=== PATIENT | male | born 1975 | race Caucasian/White ===

== ENCOUNTER 2017-07-03 10:09 | Emergency (ER) | END 2017-07-03 17:03 | disposition home or self-care (01) ==

== ENCOUNTER 2017-07-14 16:15 | Inpatient (IN) | END 2017-07-16 16:45 | disposition home or self-care (01) | DRG 378 ==

== ENCOUNTER 2017-07-31 09:05 | Emergency (ER) | END 2017-07-31 19:05 | disposition home or self-care (01) ==

== ENCOUNTER 2017-08-01 09:57 | Emergency (ER) | END 2017-08-01 22:08 | disposition left against medical advice (07) ==

== ENCOUNTER 2017-08-14 08:16 | Emergency (ER) | END 2017-08-14 12:22 | disposition home or self-care (01) ==

== ENCOUNTER 2017-08-27 07:09 | Emergency (ER) | END 2017-08-27 10:08 | disposition home or self-care (01) ==

== ENCOUNTER 2017-09-09 07:12 | Emergency (ER) | END 2017-09-09 16:07 | disposition home or self-care (01) ==

== ENCOUNTER 2017-09-18 07:12 | Emergency (ER) | END 2017-09-18 10:51 | disposition home or self-care (01) ==

== ENCOUNTER 2017-10-02 07:48 | Emergency (ER) | END 2017-10-02 10:22 | disposition home or self-care (01) ==

== ENCOUNTER 2017-10-11 07:44 | Emergency (ER) | END 2017-10-11 10:34 | disposition home or self-care (01) ==

== ENCOUNTER 2017-10-14 13:47 | Emergency (ER) | END 2017-10-14 18:43 | disposition left against medical advice (07) ==

== ENCOUNTER 2017-10-19 09:58 | Emergency (ER) | END 2017-10-19 12:55 | disposition home or self-care (01) ==

== ENCOUNTER 2017-10-27 10:15 | Emergency (ER) | END 2017-10-27 14:30 | disposition home or self-care (01) ==

== ENCOUNTER 2017-11-02 10:18 | Emergency (ER) | END 2017-11-02 13:14 | disposition home or self-care (01) ==

== ENCOUNTER 2017-11-03 08:52 | Emergency (ER) | END 2017-11-03 14:57 | disposition home or self-care (01) ==

== ENCOUNTER 2017-11-09 09:14 | Emergency (ER) | END 2017-11-09 14:02 | disposition home or self-care (01) ==

== ENCOUNTER 2017-11-30 08:38 | Emergency (ER) | END 2017-11-30 12:38 | disposition left against medical advice (07) ==

== ENCOUNTER 2017-12-07 08:29 | Emergency (ER) | END 2017-12-07 12:45 | disposition home or self-care (01) ==

== ENCOUNTER 2017-12-22 09:18 | Emergency (ER) | END 2017-12-22 15:15 | disposition home or self-care (01) ==

== ENCOUNTER 2018-01-01 08:00 | Emergency (ER) | END 2018-01-01 12:10 | disposition home or self-care (01) ==

== ENCOUNTER 2018-01-14 07:45 | Emergency (ER) | END 2018-01-14 10:01 | disposition home or self-care (01) ==

== ENCOUNTER 2018-01-26 08:06 | Emergency (ER) | END 2018-01-27 01:45 | disposition left against medical advice (07) ==

== ENCOUNTER 2018-01-27 07:34 | Emergency (ER) | END 2018-01-27 10:15 | disposition home or self-care (01) ==

== ENCOUNTER 2018-02-01 08:15 | Emergency (ER) | END 2018-02-01 11:44 | disposition home or self-care (01) ==

== ENCOUNTER 2018-02-08 09:31 | Emergency (ER) | END 2018-02-08 12:05 | disposition home or self-care (01) ==

== ENCOUNTER 2018-02-12 08:27 | Emergency (ER) | END 2018-02-12 16:25 | disposition home or self-care (01) ==

== ENCOUNTER 2018-02-22 09:45 | Emergency (ER) | END 2018-02-22 13:50 | disposition home or self-care (01) ==

== ENCOUNTER 2018-02-28 09:10 | Emergency (ER) | END 2018-02-28 12:44 | disposition home or self-care (01) ==

== ENCOUNTER 2018-03-05 08:37 | Emergency (ER) | END 2018-03-05 11:25 | disposition home or self-care (01) ==

== ENCOUNTER 2018-03-11 08:07 | Emergency (ER) | END 2018-03-11 10:26 | disposition home or self-care (01) ==

== ENCOUNTER 2018-03-16 09:02 | Emergency (ER) | END 2018-03-16 14:26 | disposition home or self-care (01) ==

== ENCOUNTER 2018-03-24 09:03 | Emergency (ER) | END 2018-03-24 12:29 | disposition home or self-care (01) ==

== ENCOUNTER 2018-03-29 09:41 | Emergency (ER) | END 2018-03-29 12:46 | disposition home or self-care (01) ==

== ENCOUNTER 2018-04-02 07:45 | Emergency (ER) | END 2018-04-02 08:37 | disposition home or self-care (01) ==

== ENCOUNTER 2018-04-09 07:02 | Emergency (ER) | END 2018-04-09 13:27 | disposition home or self-care (01) ==

== ENCOUNTER 2018-04-26 09:33 | Emergency (ER) | END 2018-04-26 14:40 | disposition left against medical advice (07) ==

== ENCOUNTER 2018-05-06 07:46 | Emergency (ER) | END 2018-05-06 09:06 | disposition left against medical advice (07) ==

== ENCOUNTER 2018-05-07 14:18 | Emergency (ER) | END 2018-05-07 17:06 | disposition left against medical advice (07) ==

== ENCOUNTER 2018-05-08 22:17 | Emergency (ER) | END 2018-05-09 04:15 | disposition home or self-care (01) ==

== ENCOUNTER 2018-05-20 07:45 | Emergency (ER) | END 2018-05-20 09:14 | disposition home or self-care (01) ==

== ENCOUNTER 2018-05-26 06:09 | Emergency (ER) | END 2018-05-26 11:33 | disposition home or self-care (01) ==

== ENCOUNTER 2018-05-31 07:39 | Emergency (ER) | END 2018-05-31 09:41 | disposition home or self-care (01) ==

== ENCOUNTER 2018-05-31 10:16 | Emergency (ER) | END 2018-05-31 11:57 | disposition home or self-care (01) ==

== ENCOUNTER 2018-06-05 10:20 | Emergency (ER) | END 2018-06-05 14:31 | disposition home or self-care (01) ==

== ENCOUNTER 2018-06-18 06:08 | Emergency (ER) | END 2018-06-18 09:06 | disposition home or self-care (01) ==

== ENCOUNTER 2018-06-25 05:58 | Emergency (ER) | END 2018-06-25 06:50 | disposition left against medical advice (07) ==

== ENCOUNTER 2018-06-26 07:04 | Emergency (ER) | END 2018-06-26 09:36 | disposition home or self-care (01) ==

== ENCOUNTER 2018-07-03 07:42 | Emergency (ER) | payer SELFPAY ==
[~2018-07-03] VITALS: Ht 170.2 cm; Wt 73.0 kg
[~2018-07-03 07:42] MED LIST: ESOM40CA PO; FOLI0.8T2 PO; FURO40TA4 PO; MIDO10TA PO; RIFA550T4 PO; SPIR100T4 PO; THIA100T10 PO
[2018-07-03 07:44] VITALS: Ht 170.2 cm; Wt 73.0 kg
== END 2018-07-03 08:00 | disposition left against medical advice (07) ==
LOC: E/R 07:42
DX: Z53.21 Procedure and treatment not carried out due to patient leaving prior to being seen by health care provider (principal)

== ENCOUNTER 2018-07-04 05:35 | Emergency (ER) | payer MEDICAID ==
[~2018-07-04] VITALS: Ht 170.2 cm; Wt 72.4 kg
[2018-07-04 05:42] VITALS: Ht 170.2 cm; Wt 72.4 kg
--- NOTE | 2018-07-04 06:36 | ERD ---
ER Documentation Chief Complaint Chief Complaint c/o abdominal distention, hx of liver cirrhosis HPI This is a 42-year-old male with history of liver cirrhosis and ascites who is here for therapeutic paracentesis only has no abdominal pain no fever no nausea vomiting diarrhea ROS All systems reviewed and are negative except as per history of present illness. Medications Home Meds Reported Medications Spironolactone* (Spironolactone*) 100 Mg Tablet, 100 MG PO DAILY, TAB 06/18/18 Furosemide* (Furosemide*) 40 Mg Tablet, 40 MG PO DAILY, TAB 06/18/18 Esomeprazole Mag Trihydrate (Nexium) 40 Mg Capsule.dr, 40 MG PO DAILY, #30 CAP 02/22/18 Folic Acid/Vitamin B Comp W-C (Renal Multivitamin Tablet) 0.8 Mg Tablet, 0.8 MG PO DAILY, TAB 02/08/18 Thiamine* (Thiamine*) 100 Mg Tablet, 100 MG PO DAILY, TAB 10/27/17 Rifaximin* (Xifaxan*) 550 Mg Tablet, 550 MG PO BID, TAB 10/27/17 Midodrine* (Midodrine*) 10 Mg Tablet, 10 MG PO TID, TAB 10/27/17 Allergies Allergies: Coded Allergies: No Known Allergy (Unverified , 06/26/18) PMhx/Soc History of Surgery: No Anesthesia Reaction: No Hx Neurological Disorder: No Hx Respiratory Disorders: No Hx Cardiac Disorders: No Hx Psychiatric Problems: No Hx Miscellaneous Medical Probl: No (alcohol abuse; liver cirrhosis) Hx Alcohol Use: Yes Hx Substance Use: No Hx Tobacco Use: No Smoking Status: Never smoker FmHx Family History: No coronary disease Physical Exam Vitals Vital Signs Date Temp Pulse Resp B/P (MAP) Pulse Ox O2 O2 Flow FiO2 Time Delivery Rate 07/04/18 98.2 82 18 133/80 98 05:42 (97) Physical Exam Const: Well-developed, well-nourished Head: Atraumatic, normocephalic Eyes: Normal Conjunctiva, PERRLA, EOMI, normal sclera, no nystagmus ENT: Normal External Ears, Nose and Mouth, moist mucus membranes. Neck: Full range of motion. No meningismus, no lymphadenopathy. Resp: Clear to auscultation bilaterally, no wheezing, rhonchi, rales Cardio: Regular rate and rhythm, no murmurs, S1 S2 present Abd: Soft, non tender x 4, ascites. Normal bowel sounds, no guarding or rebound, no pulsitile abdominal masses or bruits Skin: No petechiae or rashes, no ecchymosis , no maculopapular rash Back: No midline or flank tenderness Ext: No cyanosis, or edema, FROM x 4, normal inspection, neur ovascularly intact x 4 Neur: Awake and alert, STR 5/5 x 4, sensation intact x 4, no focal findings, cerebellum intact Psych: Normal Mood and Affect Procedures/MDM Patient will get a therapeutic paracentesis by interventional radiologist and then be discharged home Departure Diagnosis: Primary Impression: Ascites Ascites type: other type Qualified Codes: R18.8 - Other ascites Condition: Stable VLAD HOBBS DO Jul 04, 2018 06:36
== END 2018-07-04 07:11 | disposition home or self-care (01) ==
LOC: E/R 05:35
DX: R18.8 Other ascites (principal)
CPT/HCPCS: 99282

== ENCOUNTER 2018-07-06 07:38 | Emergency (ER) | payer MEDICAID ==
[~2018-07-06] VITALS: Ht 167.6 cm; Wt 74.9 kg
[2018-07-06 07:40] VITALS: Ht 167.6 cm; Wt 74.9 kg
--- NOTE | 2018-07-06 11:36 | ERD ---
ER Documentation Chief Complaint Chief Complaint Complains of abdominla pain Hx of Ascites HPI 42-year-old male with an extensive history of ascites from alcoholic liver disease presents the emergency department for recurrent ascites. Patient presents often for drainage of his fluid and presents again for routine drainage of his fluid. He reports no abdominal pain, fevers, melena or any other complaints. ROS All systems reviewed and are negative except as per history of present illness. Medications Home Meds Reported Medications Spironolactone* (Spironolactone*) 100 Mg Tablet, 100 MG PO DAILY, TAB 06/18/18 Furosemide* (Furosemide*) 40 Mg Tablet, 40 MG PO DAILY, TAB 06/18/18 Esomeprazole Mag Trihydrate (Nexium) 40 Mg Capsule.dr, 40 MG PO DAILY, #30 CAP 02/22/18 Folic Acid/Vitamin B Comp W-C (Renal Multivitamin Tablet) 0.8 Mg Tablet, 0.8 MG PO DAILY, TAB 02/08/18 Thiamine* (Thiamine*) 100 Mg Tablet, 100 MG PO DAILY, TAB 10/27/17 Rifaximin* (Xifaxan*) 550 Mg Tablet, 550 MG PO BID, TAB 10/27/17 Midodrine* (Midodrine*) 10 Mg Tablet, 10 MG PO TID, TAB 10/27/17 Allergies Allergies: Coded Allergies: No Known Allergy (Unverified , 06/26/18) PMhx/Soc History of Surgery: No Anesthesia Reaction: No Hx Neurological Disorder: No Hx Respiratory Disorders: No Hx Cardiac Disorders: No Hx Psychiatric Problems: No Hx Miscellaneous Medical Probl: No (alcohol abuse; liver cirrhosis) Hx Alcohol Use: Yes (FORMER) Hx Substance Use: No Hx Tobacco Use: No Smoking Status: Never smoker FmHx Noncontributory for chief complaint Physical Exam Vitals Vital Signs Date Temp Pulse Resp B/P (MAP) Pulse Ox O2 O2 Flow FiO2 Time Delivery Rate 07/06/18 97.8 93 20 143/89 97 07:40 (107) Physical Exam GENERAL: Chronically ill male in no acute distress HEENT: Pupils equal, round, and reactive to light. EOMI. There is no scleral icterus. NECK: C-spine is soft and supple, there is no meningismus. There is no cervical lymphadenopathy. LUNGS: Clear to auscultation bilaterally. There are no rales, wheezes or rhonchi. HEART: Regular rate and rhythm, no murmurs, clicks, rubs or gallops. ABDOMEN: Soft, fluid wave appreciated. Nontender. No rebound or guarding. EXTREMITIES: There is no peripheral cyanosis or edema. No focal swelling or erythema. NEURO: The patient moves all four extremities with 5/5 strength. Cranial nerves II - XII are intact. Normal gait. Alert and oriented, no asterixis SKIN: There is no apparent rash or petechiae. HEME/LYMPHATIC: There is no evidence of excessive bruising or lymphedema. PSYCHIATRIC: The patient does not appear anxious or depressed. Procedures/MDM Patient was taken to a room, seen and examined. No significant decompensation was appreciated. A routine therapeutic paracentesis was ordered. 1135: Patient was reevaluated post paracentesis and felt much better Medical decision makin-year-old male presents the emergency department for therapeutic paracentesis. Patient shows no evidence of significant decompensated SBP, bleeding, infection. Patient appears clinically well and appropriate for outpatient care. Departure Diagnosis: Primary Impression: Alcoholic cirrhosis of liver with ascites Condition: Stable Patient Instructions: Ascites DONELL GORMAN Jul 06, 2018 11:36
[2018-07-06 11:37] VITALS: BP 130/87; PULSE 89; RESP 16
[2018-07-06] MEDS ORDERED: LIDOCAINE 1% (MPF) 5 ML VIAL ONE (13:59)
--- NOTE | 2018-07-06 14:01 | NUR ---
US GUIDED RT PARACENTESIS PERFORMED PER DR CALDWELL 4500ML FLUID ASPIRATED AND DISCARDED PT TOLERATED PROCEDURE WELL
== END 2018-07-06 11:38 | disposition home or self-care (01) ==
LOC: E/R 07:38
DX: K70.31 Alcoholic cirrhosis of liver with ascites (principal)
CPT/HCPCS: Z7502; Z7610

== ENCOUNTER 2018-07-13 11:06 | Emergency (ER) | payer SELFPAY ==
[2018-07-14] MEDS ORDERED: LACT20SO2 PO (08:23)
[2018-07-14] MEDS ORDERED: MELA10CA PO (08:24)
== END 2018-07-13 11:28 | disposition left against medical advice (07) ==
LOC: E/R 11:06
DX: Z53.21 Procedure and treatment not carried out due to patient leaving prior to being seen by health care provider (principal)

== ENCOUNTER 2018-07-14 04:00 | Emergency (ER) | payer SELFPAY ==
[~2018-07-14] VITALS: Ht 170.2 cm; Wt 74.4 kg
[2018-07-14 04:03] VITALS: Ht 170.2 cm; Wt 74.4 kg
[2018-07-14] MEDS ORDERED: LACT20SO2 PO (08:23)
[2018-07-14] MEDS ORDERED: MELA10CA PO (08:24)
== END 2018-07-14 06:10 | disposition left against medical advice (07) ==
LOC: E/R 04:00
DX: Z53.21 Procedure and treatment not carried out due to patient leaving prior to being seen by health care provider (principal)

== ENCOUNTER 2018-07-14 06:52 | Emergency (ER) | payer MEDICAID ==
[~2018-07-14] VITALS: Wt 74.1 kg
[2018-07-14] MEDS ORDERED: LACT20SO2 PO (08:23)
[2018-07-14] MEDS ORDERED: MELA10CA PO (08:24)
[2018-07-14] MEDS ORDERED: LIDOCAINE 1% (MPF) 5 ML VIAL ONE (09:49)
--- NOTE | 2018-07-14 12:06 | ERD ---
ER Documentation Chief Complaint Chief Complaint PT HERE FOR AP/PARACENTESIS HPI Patient is a 42-year-old male with cirrhosis who presents for paracentesis. He has abdominal distention. He denies fevers. He has had multiple visits to the ER for similar. Review of the emergency department information exchange system shows visits to 5 separate emergency departments. ROS All systems reviewed and are negative except as per history of present illness. Medications Home Meds Reported Medications Melatonin (Melatonin) 10 Mg Capsule, 10 MG PO HS, CAP 07/14/18 Lactulose* (Lactulose*) 20 Gm/30 Ml Solution, 20 GM PO BID PRN for CONSTIPATION, ML 07/14/18 Spironolactone* (Spironolactone*) 100 Mg Tablet, 100 MG PO DAILY, TAB 06/18/18 Furosemide* (Furosemide*) 40 Mg Tablet, 40 MG PO DAILY, TAB 06/18/18 Esomeprazole Mag Trihydrate (Nexium) 40 Mg Capsule.dr, 40 MG PO DAILY, #30 CAP 02/22/18 Folic Acid/Vitamin B Comp W-C (Renal Multivitamin Tablet) 0.8 Mg Tablet, 0.8 MG PO DAILY, TAB 02/08/18 Thiamine* (Thiamine*) 100 Mg Tablet, 100 MG PO DAILY, TAB 10/27/17 Rifaximin* (Xifaxan*) 550 Mg Tablet, 550 MG PO BID, TAB 10/27/17 Midodrine* (Midodrine*) 10 Mg Tablet, 10 MG PO TID, TAB 10/27/17 Allergies Allergies: Coded Allergies: No Known Allergy (Unverified , 07/14/18) PMhx/Soc History of Surgery: No Anesthesia Reaction: No Hx Neurological Disorder: No Hx Respiratory Disorders: No Hx Cardiac Disorders: No Hx Psychiatric Problems: No Hx Miscellaneous Medical Probl: No (alcohol abuse; liver cirrhosis) Hx Alcohol Use: Yes (FORMER) Hx Substance Use: No Hx Tobacco Use: No Smoking Status: Never smoker FmHx Family History: No diabetes Physical Exam Vitals Vital Signs Date Temp Pulse Resp B/P (MAP) Pulse Ox O2 O2 Flow FiO2 Time Delivery Rate 07/14/18 97.2 95 16 131/75 98 06:55 (93) Physical Exam Const: No acute distress Head: Atraumatic Eyes: Normal Conjunctiva ENT: Normal External Ears, Nose and Mouth. Neck: Full range of motion. No meningismus. Resp: Clear to auscultation bilaterally Cardio: Regular rate and rhythm, no murmurs Abd: Soft, abdominal distention with positive fluid wave Skin: No petechiae or rashes Back: No midline or flank tenderness Ext: No cyanosis, or edema Neur: Awake and alert Psych: Normal Mood and Affect Results 24 hrs Current Medications Medications Dose Sig/Ivan Start Time Status Last (Trade) Ordered Route PRN Stop Time Admin Dose Reason Admin Lidocaine 5 ml STK-MED 07/14/18 DC (Xylocaine ONCE .ROUTE 09:49 1% (Mpf)) 07/14/18 09:50 Procedures/MDM Ultrasound-guided paracentesis performed by radiology. Labs were done within the last 30 days. Patient is a 42-year-old male who presents with acute ascites. Paracentesis was completed. The patient will be discharged. I doubt spontaneous bacterial peritonitis. Departure Diagnosis: Primary Impression: Abdominal pain Abdominal location: generalized Qualified Codes: R10.84 - Generalized abdominal pain Additional Impression: Ascites Ascites type: other type Qualified Codes: R18.8 - Other ascites Condition: Fair Patient Instructions: Ascites Referrals: [facility] YOU HAVE RECEIVED A MEDICAL SCREENING EXAM AND THE RESULTS INDICATE THAT YOU DO NOT HAVE A CONDITION THAT REQUIRES URGENT TREATMENT IN THE EMERGENCY DEPARTMENT. FURTHER EVALUATION AND TREATMENT OF YOUR CONDITION CAN WAIT UNTIL YOU ARE SEEN IN YOUR DOCTORS OFFICE WITHIN THE NEXT 1-2 DAYS. IT IS YOUR RESPONSIBILITY TO MAKE AN APPOINTMENT FOR FOLOW-UP CARE. IF YOU HAVE A PRIMARY DOCTOR --you should call your primary doctor and schedule an appointment IF YOU DO NOT HAVE A PRIMARY DOCTOR YOU CAN CALL OUR PHYSICIAN REFERRAL HOTLINE AT IF YOU CAN NOT AFFORD TO SEE A PHYSICIAN YOU CAN CHOSE FROM THE FOLLOWING [facility] [address] [facility]. [facility] [address] [facility]. [facility] [address] [facility] [facility] [address] [facility]. [facility] [address] [facility]. [facility]. [address] Additional Instructions: Call your primary care doctor TOMORROW for an appointment during the next 1 WEEK.Tell the inclusion intern that you were referred from this facility.See the doctor sooner or return here if your condition worsens before your appointment time. MARILUZ DOHERTY MD Jul 14, 2018 12:06
== END 2018-07-14 11:08 | disposition home or self-care (01) ==
LOC: E/R 06:52
DX: R14.0 Abdominal distension (gaseous) (principal); R18.8 Other ascites
CPT/HCPCS: 49083; Z7502; Z7610

== ENCOUNTER 2018-07-21 07:59 | Emergency (ER) | payer MEDICAID ==
[~2018-07-21] VITALS: Ht 167.6 cm; Wt 69.6 kg
[~2018-07-21 07:59] MED LIST changes: +LACT20SO2 PO; +MELA10CA PO
[2018-07-21 08:02] VITALS: Ht 167.6 cm; Wt 69.6 kg
--- NOTE | 2018-07-21 08:14 | ERD ---
ER Documentation Chief Complaint Chief Complaint Complains of abdominal pain Hx of Ascites HPI 42-year-old male with a history of alcoholic alcoholic liver cirrhosis and ascites and frequent paracenteses, well-known to this ED presents to the ED complaining of mild abdominal distention. Denies abdominal pain, nausea, vomiting, diarrhea, constipation, hematemesis, hematochezia or melanotic stools. No shortness of breath or cough. Denies leg pain or swelling. No fevers or chills. Patient reports that his weight has been stable and he has an appointment at [facility] hematology July 29 and thinks he can make it until then without a repeat paracentesis. ROS All systems reviewed and are negative except as per history of present illness. Medications Home Meds Reported Medications Melatonin (Melatonin) 10 Mg Capsule, 10 MG PO HS, CAP 07/14/18 Lactulose* (Lactulose*) 20 Gm/30 Ml Solution, 20 GM PO BID PRN for CONSTIPATION, ML 07/14/18 Spironolactone* (Spironolactone*) 100 Mg Tablet, 100 MG PO DAILY, TAB 06/18/18 Furosemide* (Furosemide*) 40 Mg Tablet, 40 MG PO DAILY, TAB 06/18/18 Esomeprazole Mag Trihydrate (Nexium) 40 Mg Capsule.dr, 40 MG PO DAILY, #30 CAP 02/22/18 Folic Acid/Vitamin B Comp W-C (Renal Multivitamin Tablet) 0.8 Mg Tablet, 0.8 MG PO DAILY, TAB 02/08/18 Thiamine* (Thiamine*) 100 Mg Tablet, 100 MG PO DAILY, TAB 10/27/17 Rifaximin* (Xifaxan*) 550 Mg Tablet, 550 MG PO BID, TAB 10/27/17 Midodrine* (Midodrine*) 10 Mg Tablet, 10 MG PO TID, TAB 10/27/17 Allergies Allergies: Coded Allergies: No Known Allergy (Unverified , 07/14/18) PMhx/Soc Reviewed in chart. As per HPI. History of Surgery: No Anesthesia Reaction: No Hx Neurological Disorder: No Hx Respiratory Disorders: No Hx Cardiac Disorders: No Hx Psychiatric Problems: No Hx Miscellaneous Medical Probl: No (alcohol abuse; liver cirrhosis) Hx Alcohol Use: Yes (FORMER) Hx Substance Use: No Hx Tobacco Use: No Physical Exam Vitals Vital Signs Date Temp Pulse Resp B/P (MAP) Pulse Ox O2 O2 Flow FiO2 Time Delivery Rate 07/21/18 98.0 86 20 134/82 100 08:02 (99) Physical Exam Const: No acute distress Head: Atraumatic Eyes: Normal Conjunctiva. Anicteric. ENT: Normal External Ears, Nose and Mouth. Neck: Full range of motion. No meningismus. Resp: Clear to auscultation bilaterally. No rales or wheezes. Cardio: Regular rate and rhythm, no murmurs Abd: Soft, non tender, distended. Positive fluid wave. Normal bowel sounds. No rebound or guarding. Skin: Spider hemangiomata Back: No midline or flank tenderness Ext: No cyanosis, or edema Neur: Awake and alert. No focal deficit Psych: Normal Mood and Affect Procedures/MDM DOCUMENTS REVIEWED: ED nurse, prior ED, prior records MEDICAL DECISION MAKIN-year-old male with a history of alcoholic alcoholic liver cirrhosis and ascites and frequent paracenteses, well-known to this ED presents to the ED complaining of mild abdominal distention. No shortness of breath, signs of volume overload or indication for urgent paracentesis at this time. Patient is comfortable and thinks he can make it to his appointment at [facility] had pathology on July 29. Stable for discharge with precautionary instructions and outpatient follow-up as counseled. Counseled patient and family regarding diagnostic workup, diagnosis and need for followup. Understands to return to ED if symptoms recur, worsen or any other concerns. Departure Diagnosis: Primary Impression: Alcoholic cirrhosis of liver with ascites Condition: Stable KATELYNN CRESPO MD Jul 21, 2018 08:14
== END 2018-07-21 08:58 | disposition home or self-care (01) ==
LOC: E/R 07:59
DX: K70.31 Alcoholic cirrhosis of liver with ascites (principal)
CPT/HCPCS: 99283

== ENCOUNTER 2018-07-27 07:02 | Emergency (ER) | payer MEDICAID ==
[~2018-07-27] VITALS: Ht 167.6 cm; Wt 74.9 kg
[2018-07-27 07:05] VITALS: Ht 167.6 cm; Wt 74.9 kg
--- NOTE | 2018-07-27 10:03 | ERD ---
ER Documentation Chief Complaint Chief Complaint Complains of abdominal pain Hx of Ascites HPI This is a well-known patient to the ER who is here for therapeutic paracentesis. He has no physical complaints other than some abdominal swelling. He says is "not that bad at this time". ROS All systems reviewed and are negative except as per history of present illness. Medications Home Meds Reported Medications Melatonin (Melatonin) 10 Mg Capsule, 10 MG PO HS, CAP 07/14/18 Lactulose* (Lactulose*) 20 Gm/30 Ml Solution, 20 GM PO BID PRN for CONSTIPATION, ML 07/14/18 Spironolactone* (Spironolactone*) 100 Mg Tablet, 100 MG PO DAILY, TAB 06/18/18 Furosemide* (Furosemide*) 40 Mg Tablet, 40 MG PO DAILY, TAB 06/18/18 Esomeprazole Mag Trihydrate (Nexium) 40 Mg Capsule.dr, 40 MG PO DAILY, #30 CAP 02/22/18 Folic Acid/Vitamin B Comp W-C (Renal Multivitamin Tablet) 0.8 Mg Tablet, 0.8 MG PO DAILY, TAB 02/08/18 Thiamine* (Thiamine*) 100 Mg Tablet, 100 MG PO DAILY, TAB 10/27/17 Rifaximin* (Xifaxan*) 550 Mg Tablet, 550 MG PO BID, TAB 10/27/17 Midodrine* (Midodrine*) 10 Mg Tablet, 10 MG PO TID, TAB 10/27/17 Allergies Allergies: Coded Allergies: No Known Allergy (Unverified , 07/14/18) PMhx/Soc History of Surgery: No Anesthesia Reaction: No Hx Neurological Disorder: No Hx Respiratory Disorders: No Hx Cardiac Disorders: No Hx Psychiatric Problems: No Hx Miscellaneous Medical Probl: No (alcohol abuse; liver cirrhosis) Hx Alcohol Use: Yes (FORMER) Hx Substance Use: No Hx Tobacco Use: No FmHx Family History: No coronary disease Physical Exam Vitals Vital Signs Date Temp Pulse Resp B/P (MAP) Pulse Ox O2 O2 Flow FiO2 Time Delivery Rate 07/27/18 98.0 85 20 136/86 98 07:05 (103) Physical Exam Const: No acute distress Head: Atraumatic Eyes: Normal Conjunctiva ENT: Normal External Ears, Nose and Mouth. Neck: Full range of motion. No meningismus. Resp: Clear to auscultation bilaterally Cardio: Regular rate and rhythm, no murmurs Abd: Soft, non tender, mild ascites. Normal bowel sounds Skin: No petechiae or rashes Back: No midline or flank tenderness Ext: No cyanosis, or edema Neur: Awake and alert Psych: Normal Mood and Affect Procedures/MDM Patient says he is tired of waiting here. He decided that he will leave the ER and go to [facility] or he will be treated and evaluated there. Departure Diagnosis: Primary Impression: Ascites Ascites type: other type Qualified Codes: R18.8 - Other ascites Condition: Stable Patient Instructions: Ascites Referrals: NO PRIMARY,CARE PHYSICIAN (PCP) VLAD HOBBS DO Jul 27, 2018 10:03
[2018-07-27 11:22] VITALS: BP 135/84; PULSE 86; RESP 17
--- NOTE | 2018-07-27 11:26 | NUR ---
US GUIDED RT PARACENTESIS PERFORMED PER DR CALDWELL 4200 ML FLUID ASPIRATED AND DISCARDED PT TOLERATED PROCEDURE WELL
[2018-07-27] MEDS ORDERED: LIDOCAINE 1% (MPF) 5 ML VIAL ONE (11:37)
== END 2018-07-27 11:24 | disposition home or self-care (01) ==
LOC: E/R 07:02
DX: R18.8 Other ascites (principal)
CPT/HCPCS: 49083; Z7502; Z7610

== ENCOUNTER 2018-08-20 06:44 | Emergency (ER) | payer MEDICAID ==
[~2018-08-20] VITALS: Ht 170.2 cm; Wt 77.0 kg
[2018-08-20 06:45] VITALS: Ht 170.2 cm; Wt 77.0 kg
[2018-08-20 07:14] VITALS: BP 119/89; PULSE 80; RESP 18
--- NOTE | 2018-08-20 07:15 | ERD ---
ER Documentation Chief Complaint Chief Complaint needs paracentsis HPI 42-year-old male presents the emergency department complaining of abdominal swelling. Patient states she had an upper respiratory infection over the last few days but has been compliant with his medications for his cirrhosis. He reports swelling in his abdomen. He reports no abdominal pain, no fevers, chills, melena, hematemesis. Patient reports no shortness of breath. ROS All systems reviewed and are negative except as per history of present illness. Medications Home Meds Reported Medications Melatonin (Melatonin) 10 Mg Capsule, 10 MG PO HS, CAP 07/14/18 Lactulose* (Lactulose*) 20 Gm/30 Ml Solution, 20 GM PO BID PRN for CONSTIPATION, ML 07/14/18 Spironolactone* (Spironolactone*) 100 Mg Tablet, 100 MG PO DAILY, TAB 06/18/18 Furosemide* (Furosemide*) 40 Mg Tablet, 40 MG PO DAILY, TAB 06/18/18 Esomeprazole Mag Trihydrate (Nexium) 40 Mg Capsule.dr, 40 MG PO DAILY, #30 CAP 02/22/18 Folic Acid/Vitamin B Comp W-C (Renal Multivitamin Tablet) 0.8 Mg Tablet, 0.8 MG PO DAILY, TAB 02/08/18 Thiamine* (Thiamine*) 100 Mg Tablet, 100 MG PO DAILY, TAB 10/27/17 Rifaximin* (Xifaxan*) 550 Mg Tablet, 550 MG PO BID, TAB 10/27/17 Midodrine* (Midodrine*) 10 Mg Tablet, 10 MG PO TID, TAB 10/27/17 Allergies Allergies: Coded Allergies: No Known Allergy (Unverified , 08/13/18) PMhx/Soc History of Surgery: No Anesthesia Reaction: No Hx Neurological Disorder: No Hx Respiratory Disorders: No Hx Cardiac Disorders: No Hx Psychiatric Problems: No Hx Miscellaneous Medical Probl: No (alcohol abuse; liver cirrhosis) Hx Alcohol Use: Yes (FORMER) Hx Substance Use: No Hx Tobacco Use: No Smoking Status: Unknown if ever smoked Physical Exam Vitals Vital Signs Date Temp Pulse Resp B/P (MAP) Pulse Ox O2 O2 Flow FiO2 Time Delivery Rate 08/20/18 76 18 122/87 97 06:57 (99) 08/20/18 97.6 78 18 132/76 98 06:45 (94) Physical Exam GENERAL: Patient is chronically ill with his cirrhosis but appears well. He is well-known to the emergency department and he looks better than I seen him in the past HEENT: Pupils equal, round, and reactive to light. EOMI. There is no scleral icterus. NECK: C-spine is soft and supple, there is no meningismus. There is no cervical lymphadenopathy. LUNGS: Clear to auscultation bilaterally. There are no rales, wheezes or rhonchi. HEART: Regular rate and rhythm, no murmurs, clicks, rubs or gallops. ABDOMEN: Soft, mildly distended. Patient does not have tense ascites at this time and looks relatively well controlled given his previous evaluations. He is nontender with no peritoneal findings. EXTREMITIES: There is no peripheral cyanosis or edema. No focal swelling or erythema. NEURO: The patient moves all four extremities with 5/5 strength. Cranial nerves II - XII are intact. Normal gait. Alert and oriented SKIN: There is no apparent rash or petechiae. HEME/LYMPHATIC: There is no evidence of excessive bruising or lymphedema. PSYCHIATRIC: The patient does not appear anxious or depressed. Procedures/MDM Patient was taken to a room, seen and examined Medical decision makin-year-old male with a known history of alcoholic liver disease and ascites presents the emergency department for evaluation of his abdominal swelling. Although he does have a small amount of fluid and ascit es in his abdomen, which is known for the patient, he appears to be relatively well controlled for his usual state of health. At this time he does not appear to need a therapeutic paracentesis and seems appropriate for outpatient care. Departure Diagnosis: Primary Impression: Ascites Condition: Stable Patient Instructions: Ascites Additional Instructions: Please follow up with your doctor. Continue your usual medications Return for any problems or concerns DONELL GORMAN Aug 20, 2018 07:15
== END 2018-08-20 07:18 | disposition home or self-care (01) ==
LOC: E/R 06:44
DX: R18.8 Other ascites (principal)
CPT/HCPCS: 99282

== ENCOUNTER 2018-08-22 07:28 | Emergency (ER) | payer MEDICAID ==
[~2018-08-22] VITALS: Ht 172.7 cm; Wt 72.0 kg
[2018-08-22 07:35] VITALS: BP 153/85; PULSE 73; RESP 16; Ht 172.7 cm; Wt 72.0 kg
--- NOTE | 2018-08-22 12:59 | ERD ---
ER Documentation Chief Complaint Chief Complaint pt is bib self for paracentesis, hx same HPI Patient is a 42-year-old male with cirrhosis who presents for paracentesis. He gets frequent paracentesis and he is well-known to myself and to our staff for similar. He denies fevers. Upon review of old medical record the patient has multiple visits for the same. ROS All systems reviewed and are negative except as per history of present illness. Medications Home Meds Reported Medications Melatonin (Melatonin) 10 Mg Capsule, 10 MG PO HS, CAP 07/14/18 Lactulose* (Lactulose*) 20 Gm/30 Ml Solution, 20 GM PO BID PRN for CONSTIPATION, ML 07/14/18 Spironolactone* (Spironolactone*) 100 Mg Tablet, 100 MG PO DAILY, TAB 06/18/18 Furosemide* (Furosemide*) 40 Mg Tablet, 40 MG PO DAILY, TAB 06/18/18 Esomeprazole Mag Trihydrate (Nexium) 40 Mg Capsule.dr, 40 MG PO DAILY, #30 CAP 02/22/18 Folic Acid/Vitamin B Comp W-C (Renal Multivitamin Tablet) 0.8 Mg Tablet, 0.8 MG PO DAILY, TAB 02/08/18 Thiamine* (Thiamine*) 100 Mg Tablet, 100 MG PO DAILY, TAB 10/27/17 Rifaximin* (Xifaxan*) 550 Mg Tablet, 550 MG PO BID, TAB 10/27/17 Midodrine* (Midodrine*) 10 Mg Tablet, 10 MG PO TID, TAB 10/27/17 Allergies Allergies: Coded Allergies: No Known Allergy (Unverified , 08/13/18) PMhx/Soc History of Surgery: No Anesthesia Reaction: No Hx Neurological Disorder: No Hx Respiratory Disorders: No Hx Cardiac Disorders: No Hx Psychiatric Problems: No Hx Miscellaneous Medical Probl: No (alcohol abuse; liver cirrhosis) Hx Alcohol Use: Yes (FORMER) Hx Substance Use: No Hx Tobacco Use: No Smoking Status: Never smoker FmHx Family History: No diabetes Physical Exam Vitals Vital Signs Date Temp Pulse Resp B/P (MAP) Pulse Ox O2 O2 Flow FiO2 Time Delivery Rate 08/22/18 98.6 73 16 153/85 97 07:35 (107) Physical Exam Const: No acute distress Head: Atraumatic Eyes: Normal Conjunctiva ENT: Normal External Ears, Nose and Mouth. Neck: Full range of motion. No meningismus. Resp: Clear to auscultation bilaterally Cardio: Regular rate and rhythm, no murmurs Abd: Abdominal distention with positive fluid wave Skin: No petechiae or rashes Back: No midline or flank tenderness Ext: No cyanosis, or edema Neur: Awake and alert Psych: Normal Mood and Affect Procedures/MDM Patient is a 42-year-old male who presents with ascites. The patient was going to have an ultrasound-guided paracentesis but got tired of waiting and left prior to the procedure being done. He did not require laboratory studies as he has had labs done within the last 30 days. He can return for any worsening symptoms. I doubt spontaneous bacterial peritonitis. Departure Diagnosis: Primary Impression: Ascites Ascites type: other type Qualified Codes: R18.8 - Other ascites Condition: Fair Patient Instructions: Ascites Referrals: Your doctor Additional Instructions: Call your primary care doctor TOMORROW for an appointment during the next 1-2 days.See the doctor sooner or return here if your condition worsens before your appointment time. MARILUZ DOHERTY MD Aug 22, 2018 12:59
== END 2018-08-22 10:02 | disposition left against medical advice (07) ==
LOC: E/R 07:28
DX: R18.8 Other ascites (principal)
CPT/HCPCS: 99282

== ENCOUNTER 2018-08-23 13:43 | Emergency (ER) | payer SELFPAY ==
[~2018-08-23] VITALS: Wt 76.2 kg
[2018-08-23 13:45] VITALS: BP 142/82; PULSE 88; RESP 18
== END 2018-08-23 16:33 | disposition left against medical advice (07) ==
LOC: E/R 13:43
DX: Z53.21 Procedure and treatment not carried out due to patient leaving prior to being seen by health care provider (principal)

== ENCOUNTER 2018-08-23 16:15 | Emergency (ER) | payer MEDICAID ==
[~2018-08-23] VITALS: Wt 76.2 kg
[2018-08-23 16:28] VITALS: BP 142/82; PULSE 88; RESP 18
--- NOTE | 2018-08-23 19:56 | ERD ---
ER Documentation Chief Complaint Chief Complaint PARACENTISIS HPI This is a 42-year-old male with liver failure and he is repeatedly here for therapeutic paracentesis. He is here for another paracentesis. He says that he has been sleeping very well the past few nights because his brother in preparing for the . He says he is overdue for paracentesis because of all these activities going on unfortunately. Denies any chest pain nausea vomiting diarrhea ROS All systems reviewed and are negative except as per history of present illness. Medications Home Meds Reported Medications Melatonin (Melatonin) 10 Mg Capsule, 10 MG PO HS, CAP 07/14/18 Lactulose* (Lactulose*) 20 Gm/30 Ml Solution, 20 GM PO BID PRN for CONSTIPATION, ML 07/14/18 Spironolactone* (Spironolactone*) 100 Mg Tablet, 100 MG PO DAILY, TAB 06/18/18 Furosemide* (Furosemide*) 40 Mg Tablet, 40 MG PO DAILY, TAB 06/18/18 Esomeprazole Mag Trihydrate (Nexium) 40 Mg Capsule.dr, 40 MG PO DAILY, #30 CAP 02/22/18 Folic Acid/Vitamin B Comp W-C (Renal Multivitamin Tablet) 0.8 Mg Tablet, 0.8 MG PO DAILY, TAB 02/08/18 Thiamine* (Thiamine*) 100 Mg Tablet, 100 MG PO DAILY, TAB 10/27/17 Rifaximin* (Xifaxan*) 550 Mg Tablet, 550 MG PO BID, TAB 10/27/17 Midodrine* (Midodrine*) 10 Mg Tablet, 10 MG PO TID, TAB 10/27/17 Allergies Allergies: Coded Allergies: No Known Allergy (Unverified , 08/13/18) PMhx/Soc History of Surgery: No Anesthesia Reaction: No Hx Neurological Disorder: No Hx Respiratory Disorders: No Hx Cardiac Disorders: No Hx Psychiatric Problems: No Hx Miscellaneous Medical Probl: No (alcohol abuse; liver cirrhosis) Hx Alcohol Use: Yes (FORMER) Hx Substance Use: No Hx Tobacco Use: No Smoking Status: Never smoker FmHx Family History: No coronary disease Physical Exam Vitals Vital Signs Date Temp Pulse Resp B/P (MAP) Pulse Ox O2 O2 Flow FiO2 Time Delivery Rate 08/23/18 99.0 88 18 142/82 99 16:28 (102) Physical Exam Const: No acute distress Head: Atraumatic Eyes: Normal Conjunctiva ENT: Normal External Ears, Nose and Mouth. Neck: Full range of motion. No meningismus. Resp: Clear to auscultation bilaterally Cardio: Regular rate and rhythm, no murmurs Abd: Soft, non tender, distended with ascites. Normal bowel sounds Skin: No petechiae or rashes Back: No midline or flank tenderness Ext: No cyanosis, or edema Neur: Awake and alert Psych: Normal Mood and Affect Procedures/MDM The patient waited for paracentesis however it could not get done at this time so he eloped from the ER Departure Diagnosis: Primary Impression: Ascites Ascites type: other type Qualified Codes: R18.8 - Other ascites Condition: Stable VLAD HOBBS DO Aug 23, 2018 19:56
== END 2018-08-23 20:15 | disposition left against medical advice (07) ==
LOC: E/R 16:15
DX: R18.8 Other ascites (principal)
CPT/HCPCS: 99282

== ENCOUNTER 2018-08-23 23:53 | Emergency (ER) | payer SELFPAY ==
[~2018-08-23] VITALS: Wt 79.0 kg
[2018-08-23 23:57] VITALS: BP 155/100; PULSE 94; RESP 18
== END 2018-08-24 00:06 | disposition left against medical advice (07) ==
LOC: E/R 23:53
DX: Z53.21 Procedure and treatment not carried out due to patient leaving prior to being seen by health care provider (principal)

== ENCOUNTER 2018-08-27 06:08 | Emergency (ER) | payer MEDICAID ==
[~2018-08-27] VITALS: Wt 76.1 kg
[2018-08-27 06:10] VITALS: BP 136/76; PULSE 82; RESP 18
--- NOTE | 2018-08-27 09:10 | ERD ---
ER Documentation Chief Complaint Chief Complaint PT STATES HE NEEDS HIS ABD TAPPED AND DRAINED HPI Patient is a 42-year-old male with cirrhosis who presents for paracentesis. He gets frequent paracentesis and he is well-known to myself and to our staff. He denies fevers. Upon review of old medical record the patient has multiple visits for the same weekly issue. ROS All systems reviewed and are negative except as per history of present illness. Medications Home Meds Reported Medications Melatonin (Melatonin) 10 Mg Capsule, 10 MG PO HS, CAP 07/14/18 Lactulose* (Lactulose*) 20 Gm/30 Ml Solution, 20 GM PO BID PRN for CONSTIPATION, ML 07/14/18 Spironolactone* (Spironolactone*) 100 Mg Tablet, 100 MG PO DAILY, TAB 06/18/18 Furosemide* (Furosemide*) 40 Mg Tablet, 40 MG PO DAILY, TAB 06/18/18 Esomeprazole Mag Trihydrate (Nexium) 40 Mg Capsule.dr, 40 MG PO DAILY, #30 CAP 02/22/18 Folic Acid/Vitamin B Comp W-C (Renal Multivitamin Tablet) 0.8 Mg Tablet, 0.8 MG PO DAILY, TAB 02/08/18 Thiamine* (Thiamine*) 100 Mg Tablet, 100 MG PO DAILY, TAB 10/27/17 Rifaximin* (Xifaxan*) 550 Mg Tablet, 550 MG PO BID, TAB 10/27/17 Midodrine* (Midodrine*) 10 Mg Tablet, 10 MG PO TID, TAB 10/27/17 Allergies Allergies: Coded Allergies: No Known Allergy (Unverified , 08/13/18) PMhx/Soc Cirrhosis, recurrent ascites History of Surgery: No Anesthesia Reaction: No Hx Neurological Disorder: No Hx Respiratory Disorders: No Hx Cardiac Disorders: No Hx Psychiatric Problems: No Hx Miscellaneous Medical Probl: No (alcohol abuse; liver cirrhosis) Hx Alcohol Use: Yes (FORMER) Hx Substance Use: No Hx Tobacco Use: No FmHx Family History: No diabetes Physical Exam Vitals Vital Signs Date Temp Pulse Resp B/P (MAP) Pulse Ox O2 O2 Flow FiO2 Time Delivery Rate 08/27/18 97.3 82 18 136/76 96 06:10 (96) Physical Exam GEN: Well-developed well-nourished man, no apparent distress Cardio: Regular rate and rhythm, no murmurs Abd: Soft, protuberant, non tender, non distended. Skin: No petechiae or rashes Neur: Awake and alert x3, normal gait, speech normal Psych: Normal Mood and Affect Procedures/MDM I ordered ultrasound-guided paracentesis although patient did not want to wait for the procedure was therefore discharged from the hospital Departure Diagnosis: Primary Impression: Ascites Ascites type: other type Qualified Codes: R18.8 - Other ascites Condition: Stable Patient Instructions: Ascites EMILIANA WOOD MD Aug 27, 2018 09:10
== END 2018-08-27 07:50 | disposition home or self-care (01) ==
LOC: E/R 06:08
DX: R18.8 Other ascites (principal)
CPT/HCPCS: 99282

== ENCOUNTER 2018-08-28 22:23 | Emergency (ER) | payer SELFPAY ==
[2018-08-22 07:35] VITALS: BMI 24.1
[2018-08-27 06:10] VITALS: BP 136/76; PULSE 82; RESP 18
== END 2018-08-28 22:45 | disposition left against medical advice (07) ==
LOC: E/R 22:23
DX: Z53.21 Procedure and treatment not carried out due to patient leaving prior to being seen by health care provider (principal)

== ENCOUNTER 2018-08-29 04:21 | Emergency (ER) | payer MEDICAID ==
[~2018-08-29] VITALS: Ht 170.2 cm; Wt 75.0 kg
[2018-08-29 04:24] VITALS: BP 140/101; PULSE 94; RESP 19; Ht 170.2 cm; Wt 75.0 kg
== END 2018-08-29 04:55 | disposition left against medical advice (07) ==
LOC: E/R 04:21
DX: Z53.21 Procedure and treatment not carried out due to patient leaving prior to being seen by health care provider (principal)

== ENCOUNTER → 2018-08-29 | Emergency (ER) | payer MEDICAID ==
[~2018-08-29] VITALS: Ht 170.2 cm; Wt 75.0 kg
[2018-08-29 08:38] VITALS: BP 146/90; PULSE 79; RESP 18; Ht 170.2 cm; Wt 75.0 kg
--- NOTE | 2018-08-29 09:11 | ERD ---
ER Documentation Chief Complaint Chief Complaint pt is bib self with c/o abd swelling, seen here this am for same , LWBS HPI 42-year-old gentleman with known ascites who presents to the emergency room requesting a paracentesis. Patient was seen earlier this morning but left without being seen. Patient denies any fevers or chills, hematemesis. No abdominal pain only mild distention. ROS All systems reviewed and are negative except as per history of present illness. Medications Home Meds Reported Medications Melatonin (Melatonin) 10 Mg Capsule, 10 MG PO HS, CAP 07/14/18 Lactulose* (Lactulose*) 20 Gm/30 Ml Solution, 20 GM PO BID PRN for CONSTIPATION, ML 07/14/18 Spironolactone* (Spironolactone*) 100 Mg Tablet, 100 MG PO DAILY, TAB 06/18/18 Furosemide* (Furosemide*) 40 Mg Tablet, 40 MG PO DAILY, TAB 06/18/18 Esomeprazole Mag Trihydrate (Nexium) 40 Mg Capsule.dr, 40 MG PO DAILY, #30 CAP 02/22/18 Folic Acid/Vitamin B Comp W-C (Renal Multivitamin Tablet) 0.8 Mg Tablet, 0.8 MG PO DAILY, TAB 02/08/18 Thiamine* (Thiamine*) 100 Mg Tablet, 100 MG PO DAILY, TAB 10/27/17 Rifaximin* (Xifaxan*) 550 Mg Tablet, 550 MG PO BID, TAB 10/27/17 Midodrine* (Midodrine*) 10 Mg Tablet, 10 MG PO TID, TAB 10/27/17 Allergies Allergies: Coded Allergies: No Known Allergy (Unverified , 08/13/18) PMhx/Soc History of Surgery: No Anesthesia Reaction: No Hx Neurological Disorder: No Hx Respiratory Disorders: No Hx Cardiac Disorders: No Hx Psychiatric Problems: No Hx Miscellaneous Medical Probl: No (alcohol abuse; liver cirrhosis) Hx Alcohol Use: Yes (FORMER) Hx Substance Use: No Hx Tobacco Use: No FmHx Family History: No diabetes Physical Exam Vitals Vital Signs Date Temp Pulse Resp B/P (MAP) Pulse Ox O2 O2 Flow FiO2 Time Delivery Rate 08/29/18 97.9 79 18 146/90 98 08:38 (108) Physical Exam General: Well developed, well nourished, no acute distress Head: Normocephalic, atraumatic. Eyes: EOM intact ENT: Moist mucous membranes Neck: Full ROM Respiratory: No respiratory distress Cardiovascular: Well perfused distally Abdominal: Protuberant with fluid wave, nontender : Deferred MSK: No edema, no unilateral swelling, 5/5 strength Neurologic: Alert and oriented, moving all extremities, normal speech, steady gait Skin: No rash Psych: Normal mood Procedures/MDM EKG, MONITORS, & DIAGNOSTIC IMAGING: Patient left prior to paracentesis LAB INTERPRETATION: No significant coagulopathy noted on labs that are updated within the past 30 days MEDICAL DECISION MAKING: The patient presents with abdominal ascites likely secondary to cirrhosis. Patient does not exhibit any signs or symptoms concerning for complications of cirrhosis such as GI bleed, hepatic encephalopathy or spontaneous bacterial peritonitis. There is no indication currently for diagnostic paracentesis. The patient is ambulatory and disruptive throughout the emergency room. When he was asked to go back to his room the patient was upset and stating that we were not caring for him. He was advised that his paracentesis has been ordered. At this point the patient states that he has "things to do ". The patient walked out of the emergency room prior to completion of his workup and paracentesis. The patient's frequency of visits are concerning for malingering. The patient's ascites seems to be not clinically significant at this time. I do not believe that the patient's frequency of visits represent worsening cirrhosis or liver d isease. They are more likely reflection of the patient's malingering status. He had no clinical signs or symptoms of emergent medical condition and he walked out of the emergency room without receiving his discharge paperwork. DISPOSITION PLAN: Patient walked out of the emergency room prior to completion of workup. Departure Diagnosis: Primary Impression: Alcoholic cirrhosis of liver with ascites Additional Impression: Malingering Condition: Stable JOZEF CARLIN MD Aug 29, 2018 09:11
== END | disposition left against medical advice (07) ==
LOC: E/R 08:35
DX: K70.31 Alcoholic cirrhosis of liver with ascites (principal); Z76.5 Malingerer [conscious simulation]
CPT/HCPCS: 99282

== ENCOUNTER 2018-08-30 11:59 | Emergency (ER) | payer SELFPAY ==
[~2018-08-30] VITALS: Ht 170.2 cm; Wt 76.1 kg
[2018-08-30 12:00] VITALS: BP 162/114; PULSE 104; RESP 17; Ht 170.2 cm; Wt 76.1 kg
== END 2018-08-30 13:30 | disposition left against medical advice (07) ==
LOC: E/R 11:59
DX: Z53.21 Procedure and treatment not carried out due to patient leaving prior to being seen by health care provider (principal)

== ENCOUNTER 2018-09-01 04:41 | Emergency (ER) | payer MEDICAID ==
[~2018-09-01] VITALS: Ht 172.7 cm; Wt 76.0 kg
[2018-09-01 04:42] VITALS: Ht 172.7 cm; Wt 76.0 kg
--- NOTE | 2018-09-01 05:25 | ERD ---
ER Documentation Chief Complaint Chief Complaint AP; HX OF CIRRHOSIS, PARACENTESIS HPI This is a 43-year-old male with abdominal pain history of cirrhosis. Patient has history of multiple episodes of paracentesis. Secondary to cirrhosis. Denies any fevers or chills. Denies any other current complaints. ROS All systems reviewed and are negative except as per history of present illness. Medications Home Meds Reported Medications Melatonin (Melatonin) 10 Mg Capsule, 10 MG PO HS, CAP 07/14/18 Lactulose* (Lactulose*) 20 Gm/30 Ml Solution, 20 GM PO BID PRN for CONSTIPATION, ML 07/14/18 Spironolactone* (Spironolactone*) 100 Mg Tablet, 100 MG PO DAILY, TAB 06/18/18 Furosemide* (Furosemide*) 40 Mg Tablet, 40 MG PO DAILY, TAB 06/18/18 Esomeprazole Mag Trihydrate (Nexium) 40 Mg Capsule.dr, 40 MG PO DAILY, #30 CAP 02/22/18 Folic Acid/Vitamin B Comp W-C (Renal Multivitamin Tablet) 0.8 Mg Tablet, 0.8 MG PO DAILY, TAB 02/08/18 Thiamine* (Thiamine*) 100 Mg Tablet, 100 MG PO DAILY, TAB 10/27/17 Rifaximin* (Xifaxan*) 550 Mg Tablet, 550 MG PO BID, TAB 10/27/17 Midodrine* (Midodrine*) 10 Mg Tablet, 10 MG PO TID, TAB 10/27/17 Allergies Allergies: Coded Allergies: No Known Allergy (Unverified , 08/13/18) PMhx/Soc History of Surgery: No Anesthesia Reaction: No Hx Neurological Disorder: No Hx Respiratory Disorders: No Hx Cardiac Disorders: No Hx Psychiatric Problems: No Hx Miscellaneous Medical Probl: No (alcohol abuse; liver cirrhosis) Hx Alcohol Use: Yes (FORMER) Hx Substance Use: No Hx Tobacco Use: No Physical Exam Vitals Vital Signs Date Temp Pulse Resp B/P (MAP) Pulse Ox O2 O2 Flow FiO2 Time Delivery Rate 09/01/18 97.8 90 18 153/91 98 04:42 (111) Physical Exam Const: No acute distress Head: Atraumatic Eyes: Normal Conjunctiva ENT: Normal External Ears, Nose and Mouth. Neck: Full range of motion. No meningismus. Resp: Clear to auscultation bilaterally Cardio: Regular rate and rhythm, no murmurs Abd: Soft, non tender, non distended. Normal bowel sounds Skin: No petechiae or rashes Back: No midline or flank tenderness Ext: No cyanosis, or edema Neur: Awake and alert Psych: Normal Mood and Affect Results 24 hrs Laboratory Tests Test 09/01/18 05:17 White Blood Count Pending Red Blood Count Pending Hemoglobin Pending Hematocrit Pending Mean Corpuscular Volume Pending Mean Corpuscular Hemoglobin Pending Mean Corpuscular Hemoglobin Concent Pending Red Cell Distribution Width Pending Platelet Count Pending Mean Platelet Volume Pending Procedures/MDM Medical decision making: This is a patient has relatively severe ascites and needed paracentesis. At this point patient is awaiting ultrasound-guided paracentesis is stable for outpatient management once his paracentesis is done. Follow-up with primary care physician. Return for any worsening symptoms or any fevers chills nausea vomiting. Departure Diagnosis: Primary Impression: Ascites Ascites type: due to alcoholic cirrhosis Qualified Codes: K70.31 - Alcoholic cirrhosis of liver with ascites Condition: Stable JAYLAN BUCKNER Sep 01, 2018 05:25
--- NOTE | 2018-09-01 08:08 | QN ---
Documentation Comment Patient decided that he wanted to leave and not wait for interventional ra diology to perform his paracentesis. He was instructed to return for paracentesis after 8 AM in the future so that he does not have to wait hours for his paracentesis. MARILUZ DOHERTY MD Sep 01, 2018 08:08
== END 2018-09-01 08:12 | disposition left against medical advice (07) ==
LOC: E/R 04:41
DX: K70.31 Alcoholic cirrhosis of liver with ascites (principal)
CPT/HCPCS: 36415; 80053; 83690; 85025; 85610; 85730; Z7502; 99283

== ENCOUNTER 2018-09-01 08:21 | Emergency (ER) | payer MEDICAID ==
[~2018-09-01] VITALS: Ht 167.6 cm; Wt 75.0 kg
[2018-09-01 08:28] VITALS: Ht 167.6 cm; Wt 75.0 kg
--- NOTE | 2018-09-01 09:03 | ERD ---
ER Documentation Chief Complaint Chief Complaint Complains of abdominal pain Hx of Ascites HPI Patient is a 43-year-old male with ascites who presents for paracentesis. He was here earlier for paracentesis but did not want to wait so went home and came back. He is asking if Dr. Martini is available to do his paracentesis because he does not want to wait. Upon review of old medical records the patient has multiple visits to the ER for similar complaints. He is well-known to myself and to our staff. He does have a care plan in the emergency department information exchange system. ROS All systems reviewed and are negative except as per history of present illness. Medications Home Meds Reported Medications Melatonin (Melatonin) 10 Mg Capsule, 10 MG PO HS, CAP 07/14/18 Lactulose* (Lactulose*) 20 Gm/30 Ml Solution, 20 GM PO BID PRN for CONSTIPATION, ML 07/14/18 Spironolactone* (Spironolactone*) 100 Mg Tablet, 100 MG PO DAILY, TAB 06/18/18 Furosemide* (Furosemide*) 40 Mg Tablet, 40 MG PO DAILY, TAB 06/18/18 Esomeprazole Mag Trihydrate (Nexium) 40 Mg Capsule.dr, 40 MG PO DAILY, #30 CAP 02/22/18 Folic Acid/Vitamin B Comp W-C (Renal Multivitamin Tablet) 0.8 Mg Tablet, 0.8 MG PO DAILY, TAB 02/08/18 Thiamine* (Thiamine*) 100 Mg Tablet, 100 MG PO DAILY, TAB 10/27/17 Rifaximin* (Xifaxan*) 550 Mg Tablet, 550 MG PO BID, TAB 10/27/17 Midodrine* (Midodrine*) 10 Mg Tablet, 10 MG PO TID, TAB 10/27/17 Allergies Allergies: Coded Allergies: No Known Allergy (Unverified , 09/01/18) PMhx/Soc History of Surgery: No Anesthesia Reaction: No Hx Neurological Disorder: No Hx Respiratory Disorders: No Hx Cardiac Disorders: No Hx Psychiatric Problems: No Hx Miscellaneous Medical Probl: No (alcohol abuse; liver cirrhosis) Hx Alcohol Use: Yes (FORMER) Hx Substance Use: No Hx Tobacco Use: No FmHx Family History: No diabetes Physical Exam Vitals Vital Signs Date Temp Pulse Resp B/P (MAP) Pulse Ox O2 O2 Flow FiO2 Time Delivery Rate 09/01/18 98.7 108 20 157/82 95 08:28 (107) Physical Exam Const: No acute distress Head: Atraumatic Eyes: Normal Conjunctiva ENT: Normal External Ears, Nose and Mouth. Neck: Full range of motion. No meningismus. Resp: Clear to auscultation bilaterally Cardio: Regular rate and rhythm, no murmurs Abd: Soft, abdominal distention Skin: No petechiae or rashes Back: No midline or flank tenderness Ext: No cyanosis, or edema Neur: Awake and alert Psych: Normal Mood and Affect Procedures/MDM Patient is a 43-year-old male who presents with acute ascites. He does not want to wait for his paracentesis because it is going to be approximately 1 hour as they are doing a procedure currently. He can return for any worsening symptoms. I doubt spontaneous bacterial peritonitis. Andrea from case management is come to talk to him to try to arrange for outpatient paracentesis but he was not willing to listen to this option. Departure Diagnosis: Primary Impression: Ascites Ascites type: other type Qualified Codes: R18.8 - Other ascites Condition: Fair Patient Instructions: Ascites Referrals: [facility] YOU HAVE RECEIVED A MEDICAL SCREENING EXAM AND THE RESULTS INDICATE THAT YOU DO NOT HAVE A CONDITION THAT REQUIRES URGENT TREATMENT IN THE EMERGENCY DEPARTMENT. FURTHER EVALUATION AND TREATMENT OF YOUR CONDITION CAN WAIT UNTIL YOU ARE SEEN IN YOUR DOCTORS OFFICE WITHIN THE NEXT 1-2 DAYS. IT IS YOUR RESPONSIBILITY TO MAKE AN APPOINTMENT FOR FOLOW-UP CARE. IF YOU HAVE A PRIMARY DOCTOR --you should call your primary doctor and schedule an appointment IF YOU DO NOT HAVE A PRIMARY DOCTOR YOU CAN CALL OUR PHYSICIAN REFERRAL HOTLINE AT IF YOU CAN NOT AFFORD TO SEE A PHYSICIAN YOU CAN CHOSE FROM THE FOLLOWING [facility] [address] [facility]. [facility] [address] [facility]. [facility] [address] [facility]. [facility] [address] [facility]. [facility] [address] [facility]. [facility]. [address] Additional Instructions: Call your primary care doctor TOMORROW for an appointment during the next 1 WEEK.Tell the church secretary that you were referred from this facility.See the doctor sooner or return here if your condition worsens before your appointment time. MARILUZ DOHERTY MD Sep 01, 2018 09:03
== END 2018-09-01 09:39 | disposition left against medical advice (07) ==
LOC: E/R 08:21
DX: R18.8 Other ascites (principal)
CPT/HCPCS: 99282

== ENCOUNTER 2018-09-03 23:51 | Emergency (ER) | payer SELFPAY ==
[~2018-09-03] VITALS: Wt 70.5 kg
[2018-09-04] VITALS: BP 148/90; PULSE 88; RESP 18
== END 2018-09-04 00:46 | disposition left against medical advice (07) ==
LOC: FTE 23:51
DX: Z53.21 Procedure and treatment not carried out due to patient leaving prior to being seen by health care provider (principal)

== ENCOUNTER 2018-09-08 08:32 | Emergency (ER) | payer MEDICAID ==
[~2018-09-08] VITALS: Ht 167.6 cm; Wt 72.3 kg
[2018-09-08 08:40] VITALS: Ht 167.6 cm; Wt 72.3 kg
[2018-09-08 11:25] VITALS: BP 136/77; PULSE 83; RESP 20
[2018-09-08] MEDS ORDERED: LIDOCAINE 1% (MPF) 5 ML VIAL ONE (11:41)
[2018-09-08 12:00] VITALS: BP 132/83; PULSE 84; RESP 18
[2018-09-08 12:11] VITALS: BP 152/79; PULSE 91; RESP 20
--- NOTE | 2018-09-08 14:01 | ERD ---
ER Documentation Chief Complaint Chief Complaint Complains of abdominal pain Hx of ascites HPI Patient is a 43-year-old male with ascites who presents for paracentesis. He has no fevers. He says that he just needs his paracentesis. Upon review of old medical records the patient has multiple visits for similar complaints. He is well-known to myself and to our staff. ROS All systems reviewed and are negative except as per history of present illness. Medications Home Meds Reported Medications Melatonin (Melatonin) 10 Mg Capsule, 10 MG PO HS, CAP 07/14/18 Lactulose* (Lactulose*) 20 Gm/30 Ml Solution, 20 GM PO BID PRN for CONSTIPATION, ML 07/14/18 Spironolactone* (Spironolactone*) 100 Mg Tablet, 100 MG PO DAILY, TAB 06/18/18 Furosemide* (Furosemide*) 40 Mg Tablet, 40 MG PO DAILY, TAB 06/18/18 Esomeprazole Mag Trihydrate (Nexium) 40 Mg Capsule.dr, 40 MG PO DAILY, #30 CAP 02/22/18 Folic Acid/Vitamin B Comp W-C (Renal Multivitamin Tablet) 0.8 Mg Tablet, 0.8 MG PO DAILY, TAB 02/08/18 Thiamine* (Thiamine*) 100 Mg Tablet, 100 MG PO DAILY, TAB 10/27/17 Rifaximin* (Xifaxan*) 550 Mg Tablet, 550 MG PO BID, TAB 10/27/17 Midodrine* (Midodrine*) 10 Mg Tablet, 10 MG PO TID, TAB 10/27/17 Allergies Allergies: Coded Allergies: No Known Allergy (Unverified , 09/01/18) PMhx/Soc Medical and Surgical Hx: pt denies Medical Hx, pt denies Surgical Hx History of Surgery: No Anesthesia Reaction: No Hx Neurological Disorder: No Hx Respiratory Disorders: No Hx Cardiac Disorders: No Hx Psychiatric Problems: No Hx Miscellaneous Medical Probl: No (alcohol abuse; liver cirrhosis) Hx Alcohol Use: Yes (FORMER) Hx Substance Use: No Hx Tobacco Use: No Smoking Status: Unknown if ever smoked FmHx Family History: No diabetes Physical Exam Vitals Vital Signs Date Temp Pulse Resp B/P (MAP) Pulse Ox O2 O2 Flow FiO2 Time Delivery Rate 09/08/18 91 20 152/79 98 Room Air 12:11 (103) 09/08/18 84 18 132/83 99 Room Air 12:00 (99) 09/08/18 83 20 136/77 97 Room Air 11:25 (96) 09/08/18 97.3 84 20 150/88 96 08:40 (108) Physical Exam Const: No acute distress Head: Atraumatic Eyes: Normal Conjunctiva ENT: Normal External Ears, Nose and Mouth. Neck: Full range of motion. No meningismus. Resp: Clear to auscultation bilaterally Cardio: Regular rate and rhythm, no murmurs Abd: Abdominal distention with positive fluid wave Skin: No petechiae or rashes Back: No midline or flank tenderness Ext: No cyanosis, or edema Neur: Awake and alert Psych: Normal Mood and Affect Results 24 hrs Current Medications Medications Dose Sig/Ivan Start Time Status Last (Trade) Ordered Route PRN Stop Time Admin Dose Reason Admin Lidocaine 5 ml STK-MED 09/08/18 DC 09/08/18 (Xylocaine ONCE .ROUTE 11:41 11:59 1% (Mpf)) 09/08/18 11:42 Procedures/MDM Ultrasound-guided paracentesis performed by radiology. Doubt spontaneous bacterial peritonitis. Departure Diagnosis: Primary Impression: Ascites Ascites type: other type Qualified Codes: R18.8 - Other ascites Condition: Stable Patient Instructions: Ascites Referrals: [facility] YOU HAVE RECEIVED A MEDICAL SCREENING EXAM AND THE RESULTS INDICATE THAT YOU DO NOT HAVE A CONDITION THAT REQUIRES URGENT TREATMENT IN THE EMERGENCY DEPARTMENT. FURTHER EVALUATION AND TREATMENT OF YOUR CONDITION CAN WAIT UNTIL YOU ARE SEEN IN YOUR DOCTORS OFFICE WITHIN THE NEXT 1-2 DAYS. IT IS YOUR RESPONSIBILITY TO MAKE AN APPOINTMENT FOR FOLOW-UP CARE. IF YOU HAVE A PRIMARY DOCTOR --you should call your primary doctor and schedule an appointment IF YOU DO NOT HAVE A PRIMARY DOCTOR YOU CAN CALL OUR PHYSICIAN REFERRAL HOTLINE AT IF YOU CAN NOT AFFORD TO SEE A PHYSICIAN YOU CAN CHOSE FROM THE FOLLOWING [facility] [address] [facility] [address] [facility] [address] [facility] [address] [facility] [address] [facility]. [facility] [address] Additional Instructions: Call your primary care doctor TOMORROW for an appointment during the next 1 WEEK.Tell the city secretary that you were referred from this facility.See the doctor sooner or return here if your condition worsens before your appointment time. MARILUZ DOHERTY MD Sep 08, 2018 14:01
== END 2018-09-08 12:13 | disposition home or self-care (01) ==
LOC: E/R 08:32
DX: R18.8 Other ascites (principal)
CPT/HCPCS: Z7502; Z7610

== ENCOUNTER 2018-09-14 11:07 | Emergency (ER) | payer MEDICAID ==
[~2018-09-14] VITALS: Ht 172.7 cm; Wt 75.5 kg
[2018-09-14 11:11] VITALS: Ht 172.7 cm; Wt 75.5 kg
[2018-09-14] MEDS ORDERED: LIDOCAINE 1% (MPF) 5 ML VIAL ONE (14:07)
--- NOTE | 2018-09-14 14:16 | ERD ---
ER Documentation Chief Complaint Chief Complaint here for paracentesis HPI 43-year-old male well-known to the emergency room for paracentesis. The patient presents requesting paracentesis. He denies any fevers chills chest pain or shortness of breath. He denies abdominal pain hematemesis or melena. ROS All systems reviewed and are negative except as per history of present illness. Medications Home Meds Reported Medications Melatonin (Melatonin) 10 Mg Capsule, 10 MG PO HS, CAP 07/14/18 Lactulose* (Lactulose*) 20 Gm/30 Ml Solution, 20 GM PO BID PRN for CONSTIPATION, ML 07/14/18 Spironolactone* (Spironolactone*) 100 Mg Tablet, 100 MG PO DAILY, TAB 06/18/18 Furosemide* (Furosemide*) 40 Mg Tablet, 40 MG PO DAILY, TAB 06/18/18 Esomeprazole Mag Trihydrate (Nexium) 40 Mg Capsule.dr, 40 MG PO DAILY, #30 CAP 02/22/18 Folic Acid/Vitamin B Comp W-C (Renal Multivitamin Tablet) 0.8 Mg Tablet, 0.8 MG PO DAILY, TAB 02/08/18 Thiamine* (Thiamine*) 100 Mg Tablet, 100 MG PO DAILY, TAB 10/27/17 Rifaximin* (Xifaxan*) 550 Mg Tablet, 550 MG PO BID, TAB 10/27/17 Midodrine* (Midodrine*) 10 Mg Tablet, 10 MG PO TID, TAB 10/27/17 Allergies Allergies: Coded Allergies: No Known Allergy (Unverified , 09/14/18) PMhx/Soc History of Surgery: No Anesthesia Reaction: No Hx Neurological Disorder: No Hx Respiratory Disorders: No Hx Cardiac Disorders: No Hx Psychiatric Problems: No Hx Miscellaneous Medical Probl: No (alcohol abuse; liver cirrhosis) Hx Alcohol Use: Yes (FORMER) Hx Substance Use: No Hx Tobacco Use: No Smoking Status: Never smoker FmHx Family History: No diabetes Physical Exam Vitals Vital Signs Date Temp Pulse Resp B/P (MAP) Pulse Ox O2 O2 Flow FiO2 Time Delivery Rate 09/14/18 76 16 144/95 100 Room Air 13:00 (111) 09/14/18 98.3 89 18 163/104 97 11:11 (123) Physical Exam General: Well developed, well nourished, no acute distress Head: Normocephalic, atraumatic. Eyes: EOM intact ENT: Moist mucous membranes Neck: Full ROM Respiratory: No respiratory distress Cardiovascular: Well perfused distally Abdominal: Protuberant with fluid wave, nontender, no peritonitis : Deferred MSK: No edema, no unilateral swelling, 5/5 strength Neurologic: Alert and oriented, moving all extremities, normal speech, steady gait Skin: No rash Psych: Normal mood Results 24 hrs Current Medications Medications Dose Sig/Ivan Start Time Status Last (Trade) Ordered Route PRN Stop Time Admin Dose Reason Admin Lidocaine 5 ml STK-MED 09/14/18 DC 09/14/18 (Xylocaine ONCE .ROUTE 14:07 14:33 1% (Mpf)) 09/14/18 14:08 Procedures/MDM EKG, MONITORS, & DIAGNOSTIC IMAGING: Therapeutic paracentesis performed by interventional radiology. LAB INTERPRETATION: No significant coagulopathy noted on blood work within the past 30 days MEDICAL DECISION MAKING: The patient presents with abdominal ascites likely secondary to cirrhosis. Patient does not exhibit any signs or symptoms concerning for complications of cirrhosis such as GI bleed, hepatic encephalopathy or spontaneous bacterial peritonitis. There is no indication currently for diagnostic paracentesis. The patient will benefit from therapeutic paracentesis by interventional radiology. If the patient remains stable without evidence of hemodynamic compromise or post-paracentesis circulatory dysfunction secondary to fluid shifts the patient can be safely discharged home with close primary care and hepatology follow-up. ER COURSE: The patient had successful therapeutic paracentesis limited to 5L. The patient remained hemodynamically stable and otherwise well-appearing. The patient is safe for discharge home. No indication for albumin infusion at this time. I kept the patient and/or family informed of laboratory and diagnostic imaging results throughout the emergency room course. DISPOSITION PLAN: We discussed follow up with the patient's primary care doctor within 24 to 48 hours as needed. We also discussed return to the emergency room for worsening symptoms or worsening condition. Discharge Medications: None Departure Diagnosis: Primary Impression: Alcoholic cirrhosis of liver with ascites Condition: JOZEF Allen MD Sep 14, 2018 14:15
[2018-09-14 15:07] VITALS: BP 140/89; PULSE 73; RESP 16
== END 2018-09-14 15:11 | disposition home or self-care (01) ==
LOC: E/R 11:07
DX: K70.31 Alcoholic cirrhosis of liver with ascites (principal)
CPT/HCPCS: Z7502; Z7610

== ENCOUNTER 2018-09-21 07:47 | Emergency (ER) | payer MEDICAID ==
[~2018-09-21] VITALS: Wt 75.0 kg
[2018-09-21 07:49] VITALS: BP 138/85; PULSE 98; RESP 18
--- NOTE | 2018-09-21 08:00 | ERD ---
ER Documentation Chief Complaint Chief Complaint abd pain and swelling needs paracenthesis HPI 42-year-old male with a history of alcoholic alcoholic liver cirrhosis, ascites and frequent paracenteses, well-known to this ED presents to the ED complaining of abdominal distention requiring a paracentesis. Denies abdominal pain, nausea, vomiting, diarrhea, constipation, hematemesis, hematochezia or melanotic stools. No shortness of breath or cough. Denies leg pain or swelling. No fevers or chills. ROS All systems reviewed and are negative except as per history of present illness. Medications Home Meds Reported Medications Melatonin (Melatonin) 10 Mg Capsule, 10 MG PO HS, CAP 07/14/18 Lactulose* (Lactulose*) 20 Gm/30 Ml Solution, 20 GM PO BID PRN for CONSTIPATION, ML 07/14/18 Spironolactone* (Spironolactone*) 100 Mg Tablet, 100 MG PO DAILY, TAB 06/18/18 Furosemide* (Furosemide*) 40 Mg Tablet, 40 MG PO DAILY, TAB 06/18/18 Esomeprazole Mag Trihydrate (Nexium) 40 Mg Capsule.dr, 40 MG PO DAILY, #30 CAP 02/22/18 Folic Acid/Vitamin B Comp W-C (Renal Multivitamin Tablet) 0.8 Mg Tablet, 0.8 MG PO DAILY, TAB 02/08/18 Thiamine* (Thiamine*) 100 Mg Tablet, 100 MG PO DAILY, TAB 10/27/17 Rifaximin* (Xifaxan*) 550 Mg Tablet, 550 MG PO BID, TAB 10/27/17 Midodrine* (Midodrine*) 10 Mg Tablet, 10 MG PO TID, TAB 10/27/17 Allergies Allergies: Coded Allergies: No Known Allergy (Unverified , 09/14/18) PMhx/Soc History of Surgery: No Anesthesia Reaction: No Hx Neurological Disorder: No Hx Respiratory Disorders: No Hx Cardiac Disorders: No Hx Psychiatric Problems: No Hx Miscellaneous Medical Probl: No (alcohol abuse; liver cirrhosis) Hx Alcohol Use: Yes (FORMER) Hx Substance Use: No Hx Tobacco Use: No Physical Exam Vitals Vital Signs Date Temp Pulse Resp B/P (MAP) Pulse Ox O2 O2 Flow FiO2 Time Delivery Rate 09/21/18 98.6 98 18 138/85 98 07:49 (102) Physical Exam Const: No acute distress Head: Atraumatic Eyes: Normal Conjunctiva ENT: Normal External Ears, Nose and Mouth. Neck: Full range of motion. No meningismus. Resp: Clear to auscultation bilaterally Cardio: Regular rate and rhythm, no murmurs Abd: Distended. Nontender. Positive fluid wave. Skin: No petechiae or rashes Back: No midline or flank tenderness Ext: No cyanosis, or edema Neur: Awake and alert Psych: Normal Mood and Affect Results 24 hrs Current Medications Medications Dose Sig/Ivan Start Time Status Last (Trade) Ordered Route PRN Stop Time Admin Dose Reason Admin Lidocaine 5 ml STK-MED 09/21/18 DC 09/21/18 (Xylocaine ONCE .ROUTE 14:48 14:49 1% (Mpf)) 09/21/18 14:49 Procedures/MDM DOCUMENTS REVIEWED: ED nurse, prior ED, prior records ED COURSE: Ultrasound-guided paracentesis by IR. PROCEDURE: Ultrasound guided paracentesis CLINICAL INDICATION: Ascites TECHNIQUE: The risks benefits and alternatives of the procedure were explained to the patient. Informed written consent was obtained. A time out was performed. The patient understood the risks benefits and alternatives and wished to proceed with the procedure. COMPARISON: None available FINDINGS: A time out was performed. The overlying skin of the right lower quadrant of the abdomen was prepped and draped in the usual sterile fashion. Approximately 10 cc of lidocaine was injected locally for pain control. Utilizing ultrasound guidance, a skinny 5-Slovak Yueh catheter was placed into the peritoneal cavity without difficulty. The patient tolerated the procedure well without complication. Approximately 5000 cc of clear yellow fluid was obtained. The fluid was not sent to the lab for further analysis. IMPRESSION: 1. Successful ultrasound-guided paracentesis. RPTAT: QQ Physician Saleem Date Time Electronically viewed and signed by Physician Saleem on 09/21/2018 14:39 REEXAMINATION/REEVALUATION: Time: 11:53. Doing well. Symptomatically improved. No hypotension. MEDICAL DECISION MAKIN-year-old male with a history of alcoholic alcoholic liver cirrhosis, ascites and frequent paracenteses, well-known to this ED presents to the ED complaining of abdominal distention requiring a paracentesis. Ultrasound-guided paracentesis performed by interventional radiology and 5 liters removed. Patient feels significantly better. No hypotension. No fever, abdominal tenderness or other signs of an acute intra-abdominal process including spontaneous bacterial peritonitis. Eloped prior to discharge at 12:02. Departure Diagnosis: Primary Impression: Abdominal distention Additional Impression: Alcoholic cirrhosis of liver with ascites Condition: Stable KATELYNN CRESPO MD Sep 21, 2018 08:00
[2018-09-21] MEDS ORDERED: LIDOCAINE 1% (MPF) 5 ML VIAL ONE (14:48)
== END 2018-09-21 12:33 | disposition left against medical advice (07) ==
LOC: E/R 07:47
DX: K70.31 Alcoholic cirrhosis of liver with ascites (principal)
CPT/HCPCS: Z7502; Z7610

== ENCOUNTER 2018-09-28 10:05 | Emergency (ER) | payer MEDICAID ==
[~2018-09-28] VITALS: Ht 167.6 cm; Wt 77.5 kg
[2018-09-28 10:12] VITALS: Ht 167.6 cm; Wt 77.5 kg
--- NOTE | 2018-09-28 10:18 | ERD ---
ER Documentation Chief Complaint Chief Complaint Patient here for paracentesis Hc of Ascites HPI This is a 42-year-old male with a past medical history of alcoholic cirrhosis and ascites requiring frequent paracenteses is presenting for a desire for paracentesis. The patient notes that he requires a paracentesis approximately once a week. He last completed a paracentesis 6 days ago here. The patient endorses abdominal distention related to ascites. The patient denies any shortness of breath. He does not endorse any abdominal pain. He denies any constipation or diarrhea. He denies any black or bloody or tarry stools. He denies any flank pain. He denies any dysuria or hematuria or urgency or frequency. The patient denies feeling weak or fatigued. The patient denies lightheadedness or dizziness. He denies feeling sick. He denies any fever or chills. The patient has had no headache or vision changes. The patient does not endorse neck or back pain. The patient has had no chest pain or trouble breathing. The patient denies nausea or vomiting. The patient has had no focal deficits. The patient has had no weakness or numbness or tingling to the face or extremities. ROS All systems reviewed and are negative except as per history of present illness. Medications Home Meds Reported Medications Melatonin (Melatonin) 10 Mg Capsule, 10 MG PO HS, CAP 07/14/18 Lactulose* (Lactulose*) 20 Gm/30 Ml Solution, 20 GM PO BID PRN for CONSTIPATION, ML 07/14/18 Spironolactone* (Spironolactone*) 100 Mg Tablet, 100 MG PO DAILY, TAB 06/18/18 Furosemide* (Furosemide*) 40 Mg Tablet, 40 MG PO DAILY, TAB 06/18/18 Esomeprazole Mag Trihydrate (Nexium) 40 Mg Capsule.dr, 40 MG PO DAILY, #30 CAP 02/22/18 Folic Acid/Vitamin B Comp W-C (Renal Multivitamin Tablet) 0.8 Mg Tablet, 0.8 MG PO DAILY, TAB 02/08/18 Thiamine* (Thiamine*) 100 Mg Tablet, 100 MG PO DAILY, TAB 10/27/17 Rifaximin* (Xifaxan*) 550 Mg Tablet, 550 MG PO BID, TAB 10/27/17 Midodrine* (Midodrine*) 10 Mg Tablet, 10 MG PO TID, TAB 10/27/17 Allergies Allergies: Coded Allergies: No Known Allergy (Unverified , 09/14/18) PMhx/Soc History of Surgery: No Anesthesia Reaction: No Hx Neurological Disorder: No Hx Respiratory Disorders: No Hx Cardiac Disorders: No Hx Psychiatric Problems: No Hx Miscellaneous Medical Probl: Yes (liver cirrhosis with ascites) Hx Alcohol Use: Yes (FORMER) Hx Substance Use: No Hx Tobacco Use: No FmHx Family History: No diabetes Physical Exam Vitals Vital Signs Date Temp Pulse Resp B/P (MAP) Pulse Ox O2 O2 Flow FiO2 Time Delivery Rate 09/28/18 97.7 76 20 130/84 95 10:12 (99) Physical Exam Const: No acute distress Head: Atraumatic Eyes: Normal Conjunctiva ENT: Normal External Ears, Nose and Mouth. Neck: Full range of motion. No meningismus. Resp: Clear to auscultation bilaterally Cardio: Regular rate and rhythm, no murmurs Abd: Soft, non tender. Abdominal distention with ascites. Normal bowel sounds Skin: No petechiae or rashes Back: No midline or flank tenderness Ext: No cyanosis, or edema Neur: Awake and alert Psych: Normal Mood and Affect Results 24 hrs Current Medications Medications Dose Sig/Ivan Start Time Status Last (Trade) Ordered Route PRN Stop Time Admin Dose Reason Admin Lidocaine 5 ml STK-MED 09/28/18 DC (Xylocaine ONCE .ROUTE 11:19 1% (Mpf)) 09/28/18 11:20 Procedures/MDM MDM The patient's presentation warrants further investigation. Previous medical records, if available, were reviewed. LABS No significant coagulopathy noted on blood test within the past 30 days no indication for repeat based on her process TREATMENT/DISPOSITION The patient presents with abdominal ascites likely secondary to cirrhosis. Patient does not exhibit any signs or symptoms concerning for complications of cirrhosis such as GI bleed, hepatic encephalopathy or spontaneous bacterial peritonitis. There is no indication currently for diagnostic paracentesis. The patient will benefit from therapeutic paracentesis by interventional radiology. This was completed without complication, limited to 5 L. The patient was observed in the emergency department without evidence of hemodynamic compromise or post-paracentesis circulatory dysfunction secondary to fluid shifts. The patient can be safely discharged home with close primary care and hepatology follow-up. DISCHARGE Upon reevaluation of the patient, symptoms have improved. No emergent diagnoses were identified. At this time, I feel that the patient stable for discharge. The patient was instructed to follow-up with a primary care physician in 1-3 days. The patient will be given strict precautions with which to return to the emergency department. Prescriptions: None Disclaimer: Inadvertent spelling and grammatical errors are likely due to E HR/dictation software use and do not reflect on the overall quality of patient care. Note that the electronic time recorded on this note does not necessarily reflect the actual time of the patient encounter. Departure Diagnosis: Primary Impression: Alcoholic cirrhosis of liver with ascites Additional Impressions: Abdominal distention S/P abdominal paracentesis Condition: Stable Patient Instructions: Ascites, Cirrhosis of the Liver, Paracentesis YAMILE AYALA MD Sep 28, 2018 10:18
[2018-09-28] MEDS ORDERED: LIDOCAINE 1% (MPF) 5 ML VIAL ONE (11:19)
[2018-09-28 11:58] VITALS: BP 125/82; PULSE 66; RESP 20
[2018-09-28] MEDS ORDERED: FURO40TA4 PO (12:09)
[2018-09-28] MEDS ORDERED: RIFA550T4 PO (12:09)
[2018-09-28] MEDS ORDERED: ESOM40CA PO (12:10)
[2018-09-28] MEDS ORDERED: SPIR25TA PO (12:10)
[2018-09-28] MEDS ORDERED: SPIR100T4 PO (12:14)
[2018-09-28] MEDS ORDERED: LACT20SO2 PO (12:15)
[2018-09-28] MEDS ORDERED: MELA10TA PO (12:16)
[2018-09-28] MEDS ORDERED: FOLI0.8T2 PO (12:17)
[2018-09-28] MEDS ORDERED: THIA100T56 PO (12:18)
[2018-09-28] MEDS ORDERED: MIDO10TA PO (12:18)
== END 2018-09-28 12:07 | disposition home or self-care (01) ==
LOC: E/R 10:05
DX: K70.31 Alcoholic cirrhosis of liver with ascites (principal); Y84.4 Aspiration of fluid as the cause of abnormal reaction of the patient, or of later complication, without mention of misadventure at the time of the procedure
CPT/HCPCS: Z7502; Z7610

== ENCOUNTER 2018-10-04 14:35 | Emergency (ER) | payer SELFPAY ==
[~2018-10-04] VITALS: Wt 79.2 kg
[~2018-10-04 14:35] MED LIST changes: -MELA10CA PO; +MELA10TA PO; -THIA100T10 PO; +THIA100T56 PO
[2018-10-04 14:37] VITALS: BP 150/85; PULSE 85; RESP 18
== END 2018-10-04 14:53 | disposition left against medical advice (07) ==
LOC: E/R 14:35
DX: Z53.21 Procedure and treatment not carried out due to patient leaving prior to being seen by health care provider (principal)

== ENCOUNTER 2018-10-06 08:49 | Emergency (ER) | payer MEDICAID ==
[~2018-10-06] VITALS: Ht 167.6 cm; Wt 78.7 kg
[2018-10-06 08:51] VITALS: Ht 167.6 cm; Wt 78.7 kg
[2018-10-06 09:35] VITALS: BP 145/85; PULSE 85
[2018-10-06 09:58] VITALS: BP 141/88; PULSE 86
[2018-10-06] MEDS ORDERED: LIDOCAINE 1% (MPF) 5 ML VIAL ONE (10:02)
[2018-10-06 10:21] VITALS: BP 144/97; PULSE 78; RESP 18
--- NOTE | 2018-10-06 10:22 | ERD ---
ER Documentation Chief Complaint Chief Complaint abdominal distention, no distress noted HPI 43-year-old male who is requesting paracentesis. He has a known history of alcoholic related cirrhosis and ascites. Patient describes early satiety. No hematemesis, no melena. No abdominal pain or fevers or chills. ROS All systems reviewed and are negative except as per history of present illness. Medications Home Meds Reported Medications Midodrine* (Midodrine*) 10 Mg Tablet, 10 MG PO TID, TAB 09/28/18 Thiamine* (Vitamin B-1*) 100 Mg Tablet, 100 MG PO DAILY, TAB 09/28/18 Folic Acid/Vitamin B Comp W-C (Renal Multivitamin Tablet) 0.8 Mg Tablet, 0.8 MG PO DAILY, TAB 09/28/18 Melatonin (Melatonin) 10 Mg Tablet, 10 MG PO HS, TAB 09/28/18 Lactulose* (Lactulose*) 20 Gm/30 Ml Solution, 30 ML PO BID, ML 09/28/18 Spironolactone* (Spironolactone*) 100 Mg Tablet, 100 MG PO DAILY, TAB 09/28/18 Esomeprazole Mag Trihydrate (Nexium) 40 Mg Capsule.dr, 40 MG PO DAILY, #30 CAP 09/28/18 Rifaximin* (Xifaxan*) 550 Mg Tablet, 550 MG PO BID, TAB 09/28/18 Furosemide* (Furosemide*) 40 Mg Tablet, 40 MG PO DAILY, TAB 09/28/18 Allergies Allergies: Coded Allergies: No Known Allergy (Unverified , 09/28/18) PMhx/Soc History of Surgery: No Anesthesia Reaction: No Hx Neurological Disorder: No Hx Respiratory Disorders: No Hx Cardiac Disorders: No Hx Psychiatric Problems: No Hx Miscellaneous Medical Probl: Yes (liver cirrhosis with ascites) Hx Alcohol Use: Yes (FORMER) Hx Substance Use: No Hx Tobacco Use: No Smoking Status: Unknown if ever smoked FmHx Family History: No diabetes Physical Exam Vitals Vital Signs Date Temp Pulse Resp B/P (MAP) Pulse Ox O2 O2 Flow FiO2 Time Delivery Rate 10/06/18 86 141/88 09:58 (105) 10/06/18 98.0 85 145/85 09:35 (105) 10/06/18 98.7 89 18 145/88 96 08:51 (107) Physical Exam General: Well developed, well nourished, no acute distress Head: Normocephalic, atraumatic. Eyes: Pupils equally reactive, EOM intact ENT: Moist mucous membranes Neck: Supple, no lymphadenopathy Respiratory: Lungs clear bilaterally, no distress Cardiovascular: RRR, no murmurs, rubs, or gallops Abdominal: Soft, positive fluid wave without rebound or guarding : Deferred MSK: No edema, no unilateral swelling, 5/5 strength Neurologic: Alert and oriented, moving all extremities, normal speech, no focal weakness, no cerebellar signs Skin: No rash Psych: Normal mood Result Diagram: 10/06/1891210/06/1813 Results 24 hrs Laboratory Tests Test 10/06/18 09:12 10/06/18 09:13 Prothrombin Time 13.9 Sec Prothrombin Time Ratio 1.1 INR International Normalized Ratio 1.06 Activated Partial Thromboplast Time 34.7 Sec White Blood Count 4.9 10^3/ul Red Blood Count 3.71 10^6/ul Hemoglobin 12.1 g/dl Hematocrit 35.7 % Mean Corpuscular Volume 96.2 fl Mean Corpuscular Hemoglobin 32.6 pg Mean Corpuscular Hemoglobin Concent 33.9 g/dl Red Cell Distribution Width 13.6 % Platelet Count 84 10^3/UL Mean Platelet Volume 9.7 fl Immature Granulocytes % 0.400 % Neutrophils % 55.8 % Lymphocytes % 28.8 % Monocytes % 11.1 % Eosinophils % 2.7 % Basophils % 1.2 % Nucleated Red Blood Cells % 0.0 /100WBC Immature Granulocytes # 0.020 10^3/ul Neutrophils # 2.7 10^3/ul Lymphocytes # 1.4 10^3/ul Monocytes # 0.5 10^3/ul Eosinophils # 0.1 10^3/ul Basophils # 0.1 10^3/ul Nucleated Red Blood Cells # 0.0 10^3/ul Sodium Level 140 mmol/L Potassium Level 4.3 mmol/L Chloride Level 103 mmol/L Carbon Dioxide Level 26 mmol/L Anion Gap 11 Blood Urea Nitrogen 17 mg/dl Creatinine 1.01 mg/dl Est Glomerular Filtrat Rate mL/min > 60 mL/min Glucose Level 98 mg/dl Calcium Level 8.2 mg/dl Total Bilirubin 1.0 mg/dl Direct Bilirubin 0.00 mg/dl Indirect Bilirubin 1.0 mg/dl Aspartate Amino Transf (AST/SGOT) 145 IU/L Alanine Aminotransferase (ALT/SGPT) 40 IU/L Alkaline Phosphatase 201 IU/L Total Protein 7.9 g/dl Albumin 3.6 g/dl Globulin 4.30 g/dl Albumin/Globulin Ratio 0.83 Current Medications Medications Dose Sig/Ivan Start Time Status Last (Trade) Ordered Route PRN Stop Time Admin Dose Reason Admin Lidocaine 5 ml STK-MED 10/06/18 DC 10/06/18 (Xylocaine ONCE .ROUTE 10:02 10/06/18 10:09 1% (Mpf)) 10:03 Procedures/MDM EKG, MONITORS, & DIAGNOSTIC IMAGING: Therapeutic paracentesis performed by interventional radiology. LAB INTERPRETATION: No significant coagulopathy noted. MEDICAL DECISION MAKING: The patient presents with abdominal ascites likely secondary to cirrhosis. Patient does not exhibit any signs or symptoms concerning for complications of cirrhosis such as GI bleed, hepatic encephalopathy or spontaneous bacterial peritonitis. There is no indication currently for diagnostic paracentesis. The patient will benefit from therapeutic paracentesis by interventional radiology. If the patient remains stable without evidence of hemodynamic compromise or post-paracentesis circulatory dysfunction secondary to fluid shifts the patient can be safely discharged home with close primary care and hepatology follow-up. ER COURSE: The patient had successful therapeutic paracentesis limited to 5L. The patient remained hemodynamically stable and otherwise well-appearing. The patient is safe for discharge home. No indication for albumin infusion at this time. I kept the patient and/or family informed of laboratory and diagnostic imaging results throughout the emergency room course. DISPOSITION PLAN: We discussed follow up with the patient's primary care doctor within 24 to 48 hours as needed. We also discussed return to the emergency room for worsening symptoms or worsening condition. Discharge Medications: None Departure Diagnosis: Primary Impression: Ascites Ascites type: due to alcoholic cirrhosis Qualified Codes: K70.31 - Alcoholic cirrhosis of liver with ascites Condition: Stable Patient Instructions: Ascites Referrals: COMMUNITY CLINICS YOU HAVE RECEIVED A MEDICAL SCREENING EXAM AND THE RESULTS INDICATE THAT YOU DO NOT HAVE A CONDITION THAT REQUIRES URGENT TREATMENT IN THE EMERGENCY DEPARTMENT. FURTHER EVALUATION AND TREATMENT OF YOUR CONDITION CAN WAIT UNTIL YOU ARE SEEN IN YOUR DOCTORS OFFICE WITHIN THE NEXT 1-2 DAYS. IT IS YOUR RESPONSIBILITY TO MAKE AN APPOINTMENT FOR FOLOW-UP CARE. IF YOU HAVE A PRIMARY DOCTOR --you should call your primary doctor and schedule an appointment IF YOU DO NOT HAVE A PRIMARY DOCTOR YOU CAN CALL OUR PHYSICIAN REFERRAL HOTLINE AT IF YOU CAN NOT AFFORD TO SEE A PHYSICIAN YOU CAN CHOSE FROM THE FOLLOWING [facility] CL[facility] [address] [facility] [address] [facility] [address] [facility] [address] [facility] [address] [facility]. [facility] [address] [facility]. [facility] YOU HAVE RECEIVED A MEDICAL SCREENING EXAM AND THE RESULTS INDICATE THAT YOU DO NOT HAVE A CONDITION THAT REQUIRES URGENT TREATMENT IN THE EMERGENCY DEPARTMENT. FURTHER EVALUATION AND TREATMENT OF YOUR CONDITION CAN WAIT UNTIL YOU ARE SEEN IN YOUR DOCTORS OFFICE WITHIN THE NEXT 1-2 DAYS. IT IS YOUR RESPONSIBILITY TO MAKE AN APPOINTMENT FOR FOLOW-UP CARE. IF YOU HAVE A PRIMARY DOCTOR --you should call your primary doctor and schedule and appointment IF YOU DO NOT HAVE A PRIMARY DOCTOR YOU CAN CALL OUR PHYSICIAN REFERRAL HOTLINE AT . IF YOU CAN NOT AFFORD TO SEE A PHYSICIAN YOU CAN CHOSE FROM THE FOLLOWING [facility]: [facility] [address] [place] [address] [facility] [address] [place] [address] [facility] [address] [place] [address] JOZEF CARLIN MD Oct 06, 2018 10:22
== END 2018-10-06 10:30 | disposition home or self-care (01) ==
LOC: E/R 08:49
DX: K70.31 Alcoholic cirrhosis of liver with ascites (principal)
CPT/HCPCS: 36415; 80053; 85025; 85610; 85730; Z7502; Z7610

== ENCOUNTER 2018-10-18 09:54 | Emergency (ER) | payer MEDICAID ==
[~2018-10-18] VITALS: Ht 170.2 cm; Wt 75.7 kg
[2018-10-18 10:04] VITALS: BP 160/99; PULSE 98; RESP 18; Ht 170.2 cm; Wt 75.7 kg
--- NOTE | 2018-10-18 10:47 | ERD ---
ER Documentation Chief Complaint Chief Complaint PT HERE FOR PARACENTESIS HPI This is a 43-year-old male who is frequently here for paracentesis. He is here for therapeutic paracentesis only he has no pain, no nausea vomiting diarrhea. She is only wants to have a therapeutic tap ROS All systems reviewed and are negative except as per history of present illness. Medications Home Meds Reported Medications Midodrine* (Midodrine*) 10 Mg Tablet, 10 MG PO TID, TAB 09/28/18 Thiamine* (Vitamin B-1*) 100 Mg Tablet, 100 MG PO DAILY, TAB 09/28/18 Folic Acid/Vitamin B Comp W-C (Renal Multivitamin Tablet) 0.8 Mg Tablet, 0.8 MG PO DAILY, TAB 09/28/18 Melatonin (Melatonin) 10 Mg Tablet, 10 MG PO HS, TAB 09/28/18 Lactulose* (Lactulose*) 20 Gm/30 Ml Solution, 30 ML PO BID, ML 09/28/18 Spironolactone* (Spironolactone*) 100 Mg Tablet, 100 MG PO DAILY, TAB 09/28/18 Esomeprazole Mag Trihydrate (Nexium) 40 Mg Capsule.dr, 40 MG PO DAILY, #30 CAP 09/28/18 Rifaximin* (Xifaxan*) 550 Mg Tablet, 550 MG PO BID, TAB 09/28/18 Furosemide* (Furosemide*) 40 Mg Tablet, 40 MG PO DAILY, TAB 09/28/18 Allergies Allergies: Coded Allergies: No Known Allergy (Unverified , 10/18/18) PMhx/Soc Medical and Surgical Hx: pt denies Surgical Hx History of Surgery: No Anesthesia Reaction: No Hx Neurological Disorder: No Hx Respiratory Disorders: No Hx Cardiac Disorders: No Hx Psychiatric Problems: No Hx Miscellaneous Medical Probl: Yes (liver cirrhosis with ascites) Hx Alcohol Use: Yes (FORMER DRINKER) Hx Substance Use: No Hx Tobacco Use: No Smoking Status: Never smoker FmHx Family History: No coronary disease Physical Exam Vitals Vital Signs Date Temp Pulse Resp B/P (MAP) Pulse Ox O2 O2 Flow FiO2 Time Delivery Rate 10/18/18 97.9 98 18 160/99 99 10:04 (119) Physical Exam Const: Well-developed, well-nourished Head: Atraumatic, normocephalic Eyes: Normal Conjunctiva, PERRLA, EOMI, normal sclera, no nystagmus ENT: Normal External Ears, Nose and Mouth, moist mucus membranes. Neck: Full range of motion. No meningismus, no lymphadenopathy. Resp: Clear to auscultation bilaterally, no wheezing, rhonchi, rales Cardio: Regular rate and rhythm, no murmurs, S1 S2 present Abd: Soft, non tender x 4, distended with ascites normal bowel sounds, no guarding or rebound, no pulsitile abdominal masses or bruits Skin: No petechiae or rashes, no ecchymosis , no maculopapular rash Back: No midline or flank tenderness Ext: No cyanosis, or edema, FROM x 4, normal inspection, neurovascularly intact x 4 Neur: Awake and alert, STR 5/5 x 4, sensation intact x 4, no focal findings, cerebellum intact Psych: Normal Mood and Affect Procedures/MDM Patient eloped from the ER before his paracentesis. He kept playing loud music on his iPhone and we told him to stop doing this and he got upset and just left Departure Diagnosis: Primary Impression: Ascites Ascites type: other type Qualified Codes: R18.8 - Other ascites Condition: Stable VLAD HOBBS DO Oct 18, 2018 10:47
== END 2018-10-18 10:45 | disposition left against medical advice (07) ==
LOC: E/R 09:54
DX: R18.8 Other ascites (principal)
CPT/HCPCS: 99282

== ENCOUNTER 2018-10-21 11:29 | Emergency (ER) | payer MEDICAID ==
[~2018-10-21] VITALS: Ht 165.1 cm; Wt 76.5 kg
[2018-10-21 11:31] VITALS: Ht 165.1 cm; Wt 76.5 kg
[2018-10-21 12:32] VITALS: BP 127/83; PULSE 106; RESP 18
[2018-10-21] MEDS ORDERED: LIDOCAINE 1% (MPF) 5 ML VIAL ONE (12:33)
[2018-10-21 13:05] VITALS: BP 132/74; PULSE 108; RESP 17
--- NOTE | 2018-10-21 13:37 | ERD ---
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 The patient's last paracentesis at our facility was on October 06, 2018. The patient's INR was 1.1 on that day as well. The patient denies any abdominal pain. He does endorse abdominal distention, bloating and discomfort. The patient denies feeling sick recently. He denies any fever or chills. The patient has had no headache or vision changes. The patient does not endorse neck or back pain. The patient denies lightheadedness or dizziness. The patient has had no chest pain or trouble breathing. The patient denies nausea or vomiting. The patient denies changes to bowel movements or urination. The patient has had no focal deficits. The patient has had no weakness or numbness or tingling to the face or extremities. ROS All systems reviewed and are negative except as per history of present illness. Medications Home Meds Reported Medications Midodrine* (Midodrine*) 10 Mg Tablet, 10 MG PO TID, TAB 09/28/18 Thiamine* (Vitamin B-1*) 100 Mg Tablet, 100 MG PO DAILY, TAB 09/28/18 Folic Acid/Vitamin B Comp W-C (Renal Multivitamin Tablet) 0.8 Mg Tablet, 0.8 MG PO DAILY, TAB 09/28/18 Melatonin (Melatonin) 10 Mg Tablet, 10 MG PO HS, TAB 09/28/18 Lactulose* (Lactulose*) 20 Gm/30 Ml Solution, 30 ML PO BID, ML 09/28/18 Spironolactone* (Spironolactone*) 100 Mg Tablet, 100 MG PO DAILY, TAB 09/28/18 Esomeprazole Mag Trihydrate (Nexium) 40 Mg Capsule.dr, 40 MG PO DAILY, #30 CAP 09/28/18 Rifaximin* (Xifaxan*) 550 Mg Tablet, 550 MG PO BID, TAB 09/28/18 Furosemide* (Furosemide*) 40 Mg Tablet, 40 MG PO DAILY, TAB 09/28/18 Allergies Allergies: Coded Allergies: No Known Allergy (Unverified , 10/21/18) PMhx/Soc History of Surgery: No Anesthesia Reaction: No Hx Neurological Disorder: No Hx Respiratory Disorders: No Hx Cardiac Disorders: No Hx Psychiatric Problems: No Hx Miscellaneous Medical Probl: Yes (liver cirrhosis with ascites) Hx Alcohol Use: Yes (FORMER DRINKER) Hx Substance Use: No Hx Tobacco Use: No Smoking Status: Never smoker FmHx Family History: No diabetes Physical Exam Vitals Vital Signs Date Temp Pulse Resp B/P (MAP) Pulse Ox O2 O2 Flow FiO2 Time Delivery Rate 10/21/18 108 17 132/74 93 Room Air 13:05 (93) 10/21/18 106 18 127/83 95 Room Air 12:32 (98) 10/21/18 99.3 123 20 131/86 96 11:31 (101) Physical Exam Const: No acute distress Head: Atraumatic Eyes: Normal Conjunctiva ENT: Normal External Ears, Nose and Mouth. Neck: Full range of motion. No meningismus. Resp: Clear to auscultation bilaterally Cardio: Regular rate and rhythm, no murmurs Abd: Distended with ascites. Normal bowel sounds Skin: No petechiae or rashes Back: No midline or flank tenderness Ext: No cyanosis, or edema Neur: Awake and alert Psych: Normal Mood and Affect Results 24 hrs Current Medications Medications Dose Sig/Ivan Start Time Status Last (Trade) Ordered Route PRN Stop Time Admin Dose Reason Admin Lidocaine 5 ml STK-MED 10/21/18 DC 10/21/18 (Xylocaine ONCE .ROUTE 12:33 12:45 1% (Mpf)) 10/21/18 12:34 Procedures/MDM MDM The patient's presentation warrants further investigation. Previous medical records, if available, were reviewed. LABS The patient's laboratory testing was reviewed from 10/06/2018. No emergent treatment was required unless described below. INR 1.1 TREATMENT/DISPOSITION The patient presents for desire for paracentesis. The patient had his coagulation studies completed within the last month. The patient's INR is less than 2. I do not see any evidence of cellulitis or abscess or other soft tissue infection. The patient is afebrile with unremarkable vital signs. The patient does not have any significant abdominal tenderness. I do not suspect spontaneous bacterial peritonitis and I do not feel the patient requires evaluation of his ascitic fluid today. The patient is not septic. He is not altered. There is no evidence of hepatic encephalopathy. I do feel the patient requires paracentesis for abdominal decompression. This was completed by interventional radiology without complication. Less than 5 L were taken off. The patient was evaluated in the emergency department after the procedure with stable blood pressure. The patient does not require albumin therapy. DISCHARGE Upon reevaluation of the patient, symptoms have improved. No emergent diagnoses were identified. At this time, I feel that the patient stable for discharge. The patient was instructed to follow-up with a primary care physician in 1-3 days. The patient will be given strict precautions with which to return to the emergency department. Prescriptions: none Disclaimer: Inadvertent spelling and grammatical errors are likely due to EHR/dictation software use and do not reflect on the overall quality of patient care. Note that the electronic time recorded on this note does not necessarily reflect the actual time of the patient encounter. Departure Diagnosis: Primary Impression: Alcoholic cirrhosis of liver with ascites Additional Impressions: Abdominal distention Status post abdominal paracentesis Condition: Stable Patient Instructions: Ascites, Cirrhosis, Paracentesis Additional Instructions: Thank you for for coming to [facility] for your care today. Please ask your nurse or provider if you have questions about your care today and do not leave until all your questions have been answered. Please use any medications given as directed and follow-up with your doctor (or the doctor you were referred to) in the next 1-3 days. If you do not have a primary care doctor you may follow up at the [facility] or formerly [facility], [facility] (listed below). You may also use motrin and tylenol as needed for fever and/or pain unless instructed otherwise by your provider or nurse. Indications for more urgent follow-up have been discussed, but you may return to the Emergency Department at ANY time for any worrisome or worsening symptoms. If you have abdominal pain, please know that no test or exam you received is perfect and you should follow up within 8 hours for continued pain. If you had any imaging studies today, such as an X-Ray or CT Scan, these studies will be reviewed later by a radiologist. You will be called if there are important findings that were not identified today, so make sure the contact information you provided at registration is correct. If you received any narcotic pain control medicine today, such as Vicodin, Morphine or Dilaudid, your coordination and judgment may be affected for a number of hours. Please do not drive or operate heavy machinery, and you may want someone to assist you at home. If you were given a prescription for narcotic medication, be aware that it is very addictive- use sparingly and only if necessary. PLEASE SEEK FURTHER EVALUATION AND MANAGEMENT AT YOUR DOCTORS OFFICE WITHIN THE NEXT 1-3 DAYS. IT IS YOUR RESPONSIBILITY TO MAKE AN APPOINTMENT FOR FOLOW-UP CARE. IF YOU HAVE A PRIMARY DOCTOR, PLEASE CALL THEIR OFFICE TO SCHEDULE AN APPOINTMENT FOR FOLLOW UP. IF YOU DO NOT HAVE A PRIMARY DOCTOR YOU CAN CALL OUR PHYSICIAN REFERRAL HOTLINE AT IF YOU CAN NOT AFFORD TO SEE A PHYSICIAN YOU CAN CHOSE FROM THE FOLLOWING [facility] CLINICS: [facility] [address] [facility] [address] [facility] [address] [facility] [address] [facility]. [facility] [address] [facility]. [facility]. [address] YAMILE SCOTT MD Oct 21, 2018 13:37
[2018-10-21 13:51] VITALS: BP 125/85; PULSE 92; RESP 16
== END 2018-10-21 13:53 | disposition home or self-care (01) ==
LOC: E/R 11:29
DX: K70.31 Alcoholic cirrhosis of liver with ascites (principal); Z48.817 Encounter for surgical aftercare following surgery on the skin and subcutaneous tissue
CPT/HCPCS: Z7502; Z7610

== ENCOUNTER 2018-10-29 07:23 | Emergency (ER) | payer MEDICAID ==
[~2018-10-29] VITALS: Ht 170.2 cm; Wt 71.6 kg
[2018-10-29 07:25] VITALS: Ht 170.2 cm; Wt 71.6 kg
[2018-10-29] MEDS ORDERED: LIDOCAINE 1% (MPF) 5 ML VIAL ONE (09:38)
--- NOTE | 2018-10-29 09:49 | ERD ---
ER Documentation Chief Complaint Chief Complaint pt is here for paracentesis HPI 42-year-old male with a history of alcoholic alcoholic liver cirrhosis, ascites and frequent paracenteses, well-known to this ED presents to the ED complaining of abdominal distention requiring a paracentesis. Denies abdominal pain, nausea, vomiting, diarrhea, constipation, hematemesis, hematochezia or melanotic stools. No shortness of breath or cough. Denies leg pain or swelling. No fevers or chills. ROS All systems reviewed and are negative except as per history of present illness. Medications Home Meds Reported Medications Midodrine* (Midodrine*) 10 Mg Tablet, 10 MG PO TID, TAB 09/28/18 Thiamine* (Vitamin B-1*) 100 Mg Tablet, 100 MG PO DAILY, TAB 09/28/18 Folic Acid/Vitamin B Comp W-C (Renal Multivitamin Tablet) 0.8 Mg Tablet, 0.8 MG PO DAILY, TAB 09/28/18 Melatonin (Melatonin) 10 Mg Tablet, 10 MG PO HS, TAB 09/28/18 Lactulose* (Lactulose*) 20 Gm/30 Ml Solution, 30 ML PO BID, ML 09/28/18 Spironolactone* (Spironolactone*) 100 Mg Tablet, 100 MG PO DAILY, TAB 09/28/18 Esomeprazole Mag Trihydrate (Nexium) 40 Mg Capsule.dr, 40 MG PO DAILY, #30 CAP 09/28/18 Rifaximin* (Xifaxan*) 550 Mg Tablet, 550 MG PO BID, TAB 09/28/18 Furosemide* (Furosemide*) 40 Mg Tablet, 40 MG PO DAILY, TAB 09/28/18 Allergies Allergies: Coded Allergies: No Known Allergy (Unverified , 10/29/18) PMhx/Soc Reviewed History of Surgery: No Anesthesia Reaction: No Hx Neurological Disorder: No Hx Respiratory Disorders: No Hx Cardiac Disorders: No Hx Psychiatric Problems: No Hx Miscellaneous Medical Probl: Yes (liver cirrhosis with ascites) Hx Alcohol Use: Yes (FORMER DRINKER) Hx Substance Use: No Hx Tobacco Use: No Smoking Status: Former smoker Physical Exam Vitals Vital Signs Date Temp Pulse Resp B/P (MAP) Pulse Ox O2 O2 Flow FiO2 Time Delivery Rate 10/29/18 98 16 118/76 95 Room Air 10:39 (90) 10/29/18 97.8 97 18 163/101 97 07:25 (121) Physical Exam Const: No acute distress Head: Atraumatic Eyes: Normal Conjunctiva ENT: Normal External Ears, Nose and Mouth. Neck: Full range of motion. No meningismus. Resp: Clear to auscultation bilaterally Cardio: Regular rate and rhythm, no murmurs Abd: Soft, distended, positive fluid wave, non tender, non distended. Normal bowel sounds Skin: No petechiae or rashes Back: No midline or flank tenderness Ext: No cyanosis, or edema Neur: Awake and alert Psych: Normal Mood and Affect Results 24 hrs Current Medications Medications Dose Sig/Ivan Start Time Status Last (Trade) Ordered Route PRN Stop Time Admin Dose Reason Admin Lidocaine 5 ml STK-MED 10/29/18 DC 10/29/18 (Xylocaine ONCE .ROUTE 09:38 10/29/18 10:11 1% (Mpf)) 09:39 Procedures/MDM DOCUMENTS REVIEWED: ED nurse, prior ED, prior records ED COURSE: Ultrasound-guided paracentesis by IR. REEXAMINATION/REEVALUATION: Doing well. Symptomatically improved. No hypotension. MEDICAL DECISION MAKIN-year-old male with a history of alcoholic alcoholic liver cirrhosis, ascites and frequent paracenteses, well-known to this ED presents to the ED complaining of abdominal distention requiring a paracentesis. Large volume ultrasound-guided paracentesis performed by interventional radiology and 5 liters removed. Patient feels significantly better. No hypotension. No fever, leukocytosis, abdominal tenderness or other signs of an acute intra-abdominal process including spontaneous bacterial peritonitis. Stable for discharge with precautionary instructions and outpatient follow-up as counseled. Counseled patient regarding diagnostic workup, diagnosis and need for followup. Understands to return to ED for bleeding, pain, discharge from puncture site, if symptoms recur, worsen or any other concerns. Departure Diagnosis: Primary Impression: Abdominal distention Additional Impression: Alcoholic cirrhosis of liver with ascites Condition: Stable (Improved) KATELYNN CRESPO MD October 29, 2018 09:49
[2018-10-29 10:39] VITALS: BP 118/76; PULSE 98; RESP 16
== END 2018-10-29 10:40 | disposition home or self-care (01) ==
LOC: E/R 07:23
DX: K70.31 Alcoholic cirrhosis of liver with ascites (principal); Z87.891 Personal history of nicotine dependence
CPT/HCPCS: Z7502; Z7610

== ENCOUNTER 2018-11-04 23:16 | Emergency (ER) | payer SELFPAY ==
[~2018-11-04] VITALS: Ht 170.2 cm; Wt 70.2 kg
[2018-11-04 23:24] VITALS: BP 130/79; PULSE 97; RESP 18; Ht 170.2 cm; Wt 70.2 kg
== END 2018-11-04 23:50 | disposition left against medical advice (07) ==
LOC: E/R 23:16
DX: Z53.21 Procedure and treatment not carried out due to patient leaving prior to being seen by health care provider (principal)

== ENCOUNTER 2018-11-05 08:13 | Emergency (ER) | payer MEDICAID ==
[~2018-11-05] VITALS: Wt 69.7 kg
--- NOTE | 2018-11-05 09:36 | ERD ---
ER Documentation Chief Complaint Chief Complaint here for paracenthesis HPI 42-year-old male with a history of alcoholic alcoholic liver cirrhosis, ascites and frequent paracenteses, well-known to this ED presents to the ED complaining of abdominal distention requesting a paracentesis. Patient states he is also been feeling confused lately and wants his ammonia checked. Denies abdominal pain, nausea, vomiting, diarrhea, constipation, hematemesis, hematochezia or melenic stools. No shortness of breath or cough. Denies leg pain or swelling. No fevers or chills. ROS All systems reviewed and are negative except as per history of present illness. Medications Home Meds Reported Medications Midodrine* (Midodrine*) 10 Mg Tablet, 10 MG PO TID, TAB 09/28/18 Thiamine* (Vitamin B-1*) 100 Mg Tablet, 100 MG PO DAILY, TAB 09/28/18 Folic Acid/Vitamin B Comp W-C (Renal Multivitamin Tablet) 0.8 Mg Tablet, 0.8 MG PO DAILY, TAB 09/28/18 Melatonin (Melatonin) 10 Mg Tablet, 10 MG PO HS, TAB 09/28/18 Lactulose* (Lactulose*) 20 Gm/30 Ml Solution, 30 ML PO BID, ML 09/28/18 Spironolactone* (Spironolactone*) 100 Mg Tablet, 100 MG PO DAILY, TAB 09/28/18 Esomeprazole Mag Trihydrate (Nexium) 40 Mg Capsule.dr, 40 MG PO DAILY, #30 CAP 09/28/18 Rifaximin* (Xifaxan*) 550 Mg Tablet, 550 MG PO BID, TAB 09/28/18 Furosemide* (Furosemide*) 40 Mg Tablet, 40 MG PO DAILY, TAB 09/28/18 Allergies Allergies: Coded Allergies: No Known Allergy (Unverified , 11/05/18) PMhx/Soc Medical and Surgical Hx: pt denies Surgical Hx History of Surgery: No Anesthesia Reaction: No Hx Neurological Disorder: No Hx Respiratory Disorders: No Hx Cardiac Disorders: No Hx Psychiatric Problems: No Hx Miscellaneous Medical Probl: Yes (liver cirrhosis with ascites) Hx Alcohol Use: Yes (FORMER DRINKER) Hx Substance Use: No Hx Tobacco Use: No Smoking Status: Never smoker Physical Exam Vitals Vital Signs Date Temp Pulse Resp B/P (MAP) Pulse Ox O2 O2 Flow FiO2 Time Delivery Rate 11/05/18 98.1 76 19 126/74 97 Room Air 10:29 (91) 11/05/18 98.0 93 18 130/89 Room Air 09:45 (103) 11/05/18 98.2 92 18 155/74 99 08:16 (101) Physical Exam Const: No acute distress HEENT: [place] conjunctivae, moist mucous membranes Resp: Clear to auscultation bilaterally Cardio: Regular rate and rhythm, no murmurs Abd: Soft, non tender, non distended. No guarding, no rigidity Neur: Awake and alert x3, no focal deficits or facial asymmetry, gait normal Psych: Normal Mood and Affect Result Diagram: 11/05/1892311/05/18924 Results 24 hrs Laboratory Tests Test 11/05/18 09:24 11/05/18 09:25 White Blood Count 4.6 10^3/ul Red Blood Count 4.06 10^6/ul Hemoglobin 13.2 g/dl Hematocrit 38.5 % Mean Corpuscular Volume 94.8 fl Mean Corpuscular Hemoglobin 32.5 pg Mean Corpuscular Hemoglobin Concent 34.3 g/dl Red Cell Distribution Width 14.1 % Platelet Count 46 10^3/UL Mean Platelet Volume 11.3 fl Immature Granulocytes % 0.200 % Neutrophils % 63.0 % Lymphocytes % 23.3 % Monocytes % 10.5 % Eosinophils % 0.4 % Basophils % 2.6 % Nucleated Red Blood Cells % 0.0 /100WBC Immature Granulocytes # 0.010 10^3/ul Neutrophils # 2.9 10^3/ul Lymphocytes # 1.1 10^3/ul Monocytes # 0.5 10^3/ul Eosinophils # 0.0 10^3/ul Basophils # 0.1 10^3/ul Nucleated Red Blood Cells # 0.0 10^3/ul Prothrombin Time 14.4 Sec Prothrombin Time Ratio 1.1 INR International Normalized Ratio 1.11 Activated Partial Thromboplast Time 32.6 Sec Ammonia 20 umol/l Sodium Level 142 mmol/L Potassium Level 4.4 mmol/L Chloride Level 100 mmol/L Carbon Dioxide Level 30 mmol/L Anion Gap 12 Blood Urea Nitrogen 21 mg/dl Creatinine 1.50 mg/dl Est Glomerular Filtrat Rate mL/min 51 mL/min Glucose Level 102 mg/dl Calcium Level 7.9 mg/dl Total Bilirubin 1.5 mg/dl Direct Bilirubin 0.00 mg/dl Indirect Bilirubin 1.5 mg/dl Aspartate Amino Transf (AST/SGOT) 448 IU/L Alanine Aminotransferase (ALT/SGPT) 91 IU/L Alkaline Phosphatase 387 IU/L Total Protein 8.1 g/dl Albumin 3.7 g/dl Globulin 4.40 g/dl Albumin/Globulin Ratio 0.84 Lipase 171 U/L Current Medications Medications Dose Sig/Ivan Start Time Status Last (Trade) Ordered Route PRN Stop Time Admin Dose Reason Admin Lidocaine 5 ml STK-MED 11/05/18 DC 11/05/18 (Xylocaine ONCE .ROUTE 09:52 11/05/18 10:17 1% (Mpf)) 09:53 Procedures/MDM CBC and electrolytes were unremarkable, ammonia level low, liver function tests revealed transaminitis coagulation profile unremarkable. Radiology department performed ultrasound-guided paracentesis, 5 L of ascitic fluid removed Patient feels much better at this time, and vital signs are normal, symptoms have improved. I did give strict instructions to return to the ED if symptoms continue or worsen, patient will otherwise follow-up with primary care physician. Patient understood instructions and agreed to plan. Disclaimer: Inadvertent spelling and grammatical errors are likely due to EHR/dictation software use and do not reflect on the overall quality of patient care. Also, please note that the electronic time recorded on this note does not necessarily reflect the actual time of the patient encounter. Departure Diagnosis: Primary Impression: Ascites Ascites type: due to alcoholic cirrhosis Qualified Codes: K70.31 - Alcoholic cirrhosis of liver with ascites Ruled Out: Thrombocytopenia Condition: Good Patient Instructions: Ascites EMILIANA WOOD MD November 05, 2018 09:36
[2018-11-05 09:45] VITALS: BP 130/89; PULSE 93; RESP 18
[2018-11-05] MEDS ORDERED: LIDOCAINE 1% (MPF) 5 ML VIAL ONE (09:52)
[2018-11-05 10:29] VITALS: BP 126/74; PULSE 76; RESP 19
== END 2018-11-05 10:31 | disposition home or self-care (01) ==
LOC: E/R 08:13
DX: K70.31 Alcoholic cirrhosis of liver with ascites (principal)
CPT/HCPCS: 36415; 80053; 82140; 83690; 85025; 85610; 85730; Z7502; Z7610

== ENCOUNTER 2018-11-05 20:31 | Emergency (ER) | payer SELFPAY ==
[~2018-11-05] VITALS: Wt 65.0 kg
[2018-11-05 21:06] VITALS: BP 137/79; PULSE 92; RESP 18
== END 2018-11-06 00:23 | disposition left against medical advice (07) ==
LOC: E/R 20:31
DX: Z53.21 Procedure and treatment not carried out due to patient leaving prior to being seen by health care provider (principal)

== ENCOUNTER 2018-11-13 10:03 | Emergency (ER) | payer MEDICAID ==
[~2018-11-13] VITALS: Ht 170.2 cm; Wt 72.9 kg
[2018-11-13 10:14] VITALS: Ht 170.2 cm; Wt 72.9 kg
[2018-11-13] MEDS ORDERED: LIDOCAINE 1% (MPF) 5 ML VIAL ONE (12:40)
[2018-11-13 13:17] VITALS: BP 145/94; PULSE 88; RESP 20
--- NOTE | 2018-11-13 13:28 | ERD ---
ER Documentation Chief Complaint Chief Complaint PT CAME FOR PARACENTESIS; ABD. FIRM, DISTENDED. ASCITES NOTED HPI This is a very pleasant 43-year-old male that sent to the emergency department with abdominal ascites. The patient presents to the emergency department regularly for therapeutic paracentesis. Patient indicates his abdomen is distended he is complaining of mild dyspnea and his last paracentesis was 1 week prior to arrival. He denies any abdominal pain. He has no fevers or shaking or chills. He denies any hemoptysis hematemesis or melanotic stools. ROS All systems reviewed and are negative except as per history of present illness. Medications Home Meds Reported Medications Midodrine* (Midodrine*) 10 Mg Tablet, 10 MG PO TID, TAB 09/28/18 Thiamine* (Vitamin B-1*) 100 Mg Tablet, 100 MG PO DAILY, TAB 09/28/18 Folic Acid/Vitamin B Comp W-C (Renal Multivitamin Tablet) 0.8 Mg Tablet, 0.8 MG PO DAILY, TAB 09/28/18 Melatonin (Melatonin) 10 Mg Tablet, 10 MG PO HS, TAB 09/28/18 Lactulose* (Lactulose*) 20 Gm/30 Ml Solution, 30 ML PO BID, ML 09/28/18 Spironolactone* (Spironolactone*) 100 Mg Tablet, 100 MG PO DAILY, TAB 09/28/18 Esomeprazole Mag Trihydrate (Nexium) 40 Mg Capsule.dr, 40 MG PO DAILY, #30 CAP 09/28/18 Rifaximin* (Xifaxan*) 550 Mg Tablet, 550 MG PO BID, TAB 09/28/18 Furosemide* (Furosemide*) 40 Mg Tablet, 40 MG PO DAILY, TAB 09/28/18 Allergies Allergies: Coded Allergies: No Known Allergy (Unverified , 11/13/18) PMhx/Soc History of Surgery: No Anesthesia Reaction: No Hx Neurological Disorder: No Hx Respiratory Disorders: No Hx Cardiac Disorders: No Hx Psychiatric Problems: No Hx Miscellaneous Medical Probl: Yes (liver cirrhosis with ascites) Hx Alcohol Use: Yes (FORMER DRINKER) Hx Substance Use: No Hx Tobacco Use: No Smoking Status: Never smoker Physical Exam Vitals Vital Signs Date Temp Pulse Resp B/P (MAP) Pulse Ox O2 O2 Flow FiO2 Time Delivery Rate 11/13/18 98.0 88 20 145/94 95 Room Air 13:17 (111) 11/13/18 98.0 80 20 146/116 95 Room Air 12:02 (126) 11/13/18 98.0 80 20 133/87 95 10:14 (102) Physical Exam Constitutional:Well-developed. Well-nourished. HEENT:Normocephalic. Atraumatic.Pupils were equal round reactive to light. Moist mucous membranes.No tonsillar exudates. Neck: No nuchal rigidity. No lymphadenopathy. No posterior cervical spine tenderness or step-offs. Respiratory: Not using accessory muscles of respiration.Lungs were clear to auscultation bilaterally. No rhonchi. No rales. No wheezing. Cardiovascular: Regular rate regular rhythm.No murmurs. No rubs were appreciated.S1, S2 normal. Distal pulses are palpable 2+ bilaterally. GI: Abdomen was soft. Nontender. Tense abdominal ascites with positive fluid thrill. No pulsatile abdominal masses or bruits. No rebound. No guarding. Bowel sounds were present and normal. Muscle skeletal: Full range of motion of both the upper and lower extremities bilaterally.Normal muscle tone.No assymetrical calf tenderness or swelling. Skin: No petechia, no purpura. No lesions on the palms or the soles of the feet. No maculopapular rash. NEURO: Patient was alert, awake, orientated x3.No facial droop. Gait observed and normal with no ataxia.Speech had regular rate and rhythm. No focal neurological deficits. Results 24 hrs Current Medications Medications Dose Sig/Ivan Start Time Status Last (Trade) Ordered Route PRN Stop Time Admin Dose Reason Admin Lidocaine 5 ml STK-MED 11/13/18 DC 11/13/18 (Xylocaine ONCE .ROUTE 12:40 13:10 1% (Mpf)) 11/13/18 12:41 Procedures/MDM This is a 43-year-old male that presented to the emergency department for therapeutic paracentesis. There is no physical exam findings to suggest spontaneous bacterial peritonitis. The patient had an ultrasound-guided paracentesis performed by the radiologist. The patient had 5 L removed successfully without any complications. The patient was discharged home in fair condition. They were instructed to return to the emergency department at any time if there was any worsening of their condition. The patient stated they would follow up with their PCP in the next 24-48 hours to initiate a suitable medication regimen under the care of their PCP as well as to allow their PCP to monitor any drug reactions. The patient was discharged home with prescriptions after they gave informed consent to the new medication. They were also fully informed by myself on the adverse effects and adverse drug interactions in order to provide adequate safeguards to prevent possible adverse reactions to medications. Departure Diagnosis: Primary Impression: S/P abdominal paracentesis Additional Impression: Alcoholic cirrhosis of liver with ascites Condition: Fair Patient Instructions: Paracentesis YUNIOR NOLAN MD November 13, 2018 13:28
== END 2018-11-13 14:15 | disposition home or self-care (01) ==
LOC: E/R 10:03
DX: K70.31 Alcoholic cirrhosis of liver with ascites (principal); Z98.890 Other specified postprocedural states
CPT/HCPCS: Z7502; Z7610

== ENCOUNTER 2018-11-21 07:19 | Emergency (ER) | payer MEDICAID ==
[~2018-11-21] VITALS: Ht 170.2 cm; Wt 75.6 kg
[2018-11-21 07:20] VITALS: BP 142/99; PULSE 74; RESP 16; Ht 170.2 cm; Wt 75.6 kg
--- NOTE | 2018-11-21 07:57 | ERD ---
ER Documentation Chief Complaint Chief Complaint pt is bib self with abd swelling, last paracentesis over 1 wk HPI Patient is a 43 years old male with past medical history of liver failure presenting to the clinic for abdominal swelling. Patient reports visiting ER for frequent paracentesis and admits same for today's visit. Patient reports of mild abdominal pain. Patient denies nausea, emesis. ROS All systems reviewed and are negative except as per history of present illness. Medications Home Meds Reported Medications Midodrine* (Midodrine*) 10 Mg Tablet, 10 MG PO TID, TAB 09/28/18 Thiamine* (Vitamin B-1*) 100 Mg Tablet, 100 MG PO DAILY, TAB 09/28/18 Folic Acid/Vitamin B Comp W-C (Renal Multivitamin Tablet) 0.8 Mg Tablet, 0.8 MG PO DAILY, TAB 09/28/18 Melatonin (Melatonin) 10 Mg Tablet, 10 MG PO HS, TAB 09/28/18 Lactulose* (Lactulose*) 20 Gm/30 Ml Solution, 30 ML PO BID, ML 09/28/18 Spironolactone* (Spironolactone*) 100 Mg Tablet, 100 MG PO DAILY, TAB 09/28/18 Esomeprazole Mag Trihydrate (Nexium) 40 Mg Capsule.dr, 40 MG PO DAILY, #30 CAP 09/28/18 Rifaximin* (Xifaxan*) 550 Mg Tablet, 550 MG PO BID, TAB 09/28/18 Furosemide* (Furosemide*) 40 Mg Tablet, 40 MG PO DAILY, TAB 09/28/18 Allergies Allergies: Coded Allergies: No Known Allergy (Unverified , 11/13/18) PMhx/Soc Liver failure. History of Surgery: No Anesthesia Reaction: No Hx Neurological Disorder: No Hx Respiratory Disorders: No Hx Cardiac Disorders: No Hx Psychiatric Problems: No Hx Miscellaneous Medical Probl: Yes (liver cirrhosis with ascites) Hx Alcohol Use: Yes (FORMER DRINKER) Hx Substance Use: No Hx Tobacco Use: No Physical Exam Vitals Vital Signs Date Temp Pulse Resp B/P (MAP) Pulse Ox O2 O2 Flow FiO2 Time Delivery Rate 11/21/18 98.3 74 16 142/99 99 07:20 (113) Physical Exam Const: No acute distress Head: Atraumatic Eyes: Normal Conjunctiva Cardio: Regular rate and rhythm, no murmurs Abd: Soft, non tender, distended. Normal bowel sounds Skin: No petechiae or rashes Ext: No cyanosis, or edema Neur: Awake and alert Psych: Normal Mood and Affect Results 24 hrs Current Medications Medications Dose Sig/Ivan Start Time Status Last (Trade) Ordered Route PRN Stop Time Admin Dose Reason Admin Lidocaine 5 ml STK-MED 11/21/18 DC (Xylocaine ONCE .ROUTE 09:28 1% (Mpf)) 11/21/18 09:29 Procedures/MDM Patient presents for recurrent paracentesis without any complications. Patient is stable. Ultrasound-guided paracentesis performed. Attending note: Case was discussed in detail with the advanced practice provider. [Patient was seen independently] Diagnostic assessment reviewed. I agree with the assessment and care plan as discussed. Briefly, this is a 43-year-old presents for a recurrent therapeutic paracentesis. Patient has no clinical evidence of other high-risk concerns including no evidence of SBP. Patient appears to be clinically nontoxic and appropriate for discharge. Departure Diagnosis: Primary Impression: S/P abdominal paracentesis Additional Impression: Ascites Condition: Stable BECKI BOWERS PA-C November 21, 2018 07:57 DONELL GORMAN November 21, 2018 10:07
[2018-11-21] MEDS ORDERED: LIDOCAINE 1% (MPF) 5 ML VIAL ONE (09:28)
== END 2018-11-21 10:45 | disposition home or self-care (01) ==
LOC: E/R 07:19
DX: R18.8 Other ascites (principal); Y84.4 Aspiration of fluid as the cause of abnormal reaction of the patient, or of later complication, without mention of misadventure at the time of the procedure
CPT/HCPCS: Z7502; Z7610

== ENCOUNTER 2018-11-28 07:25 | Emergency (ER) | payer MEDICAID ==
[~2018-11-28] VITALS: Ht 180.3 cm; Wt 68.0 kg
[2018-11-28 07:27] VITALS: Ht 180.3 cm; Wt 68.0 kg
[2018-11-28 09:45] VITALS: BP 128/95; PULSE 80; RESP 20
[2018-11-28] MEDS ORDERED: LIDOCAINE 1% (MPF) 5 ML VIAL ONE (10:12)
[2018-11-28 10:23] VITALS: BP 122/91; PULSE 81; RESP 18
[2018-11-28 10:35] VITALS: BP 134/92; PULSE 72; RESP 18
[2018-11-28 10:45] VITALS: BP 157/97; PULSE 68; RESP 16
--- NOTE | 2018-11-29 12:51 | ERD ---
ER Documentation Chief Complaint Chief Complaint abdominal distention needs paracentsis HPI This is a 43-year-old male with history of alcoholic liver cirrhosis. The patient indicates for the past several days he has been eating poorly with high salt intake. He has had abdominal distention. He is had multiple hospital visits for therapeutic paracentesis. He said no fevers or shaking or chills. He denies any hemoptysis hematemesis or melanotic stools. His last consumption of alcohol was over 24 hours ago. He denies any history of withdrawal seizures. He does not feel anxious or shaky. He has no chest pain. He has no shortness of breath. His last paracentesis was 7 days prior to arrival. ROS All systems reviewed and are negative except as per history of present illness. Medications Home Meds Reported Medications Midodrine* (Midodrine*) 10 Mg Tablet, 10 MG PO TID, TAB 09/28/18 Thiamine* (Vitamin B-1*) 100 Mg Tablet, 100 MG PO DAILY, TAB 09/28/18 Folic Acid/Vitamin B Comp W-C (Renal Multivitamin Tablet) 0.8 Mg Tablet, 0.8 MG PO DAILY, TAB 09/28/18 Melatonin (Melatonin) 10 Mg Tablet, 10 MG PO HS, TAB 09/28/18 Lactulose* (Lactulose*) 20 Gm/30 Ml Solution, 30 ML PO BID, ML 09/28/18 Spironolactone* (Spironolactone*) 100 Mg Tablet, 100 MG PO DAILY, TAB 09/28/18 Esomeprazole Mag Trihydrate (Nexium) 40 Mg Capsule.dr, 40 MG PO DAILY, #30 CAP 09/28/18 Rifaximin* (Xifaxan*) 550 Mg Tablet, 550 MG PO BID, TAB 09/28/18 Furosemide* (Furosemide*) 40 Mg Tablet, 40 MG PO DAILY, TAB 09/28/18 Allergies Allergies: Coded Allergies: No Known Allergy (Unverified , 11/28/18) PMhx/Soc Medical and Surgical Hx: pt denies Surgical Hx History of Surgery: No Anesthesia Reaction: No Hx Neurological Disorder: No Hx Respiratory Disorders: No Hx Cardiac Disorders: No Hx Psychiatric Problems: No Hx Miscellaneous Medical Probl: Yes (liver cirrhosis with ascites) Hx Alcohol Use: Yes (DRANK LAST NIGHT) Hx Substance Use: No Hx Tobacco Use: No Smoking Status: Unknown if ever smoked Physical Exam Vitals Vital Signs Date Temp Pulse Resp B/P (MAP) Pulse Ox O2 O2 Flow FiO2 Time Delivery Rate 11/28/18 68 16 157/97 99 Room Air 10:45 (117) 11/28/18 72 18 134/92 98 Room Air 10:35 (106) 11/28/18 81 18 122/91 97 Room Air 10:23 (101) 11/28/18 80 20 128/95 96 Room Air 09:45 (106) 11/28/18 97.8 96 18 145/95 98 07:27 (112) Physical Exam Constitutional:Well-developed. Well-nourished. HEENT:Normocephalic. Atraumatic.Pupils were equal round reactive to light. Mild scleral icterus. Respiratory: Not using accessory muscles of respiration.Lungs were clear to auscultation bilaterally. No rhonchi. No rales. No wheezing. Cardiovascular: Regular rate regular rhythm.No murmurs. No rubs were appreciated.S1, S2 normal. Distal pulses are palpable 2+ bilaterally. GI: Abdomen distended with tense ascites positive fluid thrill, no tenderness.. No pulsatile abdominal masses or bruits. No rebound. No guarding. Bowel sounds were present and normal. Results 24 hrs Current Medications Medications Dose Sig/Ivan Start Time Status Last (Trade) Ordered Route PRN Stop Time Admin Dose Reason Admin Lidocaine 5 ml STK-MED 11/28/18 DC 11/28/18 (Xylocaine ONCE .ROUTE 10:12 10:20 1% (Mpf)) 11/28/18 10:13 Procedures/MDM This patient presented to the emergency department for therapeutic paracentesis. This was performed under ultrasound guidance by the radiologist. The patient tolerated the procedure well. 5 L was removed. The patient was discharged home in fair condition. They were instructed to return to the emergency department at any time if there was any worsening of their condition. The patient stated they would follow up with their PCP in the next 24-48 hours to initiate a suitable medication regimen under the care of their PCP as well as to allow their PCP to monitor any drug reactions. The patient was discharged home with prescriptions after they gave informed consent to the new medication. They were also fully informed by myself on the adverse effects and adverse drug interactions in order to provide adequate safeguards to prevent possible adverse reactions to medications. Departure Diagnosis: Primary Impression: Ascites Ascites type: due to alcoholic cirrhosis Qualified Codes: K70.31 - Alcoholic cirrhosis of liver with ascites Condition: Fair Patient Instructions: Paracentesis YUNIOR NOLAN MD Nov 29, 2018 12:51
== END 2018-11-28 10:50 | disposition home or self-care (01) ==
LOC: E/R 07:25
DX: K70.31 Alcoholic cirrhosis of liver with ascites (principal)
CPT/HCPCS: Z7502; Z7610

== ENCOUNTER 2018-12-02 07:23 | Emergency (ER) | payer MEDICAID ==
[~2018-12-02] VITALS: Ht 160 cm; Wt 73.7 kg
[2018-12-02 07:29] VITALS: Ht 160 cm; Wt 73.7 kg
--- NOTE | 2018-12-02 07:54 | ERD ---
ER Documentation Chief Complaint Chief Complaint needs fluid removed. HPI 43-year-old male with a history of alcoholic cirrhosis who presents for need for paracentesis. The patient has very frequent visits to the emergency room for paracentesis. His last was approximately 1 week ago. He denies any fevers or chills. He does describe fullness and early satiety. Patient states that he has been eating poorly with a high salt diet. He denies fevers chills hematemesis or melena. Symptoms are moderate. ROS All systems reviewed and are negative except as per history of present illness. Medications Home Meds Reported Medications Midodrine* (Midodrine*) 10 Mg Tablet, 10 MG PO TID, TAB 09/28/18 Thiamine* (Vitamin B-1*) 100 Mg Tablet, 100 MG PO DAILY, TAB 09/28/18 Folic Acid/Vitamin B Comp W-C (Renal Multivitamin Tablet) 0.8 Mg Tablet, 0.8 MG PO DAILY, TAB 09/28/18 Melatonin (Melatonin) 10 Mg Tablet, 10 MG PO HS, TAB 09/28/18 Lactulose* (Lactulose*) 20 Gm/30 Ml Solution, 30 ML PO BID, ML 09/28/18 Spironolactone* (Spironolactone*) 100 Mg Tablet, 100 MG PO DAILY, TAB 09/28/18 Esomeprazole Mag Trihydrate (Nexium) 40 Mg Capsule.dr, 40 MG PO DAILY, #30 CAP 09/28/18 Rifaximin* (Xifaxan*) 550 Mg Tablet, 550 MG PO BID, TAB 09/28/18 Furosemide* (Furosemide*) 40 Mg Tablet, 40 MG PO DAILY, TAB 09/28/18 Allergies Allergies: Coded Allergies: No Known Allergy (Unverified , 11/28/18) PMhx/Soc Medical and Surgical Hx: pt denies Surgical Hx History of Surgery: No Anesthesia Reaction: No Hx Neurological Disorder: No Hx Respiratory Disorders: No Hx Cardiac Disorders: No Hx Psychiatric Problems: No Hx Miscellaneous Medical Probl: Yes (liver cirrhosis with ascites) Hx Alcohol Use: Yes (DRANK LAST NIGHT) Hx Substance Use: No Hx Tobacco Use: No Smoking Status: Never smoker FmHx Family History: No diabetes Physical Exam Vitals Vital Signs Date Temp Pulse Resp B/P (MAP) Pulse Ox O2 O2 Flow FiO2 Time Delivery Rate 12/02/18 98.0 80 18 109/55 98 Room Air 08:39 (73) 12/02/18 98.0 100 20 129/89 97 Room Air 08:00 (102) 12/02/18 98.2 118 18 145/98 95 07:29 (114) Physical Exam My brief exam I think general: Well developed, well nourished, no acute distress Head: Normocephalic, atraumatic. Eyes: EOM intact ENT: Moist mucous membranes Neck: Full ROM Respiratory: No respiratory distress Cardiovascular: Well perfused distally Abdominal: Protuberant, positive fluid wave, no abdominal tenderness or peritonitis : Deferred MSK: No edema, no unilateral swelling, 5/5 strength Neurologic: Alert and oriented, moving all extremities, normal speech, steady gait Skin: No rash Psych: Normal mood Results 24 hrs Current Medications Medications Dose Sig/Ivan Start Time Status Last (Trade) Ordered Route PRN Stop Time Admin Dose Reason Admin Lidocaine 5 ml STK-MED 12/02/18 DC 12/02/18 (Xylocaine ONCE .ROUTE 08:14 12/02/18 08:36 1% (Mpf)) 08:15 Procedures/MDM EKG, MONITORS, & DIAGNOSTIC IMAGING: Therapeutic paracentesis performed by interventional radiology. LAB INTERPRETATION: No significant coagulopathy noted on labs within the past 30 days MEDICAL DECISION MAKING: The patient presents with abdominal ascites likely secondary to cirrhosis. Patient does not exhibit any signs or symptoms concerning for complications of cirrhosis such as GI bleed, hepatic encephalopathy or spontaneous bacterial peritonitis. There is no indication currently for diagnostic paracentesis. The patient will benefit from therapeutic paracentesis by interventional radiology. If the patient remains stable without evidence of hemodynamic compromise or post-paracentesis circulatory dysfunction secondary to fluid shifts the patient can be safely discharged home with close primary care and hepatology follow-up. *The patient has a high frequency of visits to the emergency room in a short timeframe. I do not believe clinically that the patient absolutely requires therapeutic paracentesis. The patient is very poorly compliant with a diet that is likely leading to his increased frequency of visits to the emergency room. There is also likely psychosocial element. Case management has been involved. ER COURSE: The patient had successful therapeutic paracentesis limited to 5L. The patient remained hemodynamically stable and otherwise well-appearing. The patient is safe for discharge home. No indication for albumin infusion at this time. I kept the patient and/or family informed of laboratory and diagnostic imaging results throughout the emergency room course. DISPOSITION PLAN: We discussed follow up with the patient's primary care doctor within 24 to 48 hours as needed. We also discussed return to the emergency room for worsening symptoms or worsening condition. Discharge Medications: None Departure Diagnosis: Primary Impression: Alcoholic cirrhosis of liver with ascites Condition: Stable JOZEF CARLIN MD Dec 02, 2018 07:54
[2018-12-02 08:00] VITALS: BP 129/89; PULSE 100; RESP 20
[2018-12-02] MEDS ORDERED: LIDOCAINE 1% (MPF) 5 ML VIAL ONE (08:14)
[2018-12-02 08:45] VITALS: BP 125/79; PULSE 98; RESP 18
== END 2018-12-02 09:11 | disposition home or self-care (01) ==
LOC: E/R 07:23
DX: K70.31 Alcoholic cirrhosis of liver with ascites (principal)
CPT/HCPCS: Z7502; Z7610

== ENCOUNTER 2018-12-09 08:38 | Emergency (ER) | payer MEDICAID ==
[~2018-12-09] VITALS: Ht 167.6 cm; Wt 71.7 kg
[2018-12-09 08:40] VITALS: BP 146/89; PULSE 99; RESP 18; Ht 167.6 cm; Wt 71.7 kg
--- NOTE | 2018-12-09 10:25 | ERD ---
ER Documentation Chief Complaint Chief Complaint here for paracenthesis HPI Patient is a 43-year-old male with hypertension and history of cirrhosis who presents for paracentesis. He has abdominal distention. He denies fevers. He has no pain. He has no nausea, vomiting, or diarrhea. Upon review of old medical records the patient has multiple visits for similar and he is well-known to both myself and to our staff. ROS All systems reviewed and are negative except as per history of present illness. Medications Home Meds Reported Medications Midodrine* (Midodrine*) 10 Mg Tablet, 10 MG PO TID, TAB 09/28/18 Thiamine* (Vitamin B-1*) 100 Mg Tablet, 100 MG PO DAILY, TAB 09/28/18 Folic Acid/Vitamin B Comp W-C (Renal Multivitamin Tablet) 0.8 Mg Tablet, 0.8 MG PO DAILY, TAB 09/28/18 Melatonin (Melatonin) 10 Mg Tablet, 10 MG PO HS, TAB 09/28/18 Lactulose* (Lactulose*) 20 Gm/30 Ml Solution, 30 ML PO BID, ML 09/28/18 Spironolactone* (Spironolactone*) 100 Mg Tablet, 100 MG PO DAILY, TAB 09/28/18 Esomeprazole Mag Trihydrate (Nexium) 40 Mg Capsule.dr, 40 MG PO DAILY, #30 CAP 09/28/18 Rifaximin* (Xifaxan*) 550 Mg Tablet, 550 MG PO BID, TAB 09/28/18 Furosemide* (Furosemide*) 40 Mg Tablet, 40 MG PO DAILY, TAB 09/28/18 Allergies Allergies: Coded Allergies: No Known Allergy (Unverified , 12/09/18) PMhx/Soc History of Surgery: No Anesthesia Reaction: No Hx Neurological Disorder: No Hx Respiratory Disorders: No Hx Cardiac Disorders: No Hx Psychiatric Problems: No Hx Miscellaneous Medical Probl: Yes (liver cirrhosis with ascites) Hx Alcohol Use: Yes (DRANK LAST NIGHT) Hx Substance Use: No Hx Tobacco Use: No Smoking Status: Never smoker FmHx Family History: No diabetes Physical Exam Vitals Vital Signs Date Temp Pulse Resp B/P (MAP) Pulse Ox O2 O2 Flow FiO2 Time Delivery Rate 12/09/18 99.1 99 18 146/89 99 08:40 (108) Physical Exam Const: No acute distress Head: Atraumatic Eyes: Normal Conjunctiva ENT: Normal External Ears, Nose and Mouth. Neck: Full range of motion. No meningismus. Resp: Clear to auscultation bilaterally Cardio: Regular rate and rhythm, no murmurs Abd: Abdominal distention Skin: No petechiae or rashes Back: No midline or flank tenderness Ext: No cyanosis, or edema Neur: Awake and alert Psych: Normal Mood and Affect Result Diagram: 12/09/1890612/09/18 0907 Results 24 hrs Laboratory Tests Test 12/09/18 09:07 White Blood Count 7.3 10^3/ul Red Blood Count 3.34 10^6/ul Hemoglobin 10.9 g/dl Hematocrit 32.0 % Mean Corpuscular Volume 95.8 fl Mean Corpuscular Hemoglobin 32.6 pg Mean Corpuscular Hemoglobin Concent 34.1 g/dl Red Cell Distribution Width 14.8 % Platelet Count 87 10^3/UL Mean Platelet Volume 9.4 fl Immature Granulocytes % 0.500 % Neutrophils % 44.8 % Lymphocytes % 32.1 % Monocytes % 17.4 % Eosinophils % 3.4 % Basophils % 1.8 % Nucleated Red Blood Cells % 0.0 /100WBC Immature Granulocytes # 0.040 10^3/ul Neutrophils # 3.3 10^3/ul Lymphocytes # 2.4 10^3/ul Monocytes # 1.3 10^3/ul Eosinophils # 0.3 10^3/ul Basophils # 0.1 10^3/ul Nucleated Red Blood Cells # 0.0 10^3/ul Prothrombin Time 13.8 Sec Prothrombin Time Ratio 1.1 INR International Normalized Ratio 1.05 Activated Partial Thromboplast Time 33.3 Sec Sodium Level 138 mmol/L Potassium Level 4.0 mmol/L Chloride Level 105 mmol/L Carbon Dioxide Level 28 mmol/L Anion Gap 5 Blood Urea Nitrogen 16 mg/dl Creatinine 1.11 mg/dl Est Glomerular Filtrat Rate mL/min > 60 mL/min Glucose Level 104 mg/dl Calcium Level 7.8 mg/dl Total Bilirubin 0.7 mg/dl Direct Bilirubin 0.00 mg/dl Indirect Bilirubin 0.7 mg/dl Aspartate Amino Transf (AST/SGOT) 190 IU/L Alanine Aminotransferase (ALT/SGPT) 49 IU/L Alkaline Phosphatase 247 IU/L Total Protein 6.7 g/dl Albumin 3.0 g/dl Globulin 3.70 g/dl Albumin/Globulin Ratio 0.81 Lipase 196 U/L Procedures/MDM Patient is a 43-year-old male with cirrhosis who presents for paracentesis. Laboratory studies were consistent with a patient with cirrhosis. I doubt spontaneous bacterial peritonitis. The patient does not want to wait any longer for his paracentesis and is going to leave prior to the paracentesis being performed. He can return for any worsening symptoms. Departure Diagnosis: Primary Impression: Ascites Ascites type: other type Qualified Codes: R18.8 - Other ascites Condition: Fair Patient Instructions: Ascites Referrals: [facility] YOU HAVE RECEIVED A MEDICAL SCREENING EXAM AND THE RESULTS INDICATE THAT YOU DO NOT HAVE A CONDITION THAT REQUIRES URGENT TREATMENT IN THE EMERGENCY DEPARTMENT. FURTHER EVALUATION AND TREATMENT OF YOUR CONDITION CAN WAIT UNTIL YOU ARE SEEN IN YOUR DOCTORS OFFICE WITHIN THE NEXT 1-2 DAYS. IT IS YOUR RESPONSIBILITY TO MAKE AN APPOINTMENT FOR FOLOW-UP CARE. IF YOU HAVE A PRIMARY DOCTOR --you should call your primary doctor and schedule an appointment IF YOU DO NOT HAVE A PRIMARY DOCTOR YOU CAN CALL OUR PHYSICIAN REFERRAL HOTLINE AT IF YOU CAN NOT AFFORD TO SEE A PHYSICIAN YOU CAN CHOSE FROM THE FOLLOWING [facility] [address] [facility]. [facility] [address] [facility] [facility] [address] [facility] [facility] [address] [facility]. [facility] [address] [facility]. [facility]. [address] Additional Instructions: Call your primary care doctor TOMORROW for an appointment during the next 1 WEEK.Tell the advisory application developer that you were referred from this facility.See the doctor sooner or return here if your condition worsens before your appointment time. MARILUZ DOHERTY MD Dec 09, 2018 10:25
== END 2018-12-09 10:32 | disposition home or self-care (01) ==
LOC: E/R 08:38
DX: K74.69 Other cirrhosis of liver (principal); I10 Essential (primary) hypertension
CPT/HCPCS: 36415; 80053; 83690; 85025; 85610; 85730; Z7502

== ENCOUNTER 2018-12-12 07:10 | Emergency (ER) | payer MEDICAID ==
[~2018-12-12] VITALS: Ht 171.4 cm; Wt 74.3 kg
[2018-12-12 07:13] VITALS: Ht 171.4 cm; Wt 74.3 kg
--- NOTE | 2018-12-12 07:28 | ERD ---
ER Documentation Chief Complaint Chief Complaint abdominal pain/distention - for paracentesis HPI This is a 43-year-old male with a history of liver cirrhosis and multiple ER visits for paracentesis who presents to the emergency room for evaluation of abdominal distention. The patient states that last time he was here he could not wait for the paracentesis and left. He states that he is having some abdominal distention but denies any fevers chills nausea vomiting chest pain associated with this. He states that receiving a paracentesis does help with his symptoms, denies any aggravating symptoms at this time and came to the ER for evaluation. ROS All systems reviewed and are negative except as per history of present illness. Medications Home Meds Reported Medications Midodrine* (Midodrine*) 10 Mg Tablet, 10 MG PO TID, TAB 09/28/18 Thiamine* (Vitamin B-1*) 100 Mg Tablet, 100 MG PO DAILY, TAB 09/28/18 Folic Acid/Vitamin B Comp W-C (Renal Multivitamin Tablet) 0.8 Mg Tablet, 0.8 MG PO DAILY, TAB 09/28/18 Melatonin (Melatonin) 10 Mg Tablet, 10 MG PO HS, TAB 09/28/18 Lactulose* (Lactulose*) 20 Gm/30 Ml Solution, 30 ML PO BID, ML 09/28/18 Spironolactone* (Spironolactone*) 100 Mg Tablet, 100 MG PO DAILY, TAB 09/28/18 Esomeprazole Mag Trihydrate (Nexium) 40 Mg Capsule.dr, 40 MG PO DAILY, #30 CAP 09/28/18 Rifaximin* (Xifaxan*) 550 Mg Tablet, 550 MG PO BID, TAB 09/28/18 Furosemide* (Furosemide*) 40 Mg Tablet, 40 MG PO DAILY, TAB 09/28/18 Allergies Allergies: Coded Allergies: No Known Allergy (Unverified , 12/09/18) PMhx/Soc History of Surgery: No Anesthesia Reaction: No Hx Neurological Disorder: No Hx Respiratory Disorders: No Hx Cardiac Disorders: No Hx Psychiatric Problems: No Hx Miscellaneous Medical Probl: Yes (liver cirrhosis with ascites) Hx Alcohol Use: Yes (DRANK LAST NIGHT) Hx Substance Use: No Hx Tobacco Use: No Physical Exam Vitals Vital Signs Date Temp Pulse Resp B/P (MAP) Pulse Ox O2 O2 Flow FiO2 Time Delivery Rate 12/12/18 97.0 103 24 136/96 95 07:13 (109) Physical Exam Const: No acute distress Head: Atraumatic Eyes: Normal Conjunctiva ENT: Normal External Ears, Nose and Mouth. Neck: Full range of motion. No meningismus. Resp: Clear to auscultation bilaterally Cardio: Regular rate and rhythm, no murmurs Abd: Terminal distention, normal bowel sounds, nontender Skin: No petechiae or rashes Back: No midline or flank tenderness Ext: No cyanosis, or edema Neur: Awake and alert Psych: Normal Mood and Affect Results 24 hrs Current Medications Medications Dose Sig/Ivan Start Time Status Last (Trade) Ordered Route PRN Stop Time Admin Dose Reason Admin Lidocaine 5 ml STK-MED 12/12/18 DC 12/12/18 (Xylocaine ONCE .ROUTE 08:26 08:47 1% (Mpf)) 12/12/18 08:27 Procedures/MDM This 43-year-old male presents the ER for evaluation of abdominal distention. The patient is well-known to the emergency room and does have a history of liver cirrhosis with ascites has required multiple ultrasound paracentesis in the past. The patient had no fever, and a therapeutic paracentesis was performed. The patient tolerated the procedure well. He is in no acute distress and hemodynamically stable and will be discharged at this time. Departure Diagnosis: Primary Impression: Abdominal distention Additional Impression: Alcoholic cirrhosis of liver with ascites MATTHIAS IVEY DO Dec 12, 2018 07:28
[2018-12-12] MEDS ORDERED: LIDOCAINE 1% (MPF) 5 ML VIAL ONE (08:26)
[2018-12-12 09:00] VITALS: BP 146/90; PULSE 86; RESP 16
== END 2018-12-12 09:00 | disposition home or self-care (01) ==
LOC: E/R 07:10
DX: K70.31 Alcoholic cirrhosis of liver with ascites (principal)
CPT/HCPCS: Z7502; Z7610

== ENCOUNTER 2018-12-15 10:20 | Emergency (ER) | payer MEDICAID ==
[~2018-12-15] VITALS: Ht 170.2 cm; Wt 72.3 kg
[2018-12-15 10:23] VITALS: Ht 170.2 cm; Wt 72.3 kg
[2018-12-15] MEDS ORDERED: LIDOCAINE 1% (MPF) 5 ML VIAL ONE (13:02)
[2018-12-15 13:27] VITALS: BP 134/94; PULSE 65; RESP 16
--- NOTE | 2018-12-15 13:43 | ERD ---
ER Documentation Chief Complaint Chief Complaint ABDOMINAL DISTENTION NEEDS FLUID REMOVAL HPI This is a 43-year-old male with a past medical history of alcoholic cirrhosis with ascites requiring frequent paracenteses who is presenting with abdominal distention and desire for paracentesis. The patient's last paracentesis at our facility was on December 09, 2018. The patient's INR was 1.1 on that day as well. The patient denies any abdominal pain. He does endorse abdominal distention, bloating and discomfort. He does not endorse any alleviating or exacerbating factors. The patient reports that while he did relapse with alcohol 2 months ago, the patient is planning to go into rehab in the next 1 to 2 days. The patient denies feeling sick recently. He denies any fever or chills. The patient has had no headache or vision changes. The patient does not endorse neck or back pain. The patient denies lightheadedness or dizziness. The patient has had no chest pain or trouble breathing. The patient denies nausea or vomiting. The patient denies changes to bowel movements or urination. The patient has had no focal deficits. The patient has had no weakness or numbness or tingling to the face or extremities. ROS All systems reviewed and are negative except as per history of present illness. Medications Home Meds Reported Medications Midodrine* (Midodrine*) 10 Mg Tablet, 10 MG PO TID, TAB 09/28/18 Thiamine* (Vitamin B-1*) 100 Mg Tablet, 100 MG PO DAILY, TAB 09/28/18 Folic Acid/Vitamin B Comp W-C (Renal Multivitamin Tablet) 0.8 Mg Tablet, 0.8 MG PO DAILY, TAB 09/28/18 Melatonin (Melatonin) 10 Mg Tablet, 10 MG PO HS, TAB 09/28/18 Lactulose* (Lactulose*) 20 Gm/30 Ml Solution, 30 ML PO BID, ML 09/28/18 Spironolactone* (Spironolactone*) 100 Mg Tablet, 100 MG PO DAILY, TAB 09/28/18 Esomeprazole Mag Trihydrate (Nexium) 40 Mg Capsule.dr, 40 MG PO DAILY, #30 CAP 09/28/18 Rifaximin* (Xifaxan*) 550 Mg Tablet, 550 MG PO BID, TAB 09/28/18 Furosemide* (Furosemide*) 40 Mg Tablet, 40 MG PO DAILY, TAB 09/28/18 Allergies Allergies: Coded Allergies: No Known Allergy (Unverified , 12/15/18) PMhx/Soc History of Surgery: No Anesthesia Reaction: No Hx Neurological Disorder: No Hx Respiratory Disorders: No Hx Cardiac Disorders: No Hx Psychiatric Problems: No Hx Miscellaneous Medical Probl: Yes (liver cirrhosis with ascites) Hx Alcohol Use: Yes (SCHEDULED TO ENTER REHAB 03/19) Hx Substance Use: No Hx Tobacco Use: No Smoking Status: Never smoker FmHx Family History: No diabetes Physical Exam Vitals Vital Signs Date Temp Pulse Resp B/P (MAP) Pulse Ox O2 O2 Flow FiO2 Time Delivery Rate 12/15/18 65 16 134/94 98 Room Air 13:27 (107) 12/15/18 97.8 89 18 184/75 97 10:23 (111) Physical Exam Const: No acute distress Head: Atraumatic Eyes: Normal Conjunctiva ENT: Normal External Ears, Nose and Mouth. Neck: Full range of motion. No meningismus. Resp: Clear to auscultation bilaterally Cardio: Regular rate and rhythm, no murmurs Abd: Distended with ascites. Normal bowel sounds Skin: No petechiae or rashes Back: No midline or flank tenderness Ext: No cyanosis, or edema Neur: Awake and alert Psych: Normal Mood and Affect Results 24 hrs Current Medications Medications Dose Sig/Ivan Start Time Status Last (Trade) Ordered Route PRN Stop Time Admin Dose Reason Admin Lidocaine 5 ml STK-MED 12/15/18 DC 12/15/18 (Xylocaine ONCE .ROUTE 13:02 13:23 1% (Mpf)) 12/15/18 13:03 Procedures/MDM MDM The patient's presentation warrants further investigation. Previous medical records, if available, were reviewed. LABS The patient's laboratory testing was reviewed from 12/09/2018. No emergent treatment was required unless described below. INR 1.1 TREATMENT/DISPOSITION The patient presents for desire for paracentesis. The patient had his coagulation studies completed within the last month. The patient's INR is less than 2. I do not see any evidence of cellulitis or abscess or other soft tissue infection. The patient is afebrile with unremarkable vital signs. The patient does not have any significant abdominal tenderness. I do not suspect spontaneous bacterial peritonitis and I do not feel the patient requires evaluation of his ascitic fluid today. The patient is not septic. He is not altered. There is no evidence of hepatic encephalopathy. I do feel the patient requires paracentesis for abdominal decompression. This was completed by interventional radiology without complication. Less than 5 L were taken off. The patient's symptoms have improved significantly. The patient was reevaluated in the emergency department after the procedure with stable blood pressure. The patient does not require albumin therapy. DISCHARGE Upon reevaluation of the patient, symptoms have improved. No emergent diagnoses were identified. At this time, I feel that the patient stable for discharge. The patient was instructed to follow-up with a primary care physician in 1-3 days. The patient will be given strict precautions with which to return to the emergency department. Prescriptions: none Disclaimer: Inadvertent spelling and grammatical errors are likely due to EHR /dictation software use and do not reflect on the overall quality of patient care. Note that the electronic time recorded on this note does not necessarily reflect the actual time of the patient encounter. Departure Diagnosis: Primary Impression: Alcoholic cirrhosis of liver with ascites Additional Impressions: Abdominal distention S/P abdominal paracentesis Condition: Stable Patient Instructions: Ascites, Cirrhosis, Paracentesis Additional Instructions: Thank you for for coming to [facility] for your care today. Please ask your nurse or provider if you have questions about your care today and do not leave until all your questions have been answered. Please use any medications given as directed and follow-up with your doctor (or the doctor you were referred to) in the next 1-3 days. If you do not have a primary care doctor you may follow up at the [facility] or critical access hospital clinic (listed below). You may also use motrin and tylenol as needed for fever and/or pain unless instructed otherwise by your provider or nurse. Indications for more urgent follow-up have been discussed, but you may return to the Emergency Department at ANY time for any worrisome or worsening symptoms. If you have abdominal pain, please know that no test or exam you received is perfect and you should follow up within 8 hours for continued pain. If you had any imaging studies today, such as an X-Ray or CT Scan, these studies will be reviewed later by a radiologist. You will be called if there are important findings that were not identified today, so make sure the contact information you provided at registration is correct. If you received any narcotic pain control medicine today, such as Vicodin, Morphine or Dilaudid, your coordination and judgment may be affected for a number of hours. Please do not drive or operate heavy machinery, and you may want someone to assist you at home. If you were given a prescription for narcotic medication, be aware that it is very addictive- use sparingly and only if necessary. PLEASE SEEK FURTHER EVALUATION AND MANAGEMENT AT YOUR DOCTORS OFFICE WITHIN THE NEXT 1-3 DAYS. IT IS YOUR RESPONSIBILITY TO MAKE AN APPOINTMENT FOR FOLOW-UP CARE. IF YOU HAVE A PRIMARY DOCTOR, PLEASE CALL THEIR OFFICE TO SCHEDULE AN APPOI NTMENT FOR FOLLOW UP. IF YOU DO NOT HAVE A PRIMARY DOCTOR YOU CAN CALL OUR PHYSICIAN REFERRAL HOTLINE AT IF YOU CAN NOT AFFORD TO SEE A PHYSICIAN YOU CAN CHOSE FROM THE FOLLOWING [facility] CLINICS: [facility] [address] [facility] [address] [facility] [facility] [address] [facility] [address] [facility] [facility] [address] [facility]. [facility]. [address] YAMILE SCOTT MD Dec 15, 2018 13:43
== END 2018-12-15 13:53 | disposition home or self-care (01) ==
LOC: E/R 10:20
DX: K70.31 Alcoholic cirrhosis of liver with ascites (principal); Z98.890 Other specified postprocedural states
CPT/HCPCS: Z7502; Z7610

== ENCOUNTER 2018-12-23 08:17 | Emergency (ER) | payer MEDICAID ==
[~2018-12-23] VITALS: Ht 170.2 cm; Wt 73.8 kg
[2018-12-23 08:22] VITALS: Ht 170.2 cm; Wt 73.8 kg
[2018-12-23] MEDS ORDERED: LIDOCAINE 1% (MPF) 5 ML VIAL ONE (09:50)
[2018-12-23 10:48] VITALS: BP 120/70; PULSE 75; RESP 18
--- NOTE | 2018-12-23 14:19 | ERD ---
ER Documentation Chief Complaint Chief Complaint here for paracenthesis HPI Is a 43-year-old male with a history of alcoholic liver cirrhosis. The patient presents to the emergency department abdominal distention. His last paracentesis was 1 week ago. Indicates he has been in rehab for 1 week and has not consumed any alcohol since that time. He denies any hemoptysis hematemesis or melanotic stools. He denies any fever shaking or chills. He denies any abdominal pain and no difficulty in breathing ROS All systems reviewed and are negative except as per history of present illness. Medications Home Meds Reported Medications Midodrine* (Midodrine*) 10 Mg Tablet, 10 MG PO TID, TAB 09/28/18 Thiamine* (Vitamin B-1*) 100 Mg Tablet, 100 MG PO DAILY, TAB 09/28/18 Folic Acid/Vitamin B Comp W-C (Renal Multivitamin Tablet) 0.8 Mg Tablet, 0.8 MG PO DAILY, TAB 09/28/18 Melatonin (Melatonin) 10 Mg Tablet, 10 MG PO HS, TAB 09/28/18 Lactulose* (Lactulose*) 20 Gm/30 Ml Solution, 30 ML PO BID, ML 09/28/18 Spironolactone* (Spironolactone*) 100 Mg Tablet, 100 MG PO DAILY, TAB 09/28/18 Esomeprazole Mag Trihydrate (Nexium) 40 Mg Capsule.dr, 40 MG PO DAILY, #30 CAP 09/28/18 Rifaximin* (Xifaxan*) 550 Mg Tablet, 550 MG PO BID, TAB 09/28/18 Furosemide* (Furosemide*) 40 Mg Tablet, 40 MG PO DAILY, TAB 09/28/18 Allergies Allergies: Coded Allergies: No Known Allergy (Unverified , 12/23/18) PMhx/Soc History of Surgery: No Anesthesia Reaction: No Hx Neurological Disorder: No Hx Respiratory Disorders: No Hx Cardiac Disorders: No Hx Psychiatric Problems: No Hx Miscellaneous Medical Probl: Yes (liver cirrhosis with ascites) Hx Alcohol Use: Yes (SCHEDULED TO ENTER REHAB 03/19) Hx Substance Use: No Hx Tobacco Use: No Smoking Status: Never smoker Physical Exam Vitals Vital Signs Date Temp Pulse Resp B/P (MAP) Pulse Ox O2 O2 Flow FiO2 Time Delivery Rate 12/23/18 98.1 75 18 120/70 98 Room Air 10:48 (87) 12/23/18 98.2 77 18 122/79 98 Room Air 09:30 (93) 12/23/18 98.5 107 18 114/65 97 08:22 (81) Physical Exam Constitutional:Well-developed. Well-nourished. HEENT:Normocephalic. Atraumatic.Pupils were equal round reactive to light. Moist mucous membranes.no scleral icterus Neck: No nuchal rigidity. No lymphadenopathy. No posterior cervical spine tenderness or step-offs. Respiratory: Not using accessory muscles of respiration.Lungs were clear to auscultation bilaterally. No rhonchi. No rales. No wheezing. Cardiovascular: Regular rate regular rhythm.No murmurs. No rubs were appreciated.S1, S2 normal. Distal pulses are palpable 2+ bilaterally. GI: Abdomen was distended with tense abdominal ascites. No tenderness. No pulsatile abdominal masses or bruits. No rebound. No guarding. Bowel sounds were present and normal. Skin: No petechia, no purpura. No lesions on the palms or the soles of the feet. No maculopapular rash. NEURO: Patient was alert, awake, orientated x3.No facial droop. Gait observed and normal with no ataxia.Speech had regular rate and rhythm. No focal neurological deficits. Results 24 hrs Current Medications Medications Dose Sig/Ivan Start Time Status Last (Trade) Ordered Route PRN Stop Time Admin Dose Reason Admin Lidocaine 5 ml STK-MED 12/23/18 DC 12/23/18 (Xylocaine ONCE .ROUTE 09:50 10:14 1% (Mpf)) 12/23/18 09:51 Procedures/MDM This Is a 43-year-old male that presented to the emergency department for therapeutic paracentesis. This was performed by the radiologist. There was no comp occasions other than a minimal amount of blood that had been found in the ascitic fluid upon initial removal. This continued to clear to transparent yellow fluid. The patient indicates that this happens regularly during his paracentesis he is. 5 L was removed. This was performed by the radiologist. The patient was discharged home in fair condition. They were instructed to return to the emergency department at any time if there was any worsening of their condition. The patient stated they would follow up with their PCP in the next 24-48 hours to initiate a suitable medication regimen under the care of their PCP as well as to allow their PCP to monitor any drug reactions. The patient was discharged home with prescriptions after they gave informed consent to the new medication. They were also fully informed by myself on the adverse effects and adverse drug interactions in order to provide adequate safeguards to prevent possible adverse reactions to medications. Departure Diagnosis: Primary Impression: Alcoholic cirrhosis of liver with ascites Condition: Fair Patient Instructions: Ascites YUNIOR NOLAN MD Dec 23, 2018 14:18
== END 2018-12-23 11:03 | disposition home or self-care (01) ==
LOC: E/R 08:17
DX: K70.31 Alcoholic cirrhosis of liver with ascites (principal)
CPT/HCPCS: Z7610 ×2

== ENCOUNTER 2018-12-30 08:57 | Emergency (ER) | payer MEDICAID, OTHER ==
[~2018-12-30] VITALS: Ht 172.7 cm; Wt 77.2 kg
[2018-12-30 09:08] VITALS: Ht 172.7 cm; Wt 77.2 kg
--- NOTE | 2018-12-30 09:28 | ERD ---
ER Documentation Chief Complaint Chief Complaint PT here for paracentesis, was 1 week ago for same. HPI 43-year-old history of alcoholic cirrhosis who presents to the emergency room requesting paracentesis given symptoms of volume overload. The patient scars fullness of the abdomen. No hematemesis, no melena, no abdominal pain, no fevers or chills. Last para 1 week ago. ROS All systems reviewed and are negative except as per history of present illness. Medications Home Meds Reported Medications Midodrine* (Midodrine*) 10 Mg Tablet, 10 MG PO TID, TAB 09/28/18 Thiamine* (Vitamin B-1*) 100 Mg Tablet, 100 MG PO DAILY, TAB 09/28/18 Folic Acid/Vitamin B Comp W-C (Renal Multivitamin Tablet) 0.8 Mg Tablet, 0.8 MG PO DAILY, TAB 09/28/18 Melatonin (Melatonin) 10 Mg Tablet, 10 MG PO HS, TAB 09/28/18 Lactulose* (Lactulose*) 20 Gm/30 Ml Solution, 30 ML PO BID, ML 09/28/18 Spironolactone* (Spironolactone*) 100 Mg Tablet, 100 MG PO DAILY, TAB 09/28/18 Esomeprazole Mag Trihydrate (Nexium) 40 Mg Capsule.dr, 40 MG PO DAILY, #30 CAP 09/28/18 Rifaximin* (Xifaxan*) 550 Mg Tablet, 550 MG PO BID, TAB 09/28/18 Furosemide* (Furosemide*) 40 Mg Tablet, 40 MG PO DAILY, TAB 09/28/18 Allergies Allergies: Coded Allergies: No Known Allergy (Unverified , 12/30/18) PMhx/Soc History of Surgery: No Anesthesia Reaction: No Hx Neurological Disorder: No Hx Respiratory Disorders: No Hx Cardiac Disorders: No Hx Psychiatric Problems: No Hx Miscellaneous Medical Probl: Yes (liver cirrhosis with ascites) Hx Alcohol Use: Yes (SCHEDULED TO ENTER REHAB 03/19) Hx Substance Use: No Hx Tobacco Use: Yes Smoking Status: Current some day smoker FmHx Family History: No diabetes Physical Exam Vitals Vital Signs Date Temp Pulse Resp B/P (MAP) Pulse Ox O2 O2 Flow FiO2 Time Delivery Rate 12/30/18 99.4 107 20 135/73 95 09:08 (93) Physical Exam Brief exam general: Well developed, well nourished, no acute distress Head: Normocephalic, atraumatic. Eyes: EOM intact ENT: Moist mucous membranes Neck: Full ROM Respiratory: No respiratory distress Cardiovascular: Well perfused distally Abdominal: Protuberant, nontender, no peritonitis : Deferred MSK: No edema, no unilateral swelling, 5/5 strength Neurologic: Alert and oriented, moving all extremities, normal speech, steady gait Skin: No rash Psych: Normal mood Procedures/MDM EKG, MONITORS, & DIAGNOSTIC IMAGING: Therapeutic paracentesis performed by interventional radiology. LAB INTERPRETATION: No significant coagulopathy noted on recent laboratory testing within the past 30 days MEDICAL DECISION MAKING: The patient presents with abdominal ascites likely secondary to cirrhosis. Patient does not exhibit any signs or symptoms concerning for complications of cirrhosis such as GI bleed, hepatic encephalopathy or spontaneous bacterial peritonitis. There is no indication currently for diagnostic paracentesis. The patient will benefit from therapeutic paracentesis by interventional radiology. If the patient remains stable without evidence of hemodynamic compromise or post-paracentesis circulatory dysfunction secondary to fluid shifts the patient can be safely discharged home with close primary care and hepatology follow-up. ER COURSE: The patient had successful therapeutic paracentesis limited to 5L. The patient remained hemodynamically stable and otherwise well-appearing. The patient is safe for discharge home. No indication for albumin infusion at this time. I kept the patient and/or family informed of laboratory and diagnostic imaging results throughout the emergency room course. DISPOSITION PLAN: We discussed follow up with the patient's primary care doctor within 24 to 48 hours as needed. We also discussed return to the emergency room for worsening symptoms or worsening condition. Discharge Medications: None Departure Diagnosis: Primary Impression: Alcoholic cirrhosis of liver with ascites Condition: Stable JOZEF CARLIN MD Dec 30, 2018 09:28
[2018-12-30 11:15] VITALS: BP 152/90; PULSE 89; RESP 18
[2018-12-30] MEDS ORDERED: LIDOCAINE 1% (MPF) 5 ML VIAL ONE ×2 (11:17→12:05)
== END 2018-12-30 11:15 | disposition home or self-care (01) ==
LOC: E/R 08:57 → FTE 11:15
DX: K70.31 Alcoholic cirrhosis of liver with ascites (principal); F17.210 Nicotine dependence, cigarettes, uncomplicated
CPT/HCPCS: Z7502; Z7610

== ENCOUNTER 2019-01-03 09:54 | Emergency (ER) | payer OTHER ==
[~2019-01-03] VITALS: Ht 170.2 cm; Wt 75.5 kg
[2019-01-03 10:09] VITALS: BP 121/76; PULSE 74; RESP 18; Ht 170.2 cm; Wt 75.5 kg
--- NOTE | 2019-01-03 10:25 | ERD ---
ER Documentation Chief Complaint Chief Complaint ABD. DISTENTION, NEED PARACENTESIS. HPI 43-year-old male presents to the emergency department, as he frequently does, for abdominal distention associated with alcoholic cirrhosis. Patient states he has not been compliant with either his diet or his medications and states he is having fullness of his abdomen. However he reports no fevers, chills, vomiting, melena. ROS All systems reviewed and are negative except as per history of present illness. Medications Home Meds Reported Medications Midodrine* (Midodrine*) 10 Mg Tablet, 10 MG PO TID, TAB 09/28/18 Thiamine* (Vitamin B-1*) 100 Mg Tablet, 100 MG PO DAILY, TAB 09/28/18 Folic Acid/Vitamin B Comp W-C (Renal Multivitamin Tablet) 0.8 Mg Tablet, 0.8 MG PO DAILY, TAB 09/28/18 Melatonin (Melatonin) 10 Mg Tablet, 10 MG PO HS, TAB 09/28/18 Lactulose* (Lactulose*) 20 Gm/30 Ml Solution, 30 ML PO BID, ML 09/28/18 Spironolactone* (Spironolactone*) 100 Mg Tablet, 100 MG PO DAILY, TAB 09/28/18 Esomeprazole Mag Trihydrate (Nexium) 40 Mg Capsule.dr, 40 MG PO DAILY, #30 CAP 09/28/18 Rifaximin* (Xifaxan*) 550 Mg Tablet, 550 MG PO BID, TAB 09/28/18 Furosemide* (Furosemide*) 40 Mg Tablet, 40 MG PO DAILY, TAB 09/28/18 Allergies Allergies: Coded Allergies: No Known Allergy (Unverified , 12/30/18) PMhx/Soc History of Surgery: No Anesthesia Reaction: No Hx Neurological Disorder: No Hx Respiratory Disorders: No Hx Cardiac Disorders: No Hx Psychiatric Problems: No Hx Miscellaneous Medical Probl: Yes (liver cirrhosis with ascites) Hx Alcohol Use: Yes (SCHEDULED TO ENTER REHAB 03/19) Hx Substance Use: No Hx Tobacco Use: Yes Physical Exam Vitals Vital Signs Date Temp Pulse Resp B/P (MAP) Pulse Ox O2 O2 Flow FiO2 Time Delivery Rate 01/03/19 97.8 74 18 121/76 95 10:09 (91) Physical Exam GENERAL: Chronically ill male in no acute distress HEENT: Pupils equal, round, and reactive to light. EOMI. There is no scleral icterus. NECK: C-spine is soft and supple, there is no meningismus. There is no cervical lymphadenopathy. LUNGS: Clear to auscultation bilaterally. There are no rales, wheezes or rhonchi. HEART: Regular rate and rhythm, no murmurs, clicks, rubs or gallops. ABDOMEN: Soft, distended with a fluid wave. No rebound or guarding. There is no tenderness to palpation. The fluid is at baseline for this patient, as I have seen him multiple times, with no tense ascites. EXTREMITIES: There is no peripheral cyanosis or edema. No focal swelling or erythema. NEURO: The patient moves all four extremities with 5/5 strength. Cranial nerves II - XII are intact. Normal gait. Alert and oriented SKIN: There is no apparent rash or petechiae. HEME/LYMPHATIC: There is no evidence of excessive bruising or lymphedema. PSYCHIATRIC: The patient does not appear anxious or depressed. Procedures/MDM Patient was taken to a room, seen and examined Medical decision m[age]-year-old male presents with recurrent ascites, but no indications for emergent paracentesis. As patient is well-known to us with multiple paracenteses, he does not require drainage at this time. He is otherwise stable in his normal state of health and seems appropriate for discharge. Departure Diagnosis: Primary Impression: Alcoholic cirrhosis of liver with ascites Condition: Stable Patient Instructions: Cirrhosis DONELL GORMAN Jan 03, 2019 10:25
== END 2019-01-03 11:51 | disposition home or self-care (01) ==
LOC: E/R 09:54
DX: K70.31 Alcoholic cirrhosis of liver with ascites (principal); Z87.891 Personal history of nicotine dependence
CPT/HCPCS: 99282

== ENCOUNTER 2019-01-11 09:46 | Emergency (ER) | payer OTHER ==
[~2019-01-11] VITALS: Wt 74.3 kg
--- NOTE | 2019-01-11 11:05 | ERD ---
ER Documentation Chief Complaint Chief Complaint HERE FOR PARACENTHESIS HPI This is a 43-year-old male with history of cirrhosis, well-known to [facility], who presents for abdominal distention. His last paracentesis was about 2 weeks ago, he had 5 L taken out. He denies fevers, he denies diarrhea ROS All systems reviewed and are negative except as per history of present illness. Medications Home Meds Reported Medications Midodrine* (Midodrine*) 10 Mg Tablet, 10 MG PO TID, TAB 09/28/18 Thiamine* (Vitamin B-1*) 100 Mg Tablet, 100 MG PO DAILY, TAB 09/28/18 Folic Acid/Vitamin B Comp W-C (Renal Multivitamin Tablet) 0.8 Mg Tablet, 0.8 MG PO DAILY, TAB 09/28/18 Melatonin (Melatonin) 10 Mg Tablet, 10 MG PO HS, TAB 09/28/18 Lactulose* (Lactulose*) 20 Gm/30 Ml Solution, 30 ML PO BID, ML 09/28/18 Spironolactone* (Spironolactone*) 100 Mg Tablet, 100 MG PO DAILY, TAB 09/28/18 Esomeprazole Mag Trihydrate (Nexium) 40 Mg Capsule.dr, 40 MG PO DAILY, #30 CAP 09/28/18 Rifaximin* (Xifaxan*) 550 Mg Tablet, 550 MG PO BID, TAB 09/28/18 Furosemide* (Furosemide*) 40 Mg Tablet, 40 MG PO DAILY, TAB 09/28/18 Allergies Allergies: Coded Allergies: No Known Allergy (Unverified , 01/11/19) PMhx/Soc History of Surgery: No Anesthesia Reaction: No Hx Neurological Disorder: No Hx Respiratory Disorders: No Hx Cardiac Disorders: No Hx Psychiatric Problems: No Hx Miscellaneous Medical Probl: Yes (liver cirrhosis with ascites) Hx Alcohol Use: Yes (SCHEDULED TO ENTER REHAB 03/19) Hx Substance Use: No Hx Tobacco Use: Yes Smoking Status: Current every day smoker Physical Exam Vitals Vital Signs Date Temp Pulse Resp B/P (MAP) Pulse Ox O2 O2 Flow FiO2 Time Delivery Rate 01/11/19 98.0 76 16 132/79 100 Room Air 13:56 (96) 01/11/19 97.8 82 18 134/84 99 10:03 (101) Physical Exam Const: Well-developed, well-nourished nontoxic Head: Atraumatic Eyes: Normal conjunctiva ENT: Normal external ears, nose and mouth. Neck: Resp: Normal respiratory effort Cardio: Abd: Soft, distended, nontender, no rebound or guarding Skin: Back: Ext: Neur: Awake and alert Psych: Normal mood and affect Result Diagram: 01/11/19 1059 Results 24 hrs Laboratory Tests Test 01/11/19 10:59 White Blood Count 5.8 10^3/ul Red Blood Count 3.11 10^6/ul Hemoglobin 10.1 g/dl Hematocrit 30.3 % Mean Corpuscular Volume 97.4 fl Mean Corpuscular Hemoglobin 32.5 pg Mean Corpuscular Hemoglobin Concent 33.3 g/dl Red Cell Distribution Width 14.2 % Platelet Count 74 10^3/UL Mean Platelet Volume 9.5 fl Immature Granulocytes % 0.700 % Neutrophils % 61.0 % Lymphocytes % 18.2 % Monocytes % 14.6 % Eosinophils % 4.5 % Basophils % 1.0 % Nucleated Red Blood Cells % 0.0 /100WBC Immature Granulocytes # 0.040 10^3/ul Neutrophils # 3.6 10^3/ul Lymphocytes # 1.1 10^3/ul Monocytes # 0.9 10^3/ul Eosinophils # 0.3 10^3/ul Basophils # 0.1 10^3/ul Nucleated Red Blood Cells # 0.0 10^3/ul Current Medications Medications Dose Sig/Ivan Start Time Status Last (Trade) Ordered Route PRN Stop Time Admin Dose Reason Admin Lidocaine 5 ml STK-MED 01/11/19 DC 01/11/19 (Xylocaine ONCE .ROUTE 13:55 13:58 1% (Mpf)) 01/11/19 13:56 Procedures/MDM This is a 43-year-old male who presents for evaluation of abdominal distention. He has no signs or symptoms of infection, I do not suspect SBP. Ordered US guided paracentesis for therapeutic purpose. Labs per radiology request. Departure Diagnosis: Primary Impression: Ascites Ascites type: other type Qualified Codes: R18.8 - Other ascites Condition: Stable Comments Addendum: Time:14:32. Patient returned from radiology, status post ultrasound- guided paracentesis. Asymptomatic. Abdomen soft nontender. No bleeding or leakage. Stable for discharge with precautionary instructions and outpatient follow-up as counseled. EMILIANA DEJESUS MD Jan 11, 2019 11:05 KATELYNN CRESPO MD Jan 11, 2019 14:33
[2019-01-11] MEDS ORDERED: LIDOCAINE 1% (MPF) 5 ML VIAL ONE (13:55)
[2019-01-11 13:56] VITALS: BP 132/79; PULSE 76; RESP 16
== END 2019-01-11 14:15 | disposition left against medical advice (07) ==
LOC: E/R 09:46
DX: R18.8 Other ascites (principal); F17.210 Nicotine dependence, cigarettes, uncomplicated
CPT/HCPCS: 85025; Z7502; Z7610

== ENCOUNTER 2019-01-27 10:25 | Emergency (ER) | payer OTHER ==
[~2019-01-27] VITALS: Ht 165.1 cm; Wt 74.4 kg
[~2019-01-27 10:25] MED LIST changes: +FOLI-49 PO
[2019-01-27 10:42] VITALS: Ht 165.1 cm; Wt 74.4 kg
--- NOTE | 2019-01-27 13:16 | ERD ---
ER Documentation Chief Complaint Chief Complaint needs paracentesis, last time fluid removal 2wks ago HPI Patient is a 43-year-old male with history of cirrhosis who presents for paracentesis. His last paracentesis was January 19. He has no other complaints. He has no fevers. He is well-known to myself and to our staff and has frequent visits for paracentesis. ROS All systems reviewed and are negative except as per history of present illness. Medications Home Meds Reported Medications Midodrine* (Midodrine*) 10 Mg Tablet, 10 MG PO TID, TAB 09/28/18 Thiamine* (Vitamin B-1*) 100 Mg Tablet, 100 MG PO DAILY, TAB 09/28/18 Folic Acid/Vitamin B Comp W-C (Renal Multivitamin Tablet) 0.8 Mg Tablet, 0.8 MG PO DAILY, TAB 09/28/18 Melatonin (Melatonin) 10 Mg Tablet, 10 MG PO HS, TAB 09/28/18 Lactulose* (Lactulose*) 20 Gm/30 Ml Solution, 30 ML PO BID, ML 09/28/18 Spironolactone* (Spironolactone*) 100 Mg Tablet, 100 MG PO DAILY, TAB 09/28/18 Esomeprazole Mag Trihydrate (Nexium) 40 Mg Capsule.dr, 40 MG PO DAILY, #30 CAP 09/28/18 Rifaximin* (Xifaxan*) 550 Mg Tablet, 550 MG PO BID, TAB 09/28/18 Furosemide* (Furosemide*) 40 Mg Tablet, 40 MG PO DAILY, TAB 09/28/18 Allergies Allergies: Coded Allergies: No Known Allergy (Unverified , 01/11/19) PMhx/Soc Medical and Surgical Hx: pt denies Surgical Hx History of Surgery: No Anesthesia Reaction: No Hx Neurological Disorder: No Hx Respiratory Disorders: No Hx Cardiac Disorders: No Hx Psychiatric Problems: No Hx Miscellaneous Medical Probl: Yes (liver cirrhosis with ascites) Hx Alcohol Use: Yes (SCHEDULED TO ENTER REHAB 03/19) Hx Substance Use: No Hx Tobacco Use: Yes Smoking Status: Never smoker FmHx Family History: No diabetes Physical Exam Vitals Vital Signs Date Temp Pulse Resp B/P (MAP) Pulse Ox O2 O2 Flow FiO2 Time Delivery Rate 01/27/19 98.2 111 18 132/86 95 10:42 (101) Physical Exam Const: No acute distress Head: Atraumatic Eyes: Normal Conjunctiva ENT: Normal External Ears, Nose and Mouth. Neck: Full range of motion. No meningismus. Resp: Clear to auscultation bilaterally Cardio: Regular rate and rhythm, no murmurs Abd: Abdominal distention with positive fluid wave Skin: No petechiae or rashes Back: No midline or flank tenderness Ext: No cyanosis, or edema Neur: Awake and alert Psych: Normal Mood and Affect Procedures/MDM Ultrasound-guided paracentesis to be performed by radiology. Patient is a 43-year-old male presents for paracentesis. I have ordered an ultrasound-guided paracentesis to be performed by radiology. I doubt spontaneous bacterial peritonitis. I believe patient will be able to be disch arged once his paracentesis is complete. Departure Diagnosis: Primary Impression: Ascites Ascites type: other type Qualified Codes: R18.8 - Other ascites Condition: Fair Patient Instructions: Ascites Shunt Surgery Referrals: [facility] H.CJasson (PCP) Additional Instructions: Call your primary care doctor TOMORROW for an appointment during the next 1 WEEK.Tell the construction secretary that you were referred from this facility.See the doctor sooner or return here if your condition worsens before your appointment time. MARILUZ DOHERTY MD Jan 27, 2019 13:16
[2019-01-27] MEDS: LIDOCAINE 1% (MPF) 5 ML VIAL ONE ×2 (13:35→13:41)
[2019-01-27 13:55] VITALS: BP 131/93; PULSE 72; RESP 18
== END 2019-01-27 13:56 | disposition home or self-care (01) ==
LOC: E/R 10:25 → FTE 13:56
DX: R18.8 Other ascites (principal); Z87.891 Personal history of nicotine dependence
CPT/HCPCS: 49083; Z7502; Z7610

== ENCOUNTER 2019-02-07 09:59 | Emergency (ER) | payer SELFPAY ==
[~2019-02-07] VITALS: Ht 162.6 cm; Wt 73.4 kg
[2019-02-07 10:00] VITALS: BP 133/85; PULSE 85; RESP 18; Ht 162.6 cm; Wt 73.4 kg
== END 2019-02-07 11:27 | disposition left against medical advice (07) ==
LOC: E/R 09:59
DX: Z53.21 Procedure and treatment not carried out due to patient leaving prior to being seen by health care provider (principal)

== ENCOUNTER 2019-02-11 08:33 | Emergency (ER) | payer OTHER ==
[~2019-02-11] VITALS: Ht 171.4 cm; Wt 74.9 kg
[2019-02-11 08:36] VITALS: BP 126/88; PULSE 95; RESP 24; Ht 171.4 cm; Wt 74.9 kg
[2019-02-11] MEDS ORDERED: LIDOCAINE 1% (MPF) 5 ML VIAL ONE (11:55)
--- NOTE | 2019-02-11 12:24 | ERD ---
ER Documentation Chief Complaint Chief Complaint abdominal pain/swelling - for paracentesis HPI 43-year-old male well-known to the emergency department presents for a recurrent therapeutic paracentesis. Patient reports no acute complaints at this time including no pain, fever, bleeding. ROS All systems reviewed and are negative except as per history of present illness. Medications Home Meds Reported Medications Folic Acid* (Folic Acid*) 1 Mg Tablet, 1 MG PO DAILY, TAB 02/11/19 Thiamine* (Vitamin B-1*) 100 Mg Tablet, 100 MG PO DAILY, TAB 09/28/18 Spironolactone* (Spironolactone*) 100 Mg Tablet, 100 MG PO DAILY, TAB 09/28/18 Rifaximin* (Xifaxan*) 550 Mg Tablet, 550 MG PO BID, TAB 09/28/18 Furosemide* (Furosemide*) 40 Mg Tablet, 40 MG PO DAILY, TAB 09/28/18 Discontinued Reported Medications Midodrine* (Midodrine*) 10 Mg Tablet, 10 MG PO TID, TAB 09/28/18 Folic Acid/Vitamin B Comp W-C (Renal Multivitamin Tablet) 0.8 Mg Tablet, 0.8 MG PO DAILY, TAB 09/28/18 Melatonin (Melatonin) 10 Mg Tablet, 10 MG PO HS, TAB 09/28/18 Lactulose* (Lactulose*) 20 Gm/30 Ml Solution, 30 ML PO BID, ML 09/28/18 Esomeprazole Mag Trihydrate (Nexium) 40 Mg Capsule.dr, 40 MG PO DAILY, #30 CAP 09/28/18 Allergies Allergies: Coded Allergies: No Known Allergy (Unverified , 02/11/19) PMhx/Soc Medical and Surgical Hx: pt denies Medical Hx, pt denies Surgical Hx History of Surgery: No Anesthesia Reaction: No Hx Neurological Disorder: No Hx Respiratory Disorders: No Hx Cardiac Disorders: No Hx Psychiatric Problems: No Hx Miscellaneous Medical Probl: Yes (liver cirrhosis with ascites) Hx Alcohol Use: Yes (SCHEDULED TO ENTER REHAB 03/19) Hx Substance Use: No Hx Tobacco Use: Yes Smoking Status: Never smoker Physical Exam Vitals Vital Signs Date Temp Pulse Resp B/P (MAP) Pulse Ox O2 O2 Flow FiO2 Time Delivery Rate 02/11/19 97.4 95 24 126/88 94 08:36 (101) Physical Exam GENERAL: The patient is well developed and appropriate for usual state of health in no apparent distress HEENT: Pupils equal, round, and reactive to light. EOMI. There is no scleral icterus. NECK: C-spine is soft and supple, there is no meningismus. There is no cervical lymphadenopathy. LUNGS: Clear to auscultation bilaterally. There are no rales, wheezes or rhonchi. HEART: Regular rate and rhythm, no murmurs, clicks, rubs or gallops. ABDOMEN: Soft, distended with a fluid wave. No rebound, guarding or peritoneal signs EXTREMITIES: There is no peripheral cyanosis or edema. No focal swelling or erythema. NEURO: The patient moves all four extremities with 5/5 strength. Cranial nerves II - XII are intact. Normal gait. Alert and oriented, no asterixis SKIN: There is no apparent rash or petechiae. HEME/LYMPHATIC: There is no evidence of excessive bruising or lymphedema. PSYCHIATRIC: The patient does not appear anxious or depressed. Result Diagram: 02/11/19 0857 02/11/19 0857 Results 24 hrs Laboratory Tests Test 02/11/19 08:57 White Blood Count 4.1 10^3/ul Red Blood Count 3.72 10^6/ul Hemoglobin 11.9 g/dl Hematocrit 35.5 % Mean Corpuscular Volume 95.4 fl Mean Corpuscular Hemoglobin 32.0 pg Mean Corpuscular Hemoglobin Concent 33.5 g/dl Red Cell Distribution Width 14.3 % Platelet Count 57 10^3/UL Mean Platelet Volume 10.9 fl Immature Granulocytes % 0.200 % Neutrophils % % Lymphocytes % % Monocytes % % Eosinophils % % Basophils % % Nucleated Red Blood Cells % 0.0 /100WBC Immature Granulocytes # 0.010 10^3/ul Neutrophils # 10^3/ul Lymphocytes # 10^3/ul Monocytes # 10^3/ul Eosinophils # 10^3/ul Basophils # 10^3/ul Nucleated Red Blood Cells # 10^3/ul Prothrombin Time 14.0 Sec Prothrombin Time Ratio 1.1 INR International Normalized Ratio 1.07 Activated Partial Thromboplast Time 33.7 Sec Sodium Level 141 mmol/L Potassium Level 3.6 mmol/L Chloride Level 101 mmol/L Carbon Dioxide Level 30 mmol/L Anion Gap 10 Blood Urea Nitrogen 14 mg/dl Creatinine 1.17 mg/dl Est Glomerular Filtrat Rate mL/min > 60 mL/min Glucose Level 119 mg/dl Calcium Level 8.1 mg/dl Current Medications Medications Dose Sig/Ivan Start Time Status Last (Trade) Ordered Route PRN Stop Time Admin Dose Reason Admin Lidocaine 5 ml STK-MED 02/11/19 DC 02/11/19 (Xylocaine ONCE .ROUTE 11:55 11:56 1% (Mpf)) 02/11/19 11:56 Procedures/MDM Patient was taken to a room, seen and examined Patient underwent a large volume paracentesis. He was then stable and comfortable Medical decision m[age]-year-old male with recurrent ascites presents for his fairly routine therapeutic paracentesis. Patient shows no evidence of peritonitis or other high-risk comp occasions and seems appropriate for discharge. Departure Diagnosis: Primary Impression: Ascites DONELL GORMAN Feb 11, 2019 12:24
== END 2019-02-11 13:41 | disposition home or self-care (01) ==
LOC: E/R 08:33
DX: R18.8 Other ascites (principal)
CPT/HCPCS: 49083; 80048; 85025; 85610; 85730; Z7502; Z7610

== ENCOUNTER 2019-03-03 07:16 | Emergency (ER) | payer OTHER ==
[~2019-03-03] VITALS: Ht 171.4 cm; Wt 70.9 kg
[~2019-03-03 07:16] MED LIST changes: -ESOM40CA PO; -FOLI0.8T2 PO; -LACT20SO2 PO; -MELA10TA PO; -MIDO10TA PO
[2019-03-03 07:18] VITALS: Ht 171.4 cm; Wt 70.9 kg
[2019-03-03] MEDS ORDERED: LIDOCAINE 1% (MPF) 5 ML VIAL ONE (08:35)
[2019-03-03 09:16] VITALS: BP 137/96; PULSE 91; RESP 18
== END 2019-03-03 09:18 | disposition home or self-care (01) ==
LOC: E/R 07:16
DX: K70.31 Alcoholic cirrhosis of liver with ascites (principal)
CPT/HCPCS: 49083; Z7502; Z7610

== ENCOUNTER 2019-03-24 07:14 | Emergency (ER) | payer OTHER ==
[~2019-03-24] VITALS: Ht 170.2 cm; Wt 69.9 kg
[~2019-03-24 07:14] MED LIST changes: +MIDO10TA PO; +SPIR50TA PO
[2019-03-24 07:30] VITALS: Ht 170.2 cm; Wt 69.9 kg
[2019-03-24] MEDS ORDERED: LIDOCAINE 1% (MPF) 5 ML VIAL ONE (09:24)
[2019-03-24 09:45] VITALS: BP 137/86; PULSE 91; RESP 18
== END 2019-03-24 09:50 | disposition home or self-care (01) ==
LOC: E/R 07:14
DX: R18.8 Other ascites (principal); Z87.891 Personal history of nicotine dependence
CPT/HCPCS: 36415; 49083; 85025; Z7502; Z7610

== ENCOUNTER 2019-03-27 07:08 | Emergency (ER) | payer OTHER ==
[~2019-03-27] VITALS: Wt 70.0 kg
[2019-03-27 07:10] VITALS: Wt 70.0 kg
[2019-03-27] MEDS ORDERED: LIDOCAINE 1% (MPF) 5 ML VIAL ONE (08:59)
[2019-03-27 10:10] VITALS: BP 124/68; PULSE 84; RESP 18
== END 2019-03-27 10:11 | disposition home or self-care (01) ==
LOC: E/R 07:08
DX: K70.31 Alcoholic cirrhosis of liver with ascites (principal); Z87.891 Personal history of nicotine dependence
CPT/HCPCS: 49083; Z7502; Z7610

== ENCOUNTER 2019-05-06 09:25 | Emergency (ER) | payer OTHER ==
[~2019-05-06] VITALS: Ht 172.7 cm; Wt 74.3 kg
[2019-05-06 09:37] VITALS: Ht 172.7 cm; Wt 74.3 kg
[2019-05-06] MEDS ORDERED: LIDOCAINE 1% (MPF) 5 ML VIAL ONE (11:46)
[2019-05-06 12:03] VITALS: BP 106/74; PULSE 90; RESP 18
== END 2019-05-06 12:10 | disposition home or self-care (01) ==
LOC: E/R 09:25
DX: R18.8 Other ascites (principal); F17.210 Nicotine dependence, cigarettes, uncomplicated
CPT/HCPCS: 49083; Z7502; Z7610